=== PATIENT | female | born 1995 | race Hispanic/Latino ===

== ENCOUNTER 2017-11-22 12:22 | Emergency (ER) | payer OTHER ==
--- NOTE | 2017-11-22 12:52 | ER ---
Nurse's Notes [facility] Name: Noa Yoon Age: 22 yrs Sex: Female : 1995 Arrival Date: 11/22/2017 Time: 12:26 Bed 12 Private MD: Diagnosis: Bronchitis, not specified as acute or chronic;Conjunctivitis;Acute serous otitis media, unspecified ear Presentation: 11/22 12:34 Presenting complaint: Patient states: I am 38 weeks and have had a headache la1 and nausea since yesterday'. Transition of care: patient was not received from another setting of care. Onset of symptoms was November 22, 2017. Initial Sepsis Screen: Does the patient meet any 2 criteria? No. Patient's initial sepsis screen is negative. Does the patient have a suspected source of infection? No. Patient's initial sepsis screen is negative. Care prior to arrival: None. 12:34 Method Of Arrival: Ambulatory la1 12:34 Acuity: JULIETTE 4 la1 Historical: - Allergies: 12:35 No Known Allergies; la1 - PMHx: 12:35 None; la1 - Immunization history:: Adult Immunizations up to date. - Social history:: Smoking status: Patient/guardian denies using tobacco. Screenin:10 Abuse screen: Denies threats or abuse. Denies injuries from another. Nutritional ss screening: No deficits noted. Tuberculosis screening: Never had TB. Fall Risk None identified. Assessment: 13:00 General: Appears in no apparent distress. comfortable, Behavior is calm, cooperative, ss Reports feeling ill for 1-2 days, Denies fever. Pain: Complains of pain in left ear Pain currently is 3 out of 10 on a pain scale. Neuro: Level of Consciousness is awake, alert, obeys commands, Oriented to person, place, time, situation. Cardiovascular: Capillary refill < 3 seconds is brisk in bilateral fingers. Respiratory: Airway is patent Respiratory effort is even, unlabored, Respiratory pattern is regular, symmetrical, Breath sounds are clear bilaterally. GI: Abdomen is round patient is 38 weeks , reportedly Reports nausea. : No signs and/or symptoms were reported regarding the genitourinary system. Denies burning with urination, urinary frequency, vaginal bleeding. EENT: eyes are reddened bilaterally. Pt c/o itching to bilateral eyes. . Derm: Skin is intact, is healthy with good turgor, Skin is pink, warm \T\ dry. normal. Musculoskeletal: Circulation, motion, and sensation intact. Range of motion: intact in all extremities, Swelling absent. Vital Signs: 12:35 BP 119 / 79; Pulse 116; Resp 19; Temp 97.5; Pulse Ox 100% on R/A; Weight 61.23 kg; la1 ED Course: 12:26 Patient arrived in ED. as 12:31 [facility] Gutierrez [facility]-C [facility]. snw 12:31 Andrey Munson MD is Attending Physician. snw 12:35 Triage completed. la1 12:35 Arm band placed on left wrist. la1 13:05 Jennifer Logan, STEVE is Primary Nurse. ss 13:10 Patient has correct armband on for positive identification. Bed in low position. Call ss light in reach. 13:10 No provider procedures requiring assistance completed. Patient did not have IV access ss during this emergency room visit. Administered Medications: 13:10 Drug: Augmentin 875 mg Route: PO; ss 13:20 Follow up: Response: No adverse reaction; Medication administered at discharge. ss 13:14 Drug: Gentamicin Drops 0.3 % 2 drops Route: Ophthalmic; Site: both eyes; ss 13:19 Not Given (other intervention used): Gentamicin Ointment 0.3 % 0.5 inches Ophthalmic ss once; Both Eyes Outcome: 12:51 Discharge ordered by MD. snw 13:20 Discharged to home ambulatory. ss 13:20 Condition: good 13:20 Discharge instructions given to patient, Instructed on discharge instructions, follow up and referral plans. medication usage, Demonstrated understanding of instructions, follow-up care, medications, Prescriptions given X 2. 13:23 Patient left the ED. ss Signatures: Mary Gutierrez FNP-C [employer]-Csnw Yancy Jensen as Jennifer Logan, RN STEVE Jorge Middleton RN RN la
--- NOTE | 2017-11-22 12:52 | EDPHYS ---
Physician Documentation [facility] Name: Noa Yoon Age: 22 yrs Sex: Female : 1995 Arrival Date: 11/22/2017 Time: 12:26 Bed 12 Private MD: ED Physician Andrey Munson HPI: 11/22 14:31 This 22 yrs old Female presents to ER via Ambulatory with complaints of Cough, snw Congestion, Headache. 14:31 The patient or guardian reports cough, described as moderate. Onset: The snw symptoms/episode began/occurred suddenly, 2 day(s) ago, and became persistent. Severity of symptoms: At their worst the symptoms were moderate. Associated signs and symptoms: The patient has no apparent associated signs or symptoms. It is unknown whether or not the patient has had similar symptoms in the past. per patient assistant. Son with similar s/s. Historical: - Allergies: 12:35 No Known Allergies; la1 - PMHx: 12:35 None; la1 - Immunization history:: Adult Immunizations up to date. - Social history:: Smoking status: Patient/guardian denies using tobacco. ROS: 14:28 Eyes: Negative for injury, pain, redness, and discharge. snw 14:28 Neck: Negative for injury, pain, and swelling, Cardiovascular: Negative for chest pain, palpitations, and edema. 14:28 Abdomen/GI: Negative for abdominal pain, nausea, vomiting, diarrhea, and constipation, Back: Negative for injury and pain, : Negative for injury, bleeding, discharge, and swelling, MS/Extremity: Negative for injury and deformity, Skin: Negative for injury, rash, and discoloration, Neuro: Negative for headache, weakness, numbness, tingling, and seizure. 14:28 Constitutional: Positive for body aches, malaise. 14:28 ENT: Positive for ear pain. 14:28 Respiratory: Positive for cough. Exam: 14:27 Constitutional: This is a well developed, well nourished patient who is awake, alert, snw and in no acute distress. Head/Face: Normocephalic, atraumatic. Eyes: Pupils equal round and reactive to light, extra-ocular motions intact. Lids and lashes normal. Conjunctiva and sclera are non-icteric but injected. Cornea within normal limits. Periorbital areas with no swelling, redness, or edema. Mild tenderness/pressure sensation around right eye Neck: Trachea midline, no thyromegaly or masses palpated, and no cervical lymphadenopathy. Supple, full range of motion without nuchal rigidity, or vertebral point tenderness. No Meningismus. Chest/axilla: Normal chest wall appearance and motion. Nontender with no deformity. No lesions are appreciated. Cardiovascular: Regular rate and rhythm with a normal S1 and S2. No gallops, murmurs, or rubs. Normal PMI, no JVD. No pulse deficits. Abdomen/GI: Soft, non-tender, with normal bowel sounds. No distension or tympany. No guarding or rebound. No evidence of tenderness throughout. + Gravid appearance, denies abd pain, denies discharge, + 38 wk IUP Back: No spinal tenderness. No costovertebral tenderness. Full range of motion. Skin: Warm, dry with normal turgor. Normal color with no rashes, no lesions, and no evidence of cellulitis. MS/ Extremity: Pulses equal, no cyanosis. Neurovascular intact. Full, normal range of motion. Neuro: Awake and alert, GCS 15, oriented to person, place, time, and situation. Cranial nerves II-XII grossly intact. Motor strength 5/5 in all extremities. Sensory grossly intact. Cerebellar exam normal. Normal gait. 14:27 ENT: TM's: fluid levels, bilaterally, Nose: nasal drainage, and is seen coming from both nares, that is clear, Mouth: is normal, Voice: is normal. 14:27 Respiratory: the patient does not display signs of respiratory distress, Respirations: normal, Breath sounds: + upper airway congestion. bronchitic cough. Vital Signs: 12:35 BP 119 / 79; Pulse 116; Resp 19; Temp 97.5; Pulse Ox 100% on R/A; Weight 61.23 kg; la1 MDM: 12:38 Patient medically screened. snw 14:28 Data reviewed: vital signs, nurses notes. Data interpreted: Pulse oximetry: on room air snw is 100 %. Counseling: I had a detailed discussion with the patient and/or guardian regarding: the historical points, exam findings, and any diagnostic results supporting the discharge/admit diagnosis, the need for outpatient follow up, to return to the emergency department if symptoms worsen or persist or if there are any questions or concerns that arise at home. Special discussion: Based on the history and exam findings, there is no indication for further emergent testing or inpatient evaluation. I discussed with the patient/guardian the need to see the OB Gyne specialist for further evaluation of the symptoms. I discussed with the patient/guardian the need to see the primary care provider for further evaluation of the symptoms. Administered Medications: 13:10 Drug: Augmentin 875 mg Route: PO; ss 13:20 Follow up: Response: No adverse reaction; Medication administered at discharge. ss 13:14 Drug: Gentamicin Drops 0.3 % 2 drops Route: Ophthalmic; Site: both eyes; ss 13:19 Not Given (other intervention used): Gentamicin Ointment 0.3 % 0.5 inches Ophthalmic ss once; Both Eyes Disposition: 11/22/17 12:51 Discharged to Home. Impression: Bronchitis, not specified as acute or chronic, Conjunctivitis, Acute serous otitis media, unspecified ear. - Condition is Stable. - Discharge Instructions: Acute Bronchitis, Conjunctivitis (Viral and Bacterial), Medicines During , Cool Mist Vaporizers, Third Trimester of , [id number]. - Prescriptions for Augmentin 875- 125 mg Oral Tablet - take 1 tablet by ORAL route every 12 hours for 10 days; 20 tablet. Vigamox 0.5 % Ophthalmic Drops - instill 1 drop by OPHTHALMIC route every 8 hours for 7 days; 5 milliliter. - Medication Reconciliation Form, Thank You Letter, Antibiotic Education, Prescription Opioid Use form. - Follow up: Private Physician; When: 1 - 2 days; Reason: Recheck today's complaints, Continuance of care, Re-evaluation by your physician. Follow up: Emergency Department; When: As needed; Reason: Worsening of condition. Addendum: 12/16/2017 12:28 Co-signature as Attending Physician, Andrey Munson MD available for consultation at p s1 all times. . Signatures: Mary Gutierrez, ADWOA NG-Jennifer Oswald RN RN ss Jorge Middleton RN RN la1 Andrey Munson MD MD ps1 Corrections: (The following items were deleted from the chart) 11/22 13:23 12:51 11/22/2017 12:51 Discharged to Home. Impression: Bronchitis, not specified as ss acute or chronic; Conjunctivitis; Acute serous otitis media, unspecified ear. Condition is Stable. Forms are Medication Reconciliation Form, Thank You Letter, Antibiotic Education, Prescription Opioid Use. Follow up: Private Physician; When: 1 - 2 days; Reason: Recheck today's complaints, Continuance of care, Re-evaluation by your physician. Follow up: Emergency Department; When: As needed; Reason: Worsening of condition. snw 14:31 14:27 Constitutional: This is a well developed, well nourished patient who is awake, snw alert, and in no acute distress. Head/Face: Normocephalic, atraumatic. Eyes: Pupils equal round and reactive to light, extra-ocular motions intact. Lids and lashes normal. Conjunctiva and sclera are non-icteric and not injected. Cornea within normal limits. Periorbital areas with no swelling, redness, or edema. Neck: Trachea midline, no thyromegaly or masses palpated, and no cervical lymphadenopathy. Supple, full range of motion without nuchal rigidity, or vertebral point tenderness. No Meningismus. Chest/axilla: Normal chest wall appearance and motion. Nontender with no deformity. No lesions are appreciated. Cardiovascular: Regular rate and rhythm with a normal S1 and S2. No gallops, murmurs, or rubs. Normal PMI, no JVD. No pulse deficits. Abdomen/GI: Soft, non-tender, with normal bowel sounds. No distension or tympany. No guarding or rebound. No evidence of tenderness throughout. Back: No spinal tenderness. No costovertebral tenderness. Full range of motion. Skin: Warm, dry with normal turgor. Normal color with no rashes, no lesions, and no evidence of cellulitis. MS/ Extremity: Pulses equal, no cyanosis. Neurovascular intact. Full, normal range of motion. Neuro: Awake and alert, GCS 15, oriented to person, place, time, and situation. Cranial nerves II-XII grossly intact. Motor strength 5/5 in all extremities. Sensory grossly intact. Cerebellar exam normal. Normal gait. snw
[2017-11-22] MEDS ORDERED: GENTAMICIN 0.3% OPTH DROP 5ML ONE (13:10)
[2017-11-22] MEDS ORDERED: AMOX/K CLAV 875 MG TAB ONE (13:10)
[2017-11-22 13:27] VITALS: BP 119/79; TEMP 97.5; O2SAT 100
== END 2017-11-22 13:23 | disposition home or self-care (01) ==
LOC: ER 12:22
DX: J40 Bronchitis, not specified as acute or chronic (principal); H10.9 Unspecified conjunctivitis; H65.06 Acute serous otitis media, recurrent, bilateral
CPT/HCPCS: 99283

== ENCOUNTER 2017-12-01 05:23 | Inpatient (IN) | payer OTHER ==
[2017-11-30 20:11] LABS: RPR Titer ND
[2017-11-30 20:12] LABS: Absolute Lymphocytes (CBC) 1.3 K/uL (0.7-4.9); Absolute Monocytes 0.5 K/uL (0.1-1.3); Absolute Neutrophil 8.5 K/uL (1.8-8.0); Basophils % 0.2 % (0-1.3); Eosinophils % 0.5 % (0-4.4); Hematocrit 28.4 % (36.0-45.0); MCH 24.7 pg (27.0-35.0); MCV 74.3 fL (80-100); MPV 7.9 fL (7.6-11.3); Monocytes % 4.6 % (3.3-12.3); RBC Red Blood Cell Count 3.82 M/uL (3.86-4.86)
[2017-11-30 20:22] LABS: Urine Appearance CLEAR; Urine Bilirubin NEGATIVE (NEG); Urine Blood NEGATIVE (NEG); Urine Color YELLOW; Urine Glucose NEGATIVE (NEG); Urine Microscopic Reflex NO UMIC; Urine Protein NEGATIVE (NEG); Urine Specific Gravity 1.015 (1.005-1.030)
[2017-11-30 23:42] LABS: RPR (Rapid Plasma Reagin) NON-REACT (NON-REACT)
[~2017-12-01 05:23] MED LIST: CEFAZOLIN/NS 1gm 1 GM/50 ML BAG IVPB SCH; FAMOTIDINE 20 MG/2 ML VIAL IV ONE; METHYLERGONOVINE 0.2MG/ML AMP IM ONE; METOCLOPRAMIDE 10 MG/2mL INJ IV SCH; NA CIT/CITRIC AC 30 ML ORAL UDC PO ONE; Ringers Lactate 1,000 ML IV PRN; Ringers Lactate 1,000 ML IV SCH
[2017-12-01] MEDS ORDERED: FAMOTIDINE 20 MG/2 ML VIAL IV ONE (06:28)
[2017-12-01] MEDS ORDERED: CEFAZOLIN/SWI 2gm 2 GM/20 ML SYR ONE (06:45)
[2017-12-01] MEDS ORDERED: EPHEDRINE SULF 50 MG/ML SYR ONE (07:06)
[2017-12-01] MEDS ORDERED: MORPHINE SULFATE/PF 1 MG/ML (10 ML AMP) ONE (07:06)
[2017-12-01] MEDS ORDERED: NS 0.9% VIAL 10 ML ONE (07:07)
[2017-12-01] MEDS ORDERED: OXYTOCIN 10 UNIT/ML ML IV ONE ×2 (07:09)
[2017-12-01 07:17] VITALS: BMI 23.8
[2017-12-01] MEDS ORDERED: OXYTOCIN/LR 20 UNIT/1,000 ML BAG IV ONE (08:25)
--- NOTE | 2017-12-01 10:52 | PREOPHP ---
Date of Admission: 12/01/2017 History Of Present Illness: A 22-year-old female, 2, para 1, for repeat . On , she will be 39 weeks and 1-2 days. Full discussion previously about infection, blood loss, anesth etic complications, injury to bladder, bowel, ureter, postoperative complications, clots in legs, and pneumonia. The patient knows fully well this does not constitute all the possible problems that cou ld occur during or following surgery. Family History: Father with prostate cancer. Allergies: SHE HAS NO ALLERGIES. SHE HAS HAD A PREVIOUS C SECTION. SHE HAS BEEN ON VITAMINS AND IRON. WAS SEEN IN THE EMERG ENCY ROOM. PLACED ON ANTIBIOTICS AND EYEDROPS. SHE KNOWS TO CONTINUE THOSE. SHE HAS HAD NO FEVER O R ANY OTHER PROBLEMS SINCE SHE WAS SEEN. Physical Examination: Lungs: Clear. Heart: Clear without murmurs, thrills, heaves, or rubs. Breasts: Not examined. Abdomen: Term size. The baby is vertex, is still fairly high. Extremities: Clear without edema, cyanosis, or clubbing. Plan: We will proceed with repeat section on Friday. Full discussion with the ann ent. NAYELY/AMANDA Voice ID: [id number]
[2017-12-01] MEDS ORDERED: KETOROLAC 30 MG/ML INJ IV PRN (11:06)
[2017-12-01] MEDS ORDERED: Oxycodone HCl/Acetaminophen 1 TAB TAB PO PRN ×2 (11:06)
[2017-12-01] MEDS ORDERED: ACETAMINOPHEN 500 MG TAB PO PRN (11:06)
[2017-12-01] MEDS ORDERED: DIPHENHYDRAMINE 25 MG TAB/CAP PO PRN (11:06)
[2017-12-01] MEDS ORDERED: KETOROLAC 30 MG/ML INJ IM PRN (11:06)
[2017-12-01] MEDS ORDERED: BISACODYL 10 MG RECTAL SUPP RECT PRN (11:06)
[2017-12-01] MEDS ORDERED: ONDANSETRON 4 MG/2 ML VIAL IV PRN (11:06)
[2017-12-01] MEDS ORDERED: OXYTOCIN/LR 20 UNIT/1,000 ML BAG IV SCH (12:00)
[2017-12-01] MEDS ORDERED: CEFAZOLIN/SWI 2gm 2 GM/20 ML SYR IV SCH (15:30)
[2017-12-01] MEDS: D5LR 1,000 ML with OXYTOCIN 20 UNIT IV SCH ×2 (17:00)
[2017-12-02] MEDS: D5LR 1,000 ML with OXYTOCIN 20 UNIT IV SCH ×2 (06:30)
[2017-12-02] MEDS ORDERED: MAGNESIUM HYDROXIDE 8% 30 ML PO PRN (11:06)
[2017-12-03 02:53] LABS: HBsAG Nonreactive (Nonreactive)
[2017-12-03] MEDS ORDERED: MEASLES,MUMPS,RUBELLA VAC 0.5ML SQVAC ONE (08:27)
--- NOTE | 2017-12-03 08:45 | OP ---
Surgeon: Jared Beltran MD 2, para 1, at 39 weeks 2 days, for a repeat section. Full preoperative counseling c oncerning procedure and possible complications, including infection, blood loss, anesthetic complicat ions, injury to bladder, bowel, ureter, postoperative complications, clots in legs, and pneumonia. T he patient knows fully well this does not constitute all the possible problems that could occur durin g or following surgery. Spinal block, Dr. Ochoa group. Dog Licenser surgeon, Dr. Man. After p repping and draping, timeout was performed. Then a Pfannenstiel incision was created over the previo us incision site. The incision was carried to the fascia. The fascia was incised and incision latoya d transversely bilaterally. Anterior fascial plane was developed with both blunt and sharp dissectio n. The underlying rectus muscle was . Perineum was elevated and entered. Low transverse ut erine incision was created. At this time, a term male , Apgars 9 and 9 was delivered with nuch al cord x1 loosely. Vacuum suction was used to help deliver the head. Uterus cleared of clot and bl ood, and exteriorized. The placenta was removed manually. Cervical os was dilated with ring clamp. The uterus was closed with a running-locked stitch of 1 chromic. There was bleeding from the left an gle at approximately 4. Czcilj-so-xdzum stitch was placed at this point for complete hemostasis. On the right, approximately 2 mpacpm-dz-wexno stitches in the extreme portion of the incision. Estimate d blood loss was 1000 to 1100 cc. Uterus was replaced into the peritoneal cavity. Gutters were clear ed of clot and blood. Reinspection of the suture line showed no further bleeding. The fascia was cl osed with 1 Vicryl, after muscles were closed with 0 Vicryl. The subcutaneous tissue was closed with 2-0 plain running stitch with absorbable michelle placed and then metal michelle. The patient tolerat ed all procedures well and transferred back to her room in good condition. Final Diagnoses: Term intrauterine , repeat section, spinal block anesthesia. NAYELY/AMANDA Voice ID: [id number] Report ID: [id number]
--- NOTE | 2017-12-03 08:48 | PN ---
Postoperatively, the patient is doing quite well. H and H with minimal change. Lochia is normal. V ital signs are all stable. We will discontinue her Ratliff and IV, begin ambulation. If she continues to do well, she will go home tomorrow. No problems reported by the patient. NAYELY/AMANDA Voice ID: [id number] Report ID: [id number]
[2017-12-03 09:18] VITALS: BP 118/76; TEMP 97.5
--- NOTE | 2017-12-04 06:16 | DS ---
Date of Discharge: 12/03/2017 A 22-year-old female, repeat section at 39 weeks, delivery of a 7 pounds 9 ounces male infan t, Apgars 9 and 9. Spinal block anesthesia. Estimated blood loss less than 1000 cc . Pos toperatively afebrile, ambulating, voiding. Lochia is normal. No post spinal block problems. Dismi ssed with tramadol for analgesia. We will return to my office next week for staple removal. Knows t o report any temperature elevation of 100 degrees or more. She is Rh positive, equivocal. Immunity to rubella. Rubella immunization has been offered. She has had her Tdap immunization during the pre gnancy. Final Diagnoses: 1.Term intrauterine . 2.Repeat section. 3.Spinal block anesthesia. Rubella immunization offered. NAYELY/AMANDA Voice ID: [id number] Report ID: [id number]
== END 2017-12-03 10:30 | disposition home or self-care (01) | DRG 766 ==
LOC: 2ND-WC 05:23
PROVIDERS: ADMIT Specialist; ATTEND Specialist
PROC: 10D00Z1 Extraction of Products of Conception, Low, Open Approach (ICD-10-PCS; principal; 2017-12-01)
DX: O34.211 Maternal care for low transverse scar from previous cesarean delivery (principal); O69.81X0 Labor and delivery complicated by cord around neck, without compression, not applicable or unspecified; Z3A.39 39 weeks gestation of pregnancy; Z37.0 Single live birth; Z23 Encounter for immunization
CPT/HCPCS: 36415; 81003; 85014; 85025; 86592; 86850; 86900; 86901; 87340; 88307; 90707; J0690; J2210; J2590; J2765

== ENCOUNTER 2018-03-02 20:30 | Emergency (ER) | payer OTHER, SELFPAY ==
--- NOTE | 2018-03-02 21:15 | ER ---
Nurse's Notes [facility] Name: Noa Yoon Age: 22 yrs Sex: Female : 1995 Arrival Date: 03/02/2018 Time: 20:57 Bed 11 Private MD: Diagnosis: Muscle spasm Presentation: 03/02 21:01 Presenting complaint: Patient states: pain to the L side of her neck x 2 days. States aa1 she thinks she slept wrong. Transition of care: patient was not received from another setting of care. Onset of symptoms was March 01, 2018. Risk Assessment: Do you want to hurt yourself or someone else? Patient reports no desire to harm self or others. Initial Sepsis Screen: Does the patient meet any 2 criteria? No. Patient's initial sepsis screen is negative. Does the patient have a suspected source of infection? No. Patient's initial sepsis screen is negative. Care prior to arrival: None. 21:01 Method Of Arrival: Ambulatory aa1 21:01 Acuity: JULIETTE 4 aa1 Triage Assessment: 21:49 General: Behavior is calm. lc1 RESIDENTIAL SPECIALIST: 21:49 LMP N/A - control method 1 Historical: - Allergies: 21:03 No Known Allergies; aa1 - Home Meds: 21:03 None [Active]; aa1 - PMHx: 21:03 None; aa1 - PSHx: 21:03 None; aa1 - Immunization history:: Adult Immunizations up to date. - Social history:: Smoking status: Patient/guardian denies using tobacco. - Ebola Screening: : No symptoms or risks identified at this time. Screenin:26 Abuse screen: Denies threats or abuse. Nutritional screening: No deficits noted. lc1 Tuberculosis screening: No symptoms or risk factors identified. Fall Risk None identified. Assessment: 21:08 General: Appears uncomfortable, well groomed, well developed. Pain: Complains of pain lc1 in left trapezius Pain does not radiate. Pain currently is 8 out of 10 on a pain scale. Quality of pain is described as tender, Pain began 2-3 days ago. Is continuous, Aggravated by increased activity. Neuro: No deficits noted. Cardiovascular: Reports. Respiratory: No deficits noted. GI: No signs and/or symptoms were reported involving the gastrointestinal system. : No signs and/or symptoms were reported regarding the genitourinary system. EENT: No signs and/or symptoms were reported regarding the EENT system. Derm: No signs and/or symptoms reported regarding the dermatologic system. Musculoskeletal: No signs and/or symptoms reported regarding the musculoskeletal system. Injury Description: patient denies any injuries to neck, states she thinks she slept wrong, has tried icy hot but that has not helped. Vital Signs: 21:03 BP 120 / 88; Pulse 92; Resp 18; Temp 98.2; Pulse Ox 100% on R/A; Weight 49.9 kg; Height aa1 5 ft. 3 in. (160.02 cm); Pain 8/10; 21:26 BP 120 / 89; Pulse 79; Resp 18; Temp 96.7(TE); Pain 8/10; lc1 21:03 Body Mass Index 19.49 (49.90 kg, 160.02 cm) aa1 ED Course: 20:57 Patient arrived in ED. ds1 21:01 Jose A Judge PA is PHCP. 8 21:01 Andrey Munson MD is Attending Physician. 8 21:02 Triage completed. aa1 21:03 Shayla Omer is Primary Nurse. lc1 21:03 Arm band placed on right wrist. Patient placed in an exam room, on a stretcher. aa1 21:26 Patient has correct armband on for positive identification. Call light in reach. lc1 21:26 No provider procedures requiring assistance completed. Patient did not have IV access lc1 during this emergency room visit. Administered Medications: 21:35 Drug: TORadol 60 mg Route: IM; Site: left deltoid; 1 21:50 Follow up: Response: No adverse reaction lc1 21:38 Drug: Valium 5 mg Route: PO; lc1 21:50 Follow up: Response: No adverse reaction 1 Outcome: 21:15 Discharge ordered by . 8 21:26 Discharged to home ambulatory. 1 21:26 Condition: good 21:26 Discharge instructions given to patient, Instructed on discharge instructions, follow up and referral plans. medication usage, Demonstrated understanding of instructions, follow-up care, medications, Prescriptions given X 2. 21:51 Patient left the ED. 1 Signatures: Raysa Castellanos RN RN aa1 Alvina Myers ds1 Shayla Omer lc1 Jose A Judge, HARRY MCDONALD [id number]
--- NOTE | 2018-03-02 21:15 | EDPHYS ---
Physician Documentation [facility] Name: Noa Yoon Age: 22 yrs Sex: Female : 1995 Arrival Date: 03/02/2018 Time: 20:57 Bed 11 Private MD: ED Physician Andrey Munson HPI: 03/02 21:13 This 22 yrs old Female presents to ER via Ambulatory with complaints of Neck jr8 Spasms. 21:13 Patient stated that she woke up this morning with pain to left lateral trapezius jr8 region. Denies trauma to region . Onset: The symptoms/episode began/occurred acutely, today. Severity of symptoms: At their worst the symptoms were moderate in the emergency department the symptoms are unchanged. The patient has not experienced similar symptoms in the past. The patient has not recently seen a physician. SPECIALIST PHYSICIANS: 21:49 LMP N/A - control method lc1 Historical: - Allergies: 21:03 No Known Allergies; aa1 - Home Meds: 21:03 None [Active]; aa1 - PMHx: 21:03 None; aa1 - PSHx: 21:03 None; aa1 - Immunization history:: Adult Immunizations up to date. - Social history:: Smoking status: Patient/guardian denies using tobacco. - Ebola Screening: : No symptoms or risks identified at this time. ROS: 21:13 Eyes: Negative for injury, pain, redness, and discharge, ENT: Negative for injury, jr8 pain, and discharge, Neck: Negative for injury, pain, and swelling, Cardiovascular: Negative for chest pain, palpitations, and edema, Respiratory: Negative for shortness of breath, cough, wheezing, and pleuritic chest pain, Abdomen/GI: Negative for abdominal pain, nausea, vomiting, diarrhea, and constipation, MS/Extremity: Negative for injury and deformity, Skin: Negative for injury, rash, and discoloration, Neuro: Negative for headache, weakness, numbness, tingling, and seizure. 21:13 Back: Positive for pain at rest, pain with movement, of the left trapezius. Exam: 21:13 Eyes: Pupils equal round and reactive to light, extra-ocular motions intact. Lids and jr8 lashes normal. Conjunctiva and sclera are non-icteric and not injected. Cornea within normal limits. Periorbital areas with no swelling, redness, or edema. ENT: Nares patent. No nasal discharge, no septal abnormalities noted. Tympanic membranes are normal and external auditory canals are clear. Oropharynx with no redness, swelling, or masses, exudates, or evidence of obstruction, uvula midline. Mucous membranes moist. Neck: Trachea midline, no thyromegaly or masses palpated, and no cervical lymphadenopathy. Supple, full range of motion without nuchal rigidity, or vertebral point tenderness. No Meningismus. Cardiovascular: Regular rate and rhythm with a normal S1 and S2. No gallops, murmurs, or rubs. Normal PMI, no JVD. No pulse deficits. Respiratory: Lungs have equal breath sounds bilaterally, clear to auscultation and percussion. No rales, rhonchi or wheezes noted. No increased work of breathing, no retractions or nasal flaring. Abdomen/GI: Soft, non-tender, with normal bowel sounds. No distension or tympany. No guarding or rebound. No evidence of tenderness throughout. Skin: Warm, dry with normal turgor. Normal color with no rashes, no lesions, and no evidence of cellulitis. MS/ Extremity: Pulses equal, no cyanosis. Neurovascular intact. Full, normal range of motion. Neuro: Awake and alert, GCS 15, oriented to person, place, time, and situation. Cranial nerves II-XII grossly intact. Motor strength 5/5 in all extremities. Sensory grossly intact. Cerebellar exam normal. Normal gait. 21:13 Back: pain, that is moderate, of the left trapezius, ROM is painful, with rotation to the left, normal spinal alignment noted, CVA tenderness, is absent. Vital Signs: 21:03 BP 120 / 88; Pulse 92; Resp 18; Temp 98.2; Pulse Ox 100% on R/A; Weight 49.9 kg; Height aa1 5 ft. 3 in. (160.02 cm); Pain 8/10; 21:26 BP 120 / 89; Pulse 79; Resp 18; Temp 96.7(TE); Pain 8/10; lc1 21:03 Body Mass Index 19.49 (49.90 kg, 160.02 cm) aa1 MDM: 21:01 Patient medically screened. jr8 21:13 Data reviewed: vital signs, nurses notes, and as a result, I will discharge patient. jr8 Data interpreted: Pulse oximetry: on room air is 100 %. Interpretation: normal. Counseling: I had a detailed discussion with the patient and/or guardian regarding: the historical points, exam findings, and any diagnostic results supporting the discharge/admit diagnosis, the need for outpatient follow up, a family practitioner, to return to the emergency department if symptoms worsen or persist or if there are any questions or concerns that arise at home. Administered Medications: 21:35 Drug: TORadol 60 mg Route: IM; Site: left deltoid; lc1 21:50 Follow up: Response: No adverse reaction lc1 21:38 Drug: Valium 5 mg Route: PO; lc1 21:50 Follow up: Response: No adverse reaction lc1 Disposition: 23:15 Co-signature as Attending Physician, Andrey Munson MD I agree with the assessment and ps1 plan of care. Disposition: 03/02/18 21:15 Discharged to Home. Impression: Muscle spasm. - Condition is Stable. - Discharge Instructions: Muscle Cramps and Spasms. - Prescriptions for Ibuprofen 800 mg Oral Tablet - take 1 tablet by ORAL route every 12 hours As needed take with food; 20 tablet. Robaxin 500 mg Oral Tablet - take 2 tablet by ORAL route every 6 hours As needed; 40 tablet. - Medication Reconciliation Form, Thank You Letter, Antibiotic Education, Prescription Opioid Use form. - Follow up: Private Physician; When: 2 - 3 days; Reason: Recheck today's complaints, Continuance of care, Re-evaluation by your physician. - Problem is new. - Symptoms have improved. Signatures: Raysa Castellanos RN RN aa1 Shayla Omer lc1 Jose A Judge PA PA jr8 Andrey Munson MD MD ps1 Corrections: (The following items were deleted from the chart) 21:51 21:15 03/02/2018 21:15 Discharged to Home. Impression: Muscle spasm. Condition is lc1 Stable. Forms are Medication Reconciliation Form, Thank You Letter, Antibiotic Education, Prescription Opioid Use. Follow up: Private Physician; When: 2 - 3 days; Reason: Recheck today's complaints, Continuance of care, Re-evaluation by your physician. Problem is new. Symptoms have improved. jr8
[2018-03-02] MEDS ORDERED: KETOROLAC 30 MG/ML INJ ONE (21:35)
[2018-03-02] MEDS ORDERED: DIAZEPAM 5 MG TABLET ONE (21:35)
[2018-03-02 22:09] VITALS: O2SAT 100
[2018-03-02 22:20] VITALS: BP 120/89; TEMP 96.7
== END 2018-03-02 21:51 | disposition home or self-care (01) ==
LOC: ER 20:30
DX: M62.838 Other muscle spasm (principal)
CPT/HCPCS: 96372; 99283

== ENCOUNTER 2018-12-07 14:02 | Emergency (ER) | payer SELFPAY ==
--- NOTE | 2018-12-07 16:16 | ER ---
Nurse's Notes [facility] Name: Noa Yoon Age: 23 yrs Sex: Female : 1995 Arrival Date: 12/07/2018 Time: 14:07 Bed Treatment Private MD: Diagnosis: Acute upper respiratory infection, unspecified Presentation: 12/07 14:31 Presenting complaint: Patient states: cough and nasal congestion that began yesterday. ss Transition of care: patient was not received from another setting of care. Resp Distress? No respiratory distress is noted at this time. Onset of symptoms was December 06, 2018. Risk Assessment: Do you want to hurt yourself or someone else? Patient reports no desire to harm self or others. Initial Sepsis Screen: Does the patient meet any 2 criteria? No. Patient's initial sepsis screen is negative. Does the patient have a suspected source of infection? No. Patient's initial sepsis screen is negative. Care prior to arrival: None. 14:31 Method Of Arrival: Ambulatory ss 14:31 Acuity: JULIETTE 4 ss SPOTTER: 17:31 LMP N/A - iw Historical: - Allergies: 14:32 No Known Allergies; ss - Home Meds: 14:32 None [Active]; ss - PMHx: 14:32 None; ss - PSHx: 14:32 ; ss - Immunization history:: Adult Immunizations up to date. - Social history:: Smoking status: Patient/guardian denies using tobacco. - Ebola Screening: : Patient denies exposure to infectious person Patient denies travel to an Ebola-affected area in the 21 days before illness onset. Screenin:26 Abuse screen: Denies threats or abuse. Denies injuries from another. Nutritional iw screening: No deficits noted. Tuberculosis screening: No symptoms or risk factors identified. Fall Risk None identified. Assessment: 15:27 General: Appears in no apparent distress. Behavior is calm, cooperative. Pain: Denies iw pain. Neuro: Level of Consciousness is awake, alert, obeys commands. Cardiovascular: Capillary refill < 3 seconds Patient's skin is warm and dry. Respiratory: Airway is patent Respiratory effort is even, unlabored, Breath sounds are clear bilaterally. Derm: Skin is intact, is healthy with good turgor. Vital Signs: 14:36 BP 101 / 65 RA; Pulse 96; Resp 20; Temp 97.9(O); Pulse Ox 97% ; ss ED Course: 14:07 Patient arrived in ED. mr 14:32 Triage completed. ss 14:32 Arm band placed on right wrist. ss 15:25 Yumi Álvarez, RN is Primary Nurse. iw 15:28 Anna Sharma FNP-C is [facility]. kb 15:28 Eulogio Velazquez MD is Attending Physician. kb 16:05 Patient has correct armband on for positive identification. iw 16:26 No provider procedures requiring assistance completed. Patient did not have IV access iw during this emergency room visit. Administered Medications: No medications were administered Outcome: 16:16 Discharge ordered by MD. kb 16:26 Discharged to home ambulatory, with family. iw 16:26 Condition: good 16:26 Discharge instructions given to family, Instructed on discharge instructions, follow up and referral plans. Demonstrated understanding of instructions, follow-up care. 16:27 Patient left the ED. iw Signatures: Anna Sharma FNP-C FNP-Ckb Rivera, Mary Yumi Álvarez, RN RN iw Jennifer Logan RN RN ss
--- NOTE | 2018-12-07 16:16 | EDPHYS ---
Physician Documentation [facility] Name: Noa Yoon Age: 23 yrs Sex: Female : 1995 Arrival Date: 12/07/2018 Time: 14:07 Bed Treatment Private MD: ED Physician Eulogio Velazquez HPI: 12/07 16:53 This 23 yrs old Female presents to ER via Ambulatory with complaints of Cough, kb Congestion. 16:53 The patient or guardian reports cough, that is intermittent, described as moderate, kb with no sputum. Onset: The symptoms/episode began/occurred yesterday. Severity of symptoms: At their worst the symptoms were moderate, in the emergency department the symptoms are unchanged. Modifying factors: The symptoms are alleviated by nothing, the symptoms are aggravated by nothing. Associated signs and symptoms: Pertinent positives: sore throat, Pertinent negatives: chest pain, diarrhea, ear ache, fever, nausea, rhinorrhea, vomiting. The patient has not experienced similar symptoms in the past. The patient has not recently seen a physician. CHANNEL TURNER: 17:31 LMP N/A - iw Historical: - Allergies: 14:32 No Known Allergies; ss - Home Meds: 14:32 None [Active]; ss - PMHx: 14:32 None; ss - PSHx: 14:32 ; ss - Immunization history:: Adult Immunizations up to date. - Social history:: Smoking status: Patient/guardian denies using tobacco. - Ebola Screening: : Patient denies exposure to infectious person Patient denies travel to an Ebola-affected area in the 21 days before illness onset. ROS: 16:51 Constitutional: Negative for fever, chills, and weight loss, Cardiovascular: Negative kb for chest pain, palpitations, and edema, Abdomen/GI: Negative for abdominal pain, nausea, vomiting, diarrhea, and constipation, Back: Negative for injury and pain, MS/Extremity: Negative for injury and deformity, Skin: Negative for injury, rash, and discoloration, Neuro: Negative for headache, weakness, numbness, tingling, and seizure. 16:51 ENT: Positive for sore throat. 16:51 Respiratory: Positive for cough. Exam: 16:51 Constitutional: This is a well developed, well nourished patient who is awake, alert, kb and in no acute distress. Head/Face: Normocephalic, atraumatic. ENT: Nares patent. No nasal discharge, no septal abnormalities noted. Tympanic membranes are normal and external auditory canals are clear. Oropharynx with no redness, swelling, or masses, exudates, or evidence of obstruction, uvula midline. Mucous membranes moist. Neck: Trachea midline, no thyromegaly or masses palpated, and no cervical lymphadenopathy. Supple, full range of motion without nuchal rigidity, or vertebral point tenderness. No Meningismus. Chest/axilla: Normal chest wall appearance and motion. Nontender with no deformity. No lesions are appreciated. Cardiovascular: Regular rate and rhythm with a normal S1 and S2. No gallops, murmurs, or rubs. Normal PMI, no JVD. No pulse deficits. Respiratory: Lungs have equal breath sounds bilaterally, clear to auscultation and percussion. No rales, rhonchi or wheezes noted. No increased work of breathing, no retractions or nasal flaring. Abdomen/GI: Soft, non-tender, with normal bowel sounds. No distension or tympany. No guarding or rebound. No evidence of tenderness throughout. Skin: Warm, dry with normal turgor. Normal color with no rashes, no lesions, and no evidence of cellulitis. MS/ Extremity: Pulses equal, no cyanosis. Neurovascular intact. Full, normal range of motion. Neuro: Awake and alert, GCS 15, oriented to person, place, time, and situation. Cranial nerves II-XII grossly intact. Motor strength 5/5 in all extremities. Sensory grossly intact. Cerebellar exam normal. Normal gait. Vital Signs: 14:36 BP 101 / 65 RA; Pulse 96; Resp 20; Temp 97.9(O); Pulse Ox 97% ; ss MDM: 15:29 Patient medically screened. kb 16:15 Data reviewed: vital signs, nurses notes. Data interpreted: Pulse oximetry: on room air kb is 97 %. Interpretation: normal. Counseling: I had a detailed discussion with the patient and/or guardian regarding: the historical points, exam findings, and any diagnostic results supporting the discharge/admit diagnosis, lab results, the need for outpatient follow up, a family practitioner, to return to the emergency department if symptoms worsen or persist or if there are any questions or concerns that arise at home. 12/07 15:36 Order name: Flu; Complete Time: 16:10 kb 12/07 15:36 Order name: Strep; Complete Time: 16:10 kb 12/07 16:11 Order name: Throat Culture EDMS Administered Medications: No medications were administered Disposition: 12/08 07:01 Co-signature as Attending Physician, Eulogio Velazquez MD I agree with the assessment and christiano plan of care. Disposition: 12/07/18 16:16 Discharged to Home. Impression: Acute upper respiratory infection, unspecified. - Condition is Stable. - Discharge Instructions: Upper Respiratory Infection, Adult, [id number], Viral Respiratory Infection, [id number]. - Medication Reconciliation Form, Thank You Letter, Antibiotic Education, Prescription Opioid Use form. - Follow up: Emergency Department; When: As needed; Reason: Worsening of condition. Follow up: Private Physician; When: 2 - 3 days; Reason: Recheck today's complaints, Continuance of care, Re-evaluation by your physician. Signatures: Dispatcher [employer] EDOK Anna Sharma, BUFFING MACHINE OPERATOR SEMIAUTOMATIC-C BUFFING MACHINE OPERATOR SEMIAUTOMATIC-Eulogio Guerra MD MD cha Williams, Irene, STEVE RN Jennifer Garrison RN RN ss Corrections: (The following items were deleted from the chart) 12/07 16:27 16:16 12/07/2018 16:16 Discharged to Home. Impression: Acute upper respiratory iw infection, unspecified. Condition is Stable. Forms are Medication Reconciliation Form, Thank You Letter, Antibiotic Education, Prescription Opioid Use. Follow up: Emergency Department; When: As needed; Reason: Worsening of condition. Follow up: Private Physician; When: 2 - 3 days; Reason: Recheck today's complaints, Continuance of care, Re-evaluation by your physician. kb
[2018-12-07 17:34] VITALS: BP 101/65; TEMP 97.9; O2SAT 97
== END 2018-12-07 16:27 | disposition home or self-care (01) ==
LOC: ER 14:02
DX: J06.9 Acute upper respiratory infection, unspecified (principal)
CPT/HCPCS: 87070; 87081; 87804; 99281

== ENCOUNTER 2020-01-26 11:57 | Emergency (ER) | payer OTHER, SELFPAY ==
[2020-01-26] MEDS ORDERED: KETOROLAC 30 MG/ML INJ ONE (12:43)
[2020-01-26 13:01] LABS: Absolute Lymphocytes (CBC) 1.2 K/uL (0.7-4.9); Basophils % 0.6 % (0-1.3); Hematocrit 34.6 % (36.0-45.0); MPV 10.5 fL (7.6-11.3)
[2020-01-26 13:02] LABS: ALT/SGPT 15 U/L (12-78); AST/SGOT 13 U/L (15-37); Albumin 3.6 g/dL (3.4-5.0); Alkaline Phosphatase 76 U/L (45-117); BUN Blood Urea Nitrogen 9 mg/dL (7-18); Bicarbonate 26 mmol/L (21-32); Bilirubin Direct < 0.1 mg/dL (0-0.2); Bilirubin Total 0.3 mg/dL (0.2-1.0); Glucose Level 91 mg/dL (74-106); Lipase 103 U/L (73-393); Potassium 3.8 mmol/L (3.5-5.1); Protein, Total 7.2 g/dL (6.4-8.2); Sodium Level 142 mmol/L (136-145)
--- NOTE | 2020-01-26 14:10 | ER ---
Nurse's Notes [facility] Name: Noa Yoon Age: 24 yrs Sex: Female : 1995 Arrival Date: 01/26/2020 Time: 12:00 Bed 14 Private MD: Diagnosis: Dysmenorrhea, unspecified Presentation: 01/25 12:04 Chief complaint: Patient states: abd cramping that began this morning. Pt reports she ss started her menstrual cycle yesterday, but does not usually have cramping. Coronavirus screen: Proceed with normal triage. Patient denies a cough. Patient denies shortness of breath or difficulty breathing. Patient denies measured and/or subjective temperature greater than 100.4F prior to today's visit. Patient denies travel on a cruise ship or to a country the [facility] currently lists as an affected area. Patient denies contact with known and/or suspected case of COVID-19. Ebola Screen: Patient denies exposure to infectious person. Patient denies travel to an Ebola-affected area in the 21 days before illness onset. Initial Sepsis Screen: Does the patient meet any 2 criteria? No. Patient's initial sepsis screen is negative. Does the patient have a suspected source of infection? No. Patient's initial sepsis screen is negative. Risk Assessment: Do you want to hurt yourself or someone else? Patient reports no desire to harm self or others. Onset of symptoms was January 26, 2020. 12:04 Method Of Arrival: Ambulatory ss 12:04 Acuity: JULIETTE 3 ss DOCUMENT DESIGN SPECIALIST: 13:05 LMP 01/25/2020 ll1 Historical: - Allergies: 12:09 No Known Allergies; ss - Home Meds: 12:09 None [Active]; ss - PMHx: 12:09 None; ss - PSHx: 12:09 ; ss - Immunization history:: Adult Immunizations up to date. - Social history:: Smoking status: Patient denies any tobacco usage or history of. Screenin:11 Abuse screen: Denies threats or abuse. Nutritional screening: No deficits noted. ll1 Tuberculosis screening: No symptoms or risk factors identified. Fall Risk None identified. Total Bunch Fall Scale indicates No Risk (0-24 pts). Assessment: 12:10 General: Appears in no apparent distress. Behavior is calm, cooperative. Neuro: No ll1 deficits noted. Cardiovascular: No deficits noted. Respiratory: No deficits noted. GI: Abdomen is flat, Bowel sounds present X 4 quads. Abd is soft and non tender X 4 quads. Reports cramping. : Reports started mensus yesterday. 12:30 Pain: Complains of pain in right mid abdomen Pain currently is 6 out of 10 on a pain ll1 scale. Quality of pain is described as aching, Is intermittent. Vital Signs: 12:04 BP 125 / 88; Pulse 77; Resp 15; Temp 98.3(TE); Pulse Ox 100% on R/A; Weight 54.43 kg; ss Height 5 ft. 1 in. (154.94 cm); Pain 8/10; 12:04 Body Mass Index 22.67 (54.43 kg, 154.94 cm) ED Course: 12:00 Patient arrived in ED. mr 12:09 Triage completed. 12:09 Arm band placed on right wrist. 12:10 Stephanie Mazariegos RN is Primary Nurse. ll1 12:10 Jose A Judge PA is PHCP. jr8 12:10 Farhad Mosquera MD is Attending Physician. jr8 12:10 Inserted saline lock: 20 gauge in right antecubital area, using aseptic technique. ll1 Blood collected. 12:11 Patient has correct armband on for positive identification. Bed in low position. Call ll1 light in reach. Side rails up X 1. 13:06 Warm blanket given. ll1 14:01 US Transvaginal Study (Probe) In Process Unspecified. EDMS Administered Medications: 12:39 Drug: TORadol - Ketorolac 15 mg Route: IVP; Site: right antecubital; ll1 Outcome: 14:09 Discharge ordered by . jesus 14:20 Discharged to home ambulatory. 14:20 Condition: good 14:20 Discharge instructions given to patient, Instructed on discharge instructions, Demonstrated understanding of instructions, follow-up care. 14:34 Patient left the ED. Signatures: Dispatcher [employer] EDTN Apolonia Cross Shelby, STEVE WILSON Jose A Judge PA PA jr8 Josefina Evans RN STEVE Stephanie Mazariegos RN RN ll1
--- NOTE | 2020-01-26 14:10 | EDPHYS ---
Physician Documentation [facility] Name: Noa Yoon Age: 24 yrs Sex: Female : 1995 Arrival Date: 01/26/2020 Time: 12:00 Bed 14 Private MD: ED Physician Farhad Mosquera HPI: 01/25 13:20 This 24 yrs old Female presents to ER via Ambulatory with complaints of jr8 Abdominal Pain. 13:20 The patient presents with abdominal pain in the lower abdomen. Onset: The jr8 symptoms/episode began/occurred acutely, today. The symptoms do not radiate. Associated signs and symptoms: none. The symptoms are described as crampy. Modifying factors: The symptoms are alleviated by nothing, the symptoms are aggravated by nothing. Severity of pain: At its worst the pain was moderate in the emergency department the pain is unchanged. The patient has not experienced similar symptoms in the past. The patient has not recently seen a physician. Patient stated that she just started her menstrual cycle. Now having lower abdominal cramping that she normally does not have . 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 - Social history:: Smoking status: Patient denies any tobacco usage or history of. ROS: 13:20 Eyes: Negative for injury, pain, redness, and discharge, ENT: Negative for injury, jr8 pain, and discharge, Neck: Negative for injury, pain, and swelling, Cardiovascular: Negative for chest pain, palpitations, and edema, Respiratory: Negative for shortness of breath, cough, wheezing, and pleuritic chest pain, Back: Negative for injury and pain, MS/Extremity: Negative for injury and deformity, Skin: Negative for injury, rash, and discoloration, Neuro: Negative for headache, weakness, numbness, tingling, and seizure. 13:20 Abdomen/GI: Positive for abdominal cramps, Negative for nausea, vomiting, and diarrhea. 13:20 : Positive for vaginal bleeding. Exam: 13:20 Eyes: Pupils equal round and reactive to light, extra-ocular motions intact. Lids and jr8 lashes normal. Conjunctiva and sclera are non-icteric and not injected. Cornea within normal limits. Periorbital areas with no swelling, redness, or edema. ENT: Nares patent. No nasal discharge, no septal abnormalities noted. Tympanic membranes are normal and external auditory canals are clear. Oropharynx with no redness, swelling, or masses, exudates, or evidence of obstruction, uvula midline. Mucous membranes moist. Neck: Trachea midline, no thyromegaly or masses palpated, and no cervical lymphadenopathy. Supple, full range of motion without nuchal rigidity, or vertebral point tenderness. No Meningismus. Cardiovascular: Regular rate and rhythm with a normal S1 and S2. No gallops, murmurs, or rubs. Normal PMI, no JVD. No pulse deficits. Respiratory: Lungs have equal breath sounds bilaterally, clear to auscultation and percussion. No rales, rhonchi or wheezes noted. No increased work of breathing, no retractions or nasal flaring. Back: No spinal tenderness. No costovertebral tenderness. Full range of motion. Skin: Warm, dry with normal turgor. Normal color with no rashes, no lesions, and no evidence of cellulitis. MS/ Extremity: Pulses equal, no cyanosis. Neurovascular intact. Full, normal range of motion. Neuro: Awake and alert, GCS 15, oriented to person, place, time, and situation. Cranial nerves II-XII grossly intact. Motor strength 5/5 in all extremities. Sensory grossly intact. Cerebellar exam normal. Normal gait. 13:20 Abdomen/GI: Inspection: abdomen appears normal, Bowel sounds: active, all quadrants, Palpation: soft, in all quadrants, mild abdominal tenderness, in the suprapubic area and right lower quadrant, mass, is not appreciated, rebound tenderness, is not appreciated, voluntary guarding, is not appreciated, involuntary guarding, is not appreciated, no appreciated organomegaly, Indicators: McBurney's point is not tender, Scott's sign is negative, Rovsing's sign is negative, Liver: tenderness, is not appreciated. Vital Signs: 12:04 BP 125 / 88; Pulse 77; Resp 15; Temp 98.3(TE); Pulse Ox 100% on R/A; Weight 54.43 kg; ss Height 5 ft. 1 in. (154.94 cm); Pain 8/10; 12:04 Body Mass Index 22.67 (54.43 kg, 154.94 cm) ss MDM: 12:11 Patient medically screened. 14:07 Data reviewed: vital signs, nurses notes, lab test result(s), radiologic studies, jr8 ultrasound, and as a result, I will discharge patient. Data interpreted: Pulse oximetry: on room air is 100 %. Interpretation: normal. Counseling: I had a detailed discussion with the patient and/or guardian regarding: the historical points, exam findings, and any diagnostic results supporting the discharge/admit diagnosis, lab results, radiology results, the need for outpatient follow up, a family practitioner, an OB/Gyne specialist, to return to the emergency department if symptoms worsen or persist or if there are any questions or concerns that arise at home. Special discussion: Based on the patient's Hx, exam, and Dx evaluation, there is no indication for emergent surgery or inpatient Tx. It is understood by the patient/guardian that if the Sx's persist or worsen they need to return immediately for re-evaluation. ED course: No significant findings on labs or imaging. VS stable. Pain cramping in nature and coinciding with menstrual cycle. Most likely menstrual cramps. No other signs for colon or appendiceal infection based on labs and exam. Return precautions and s/s given to watch for that would warrant her needing to come back. Patient good with this . 01/25 12:11 Order name: Basic Metabolic Panel; Complete Time: 13: 01/25 12:11 Order name: CBC with Diff; Complete Time: 13: 01/25 12:11 Order name: Hepatic Function; Complete Time: 13: 01/25 12:11 Order name: Lipase; Complete Time: 13:21 01/25 13:22 Order name: US Transvaginal Study (Probe) 01/25 12:11 Order name: IV Saline Lock; Complete Time: 12:01/25 12:11 Order name: Labs collected and sent; Complete Time: 12: [facility] 01/25 12:11 Order name: Urine Test (obtain specimen); Complete Time: 12: [facility] 01/25 12:11 Order name: Urine Dipstick-Ancillary (obtain specimen) jr8 Administered Medications: 12:39 Drug: TORadol - Ketorolac 15 mg Route: IVP; Site: right antecubital; ll1 Disposition: 16:02 Co-signature as Attending Physician, Farhad Mosquera MD. rn Disposition: 01/26/20 14:09 Discharged to Home. Impression: Dysmenorrhea, unspecified. - Condition is Stable. - Discharge Instructions: Dysmenorrhea. - Medication Reconciliation Form, Thank You Letter, Antibiotic Education, Prescription Opioid Use form. - Follow up: Private Physician; When: 5 - 6 days; Reason: If symptoms return, Recheck today's complaints, Continuance of care, Re-evaluation by your physician. - Problem is new. - Symptoms have improved. Signatures: Dispatcher [employer] EDMS Farhad Mosquera MD MD rn Smirch, Shelby, RN RN ss Roszak, Josh, PA PA jr8 Josefina Evans RN RN ah Lewis, Lynsay, RN RN ll1 Corrections: (The following items were deleted from the chart) 14:34 14:09 01/26/2020 14:09 Discharged to Home. Impression: Dysmenorrhea, unspecified. ah Condition is Stable. Forms are Medication Reconciliation Form, Thank You Letter, Antibiotic Education, Prescription Opioid Use. Follow up: Private Physician; When: 5 - 6 days; Reason: If symptoms return, Recheck today's complaints, Continuance of care, Re-evaluation by your physician. Problem is new. Symptoms have improved. jr8
--- OUTSIDE RECORDS SUMMARY | 2020-01-26 14:28 | XMS REPORT | Continuity of Care Document ---
:1995 Author Organization [facility] t Address [address] [place] [address] Care Team Providers Name Role Phone Kamini Small Attending Clinician Eyal Fernando MD Attending Clinician Doctor Unassigned, Name Attending Clinician Unavailable Edwardo VANCE, L Attending Clinician Eyal Fernando MD Admitting Clinician Problems This patient has no known problems. Allergies, Adverse Reactions, Alerts This patient has no known allergies or adverse reactions. Medications This patient has no known medications. Procedures This patient has no known procedures. 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 [id number] Visit [facility] [id number] MATERNAL [id number] & CHILD [address] [place] [address] 2019-04-01 2019-04-01 [facility] Olivia Fernando [facility] [id number] 16:38:02 19:54:00 Encounter Eyal [place] [id number] [place] [id number] [place] [id number] 2019-04-01 2019-04-01 Orders Doctor DANIELS [id number] 00:00:00 00:00:00 Only Unassigned, AMBAR [id number] [place] [id number] [id number] 2019-03-26 2019-03-26 Routine Henri [facility] [id number] 13:10:26 13:34:57 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 [id number] 00:00:00 00:00:00 Management [facility] [id number] [place] [id number] 2019-03-12 2019-03-12 Orders Doctor FRANCES [id number] 00:00:00 00:00:00 Only Unassigned, AMBAR [id number] [place] [id number] Results This patient has no known results.
--- NOTE | 2020-01-26 14:50 | RAD REPORT ---
EXAM DESCRIPTION: US - Transvaginal Study Probe - 01/26/2020 2:00 pm CLINICAL HISTORY: ABD PAIN COMPARISON: No comparisons TECHNIQUE: Endovaginal sonography was performed. FINDINGS: Endometrial stripe is 6 mm. No endometrial mass, polyp or endometrial canal abnormality. T he endometrium - myometrium interface is normal. No myometrial mass is seen. Uterine size is normal. Both ovaries are identifiable. Normal blood flow seen within the stroma on Doppler assessment. No donavon picious solid or cystic ovarian or adnexal finding. No blood or fluid in the cul de sac. IMPRESSION: Unremarkable endovaginal pelvic ultrasound.
[2020-01-26 18:23] VITALS: BP 125/88; TEMP 98.3; O2SAT 100
== END 2020-01-26 14:34 | disposition home or self-care (01) ==
LOC: ER 11:57
DX: N94.6 Dysmenorrhea, unspecified (principal)
CPT/HCPCS: 36415; 76830; 80048; 80076; 83690; 85025; 96374; 99284

== ENCOUNTER 2021-03-30 22:12 | Emergency (ER) | payer OTHER ==
--- OUTSIDE RECORDS SUMMARY | 2021-03-30 22:15 | XMS REPORT | Continuity of Care Document ---
:1995 Author Organization [facility] t Address [address] [place] [address] Care Team Providers Name Role Phone Kamini Small Attending Clinician Eyal Fernando MD Attending Clinician Doctor Unassigned, Name Attending Clinician Unavailable Edwardo VANCE, L Attending Clinician Abdullahi VANCE, Eyal Admitting Clinician Problems This patient has no known problems. Allergies, Adverse Reactions, Alerts This patient has no known allergies or adverse reactions. Medications This patient has no known medications. Procedures This patient has no known procedures. 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 [id number] Visit [facility] [id number] MATERNAL [id number] & CHILD [address] [place] [address] 2019-04-01 2019-04-01 [facility] Olivia Fernando NJRAFAEL[place] [id number] 16:38:02 19:54:00 Encounter Eyal [place] [id number] [place] 4.2.7.2.686 [place] [id number] 2019-04-01 2019-04-01 Orders Doctor DANIELS [id number] 00:00:00 00:00:00 Only Unassigned, AMBAR [id number] [place] [address].686 [id number] 2019-03-26 2019-03-26 Routine Henri [facility] [id number] 13:10:26 13:34:57 Kamini Kee FORESTRY PILOT [id number] Visit [facility] [id number] MATER[place] [id number] & CHILD [address] [place] [address] 2019-03-17 2019-03-17 Case Edwardo [facility] [id number] 00:00:00 00:00:00 Management [facility] [id number] [place] [id number] 2019-03-12 2019-03-12 Orders Doctor FRANCES [id number] 00:00:00 00:00:00 Only UnassignedAMBAR [id number] [place] [id number] [id number] Results This patient has no known results.
--- NOTE | 2021-03-31 01:02 | EDPHYS ---
Physician Documentation [facility] Name: Noa Yoon Age: 25 yrs Sex: Female : 1995 Arrival Date: 03/30/2021 Time: 22:39 Bed Waiting Private MD: ED Physician Farhad Mosquera HPI: 03/31 01:00 This 25 yrs old Female presents to ER via Ambulatory with complaints of jmm COVID-19 exposure. 01:00 Onset: The symptoms/episode began/occurred at an unknown time. It is unknown whether or jmm not the patient has had similar symptoms in the past. Patient states she was exposed to COVID-19. Denies any cough, congestion, vomiting. Historical: - Allergies: 03/30 23:08 No Known Allergies; em - PMHx: 23:08 None; em - PSHx: 23:08 section; em - Immunization history:: Client reports receiving the 2nd dose of the Covid vaccine. - Social history:: Smoking status: Patient denies any tobacco usage or history of. ROS: 03/31 01:00 Constitutional: Negative for fever, chills, and weight loss, Cardiovascular: Negative jmm for chest pain, palpitations, and edema, Respiratory: Negative for shortness of breath, cough, wheezing, and pleuritic chest pain, Abdomen/GI: Negative for abdominal pain, nausea, vomiting, diarrhea, and constipation. All other systems are negative. Exam: 01:00 Constitutional: This is a well developed, well nourished patient who is awake, alert, jmm and in no acute distress. Head/Face: atraumatic. Eyes: EOMI, no conjunctival erythema appreciated ENT: Moist Mucus Membranes Neck: Trachea midline, Supple Chest/axilla: Normal chest wall appearance and motion. Cardiovascular: Regular rate and rhythm. No edema appreciated Respiratory: Normal respirations, no respiratory distress appreciated Abdomen/GI: Non distended, soft Back: Normal ROM Skin: General appearance color normal MS/ Extremity: Moves all extremities, no obvious deformities appreciated, no edema noted to the lower extremities Neuro: Awake and alert, normal gait Psych: Behavior is normal, Mood is normal, Patient is cooperative and pleasant Vital Signs: 03/30 23:07 BP 115 / 89; Pulse 92; Resp 16; Temp 98.5; Pulse Ox 98% on R/A; Weight 49.9 kg; em MDM: 03/31 01:00 Patient medically screened. [facility] 01:01 Data reviewed: vital signs, nurses notes. Counseling: I had a detailed discussion with jhony the patient and/or guardian regarding: the historical points, exam findings, and any diagnostic results supporting the discharge/admit diagnosis, lab results, the need for outpatient follow up, to return to the emergency department if symptoms worsen or persist or if there are any questions or concerns that arise at home. 03/31 00:10 Order name: SARS-COV-2 RT PCR; Complete Time: 00:31 EDMS Administered Medications: No medications were administered Disposition: 02:09 Co-signature as Attending Physician, Farhad Mosquera MD I agree with the assessment and rn plan of care. Attestation: The patient's history, exam findings, diagnostics, and a summary of any interventions or procedures was reviewed in detail with Rodrigo MCDONALD. Disposition Summary: 03/31/21 01:02 Discharge Ordered Location: Home [facility] Condition: Stable [facility] Diagnosis - Person with feared health complaint in whom no diagnosis is made [facility] Followup: [facility] - With: Private Physician - When: 2 - 3 days - Reason: Recheck today's complaints, Continuance of care, Re-evaluation by your physician Discharge Instructions: - Discharge Summary Sheet [facility] - COVID-19 [facility] Forms: - Medication Reconciliation Form [facility] - Thank You Letter [facility] - Antibiotic Education jm - Prescription Opioid Use [facility] Signatures: Dispatcher [employer] EDRodrigo Ceballos PA PA [facility] Deejay Rosa, RN RN em Farhad Mosquera MD MD policy intern: (The following items were deleted from the chart) 03/30 23:13 23:00 CORONAVIRUS+LAB.BRZ ordered. EDOR EDMS
--- NOTE | 2021-03-31 01:02 | ER ---
Nurse's Notes [facility] Name: Noa Yoon Age: 25 yrs Sex: Female : 1995 Arrival Date: 03/30/2021 Time: 22:39 Bed Waiting Private MD: Diagnosis: Person with feared health complaint in whom no diagnosis is made Presentation: 03/30 23:07 Chief complaint: Patient states: son was exposed to covid yesterday at school, mother em had sore throat and cough yesterday. Coronavirus screen: Vaccine status: Patient reports receiving the 2nd dose of the covid vaccine. Ebola Screen: Patient negative for fever greater than or equal to 101.5 degrees Fahrenheit, and additional compatible Ebola Virus Disease symptoms Patient denies exposure to infectious person. Patient denies travel to an Ebola-affected area in the 21 days before illness onset. No symptoms or risks identified at this time. Initial Sepsis Screen: Does the patient meet any 2 criteria? No. Patient's initial sepsis screen is negative. Does the patient have a suspected source of infection? No. Patient's initial sepsis screen is negative. Risk Assessment: Do you want to hurt yourself or someone else? Patient reports no desire to harm self or others. Onset of symptoms was March 30, 2021. 23:07 Method Of Arrival: Ambulatory em 23:07 Acuity: JULIETTE 4 em Triage Assessment: 23:08 General: Appears in no apparent distress. comfortable, Behavior is calm, appropriate em for age. Pain: Denies pain. Neuro: Level of Consciousness is awake, alert, obeys commands, Oriented to person, place, time, situation. Cardiovascular: Capillary refill < 3 seconds Patient's skin is warm and dry. Respiratory: Airway is patent Respiratory effort is even, unlabored, Respiratory pattern is regular, symmetrical. Derm: Skin is intact, is healthy with good turgor, Skin is pink, warm \T\ dry. Musculoskeletal: Capillary refill < 3 seconds, Range of motion: intact in all extremities. Historical: - Allergies: 23:08 No Known Allergies; em - PMHx: 23:08 None; em - PSHx: 23:08 section; em - Immunization history:: Client reports receiving the 2nd dose of the Covid vaccine. - Social history:: Smoking status: Patient denies any tobacco usage or history of. Screenin:09 Abuse screen: Denies threats or abuse. Nutritional screening: No deficits noted. em Tuberculosis screening: No symptoms or risk factors identified. Fall Risk None identified. Vital Signs: 23:07 BP 115 / 89; Pulse 92; Resp 16; Temp 98.5; Pulse Ox 98% on R/A; Weight 49.9 kg; em ED Course: 22:39 Patient arrived in ED. em 22:51 Rodrigo Guan PA is PHCP. [facility] 22:51 Farhad Mosquera MD is Attending Physician. m 23:08 Triage completed. em 23:08 Arm band placed on. em 23:09 Patient has correct armband on for positive identification. em 23:09 No provider procedures requiring assistance completed. Patient did not have IV access em during this emergency room visit. 03/31 00:59 Deejay Rosa, RN is Primary Nurse. em Administered Medications: No medications were administered Outcome: 01:02 Discharge ordered by . [facility] 01:12 Discharged to home ambulatory. em 01:12 Condition: stable 01:12 Instructed on left before instructions were given 01:13 Patient left the ED. em Signatures: Rodrigo Guan PA PA jmm Munoz, Edgar, RN RN em
[2021-03-31 01:23] VITALS: BP 115/89; TEMP 98.5; O2SAT 98
== END 2021-03-31 01:13 | disposition home or self-care (01) ==
LOC: ER 22:12
DX: Z20.822 Contact with and (suspected) exposure to COVID-19 (principal)
CPT/HCPCS: 99281; U0003

== ENCOUNTER 2021-07-05 13:55 | Emergency (ER) | payer OTHER ==
--- OUTSIDE RECORDS SUMMARY | 2021-07-05 13:59 | XMS REPORT | Continuity of Care Document ---
:1995 Author Organization [facility] t Address [address] [place] [address] Care Team Providers Name Role Phone Henri Kamini NG Attending Clinician Eyal Fernando MD Attending Clinician Doctor Unassigned, Name Attending Clinician Unavailable Edwardo VANCE, L Attending Clinician Lab Attending Clinician Unavailable Eyal Fernando MD Admitting Clinician Payers Payer Name Policy Type Policy Number Effective Date Expiration Date S ource Problems Condition Condition Condition Status Onset Resolution Last Treating Co mments Source Name Details Category Date Date Treatment Clinician Date Anemia of Anemia of Disease Active Uni vers mother in mother in 8-12 [place]y [place] ante[place] antepartum 00 Me dical Branch Tubal Tubal Disease Active Univers ligation ligation 8-09 ity of status status 00:00: [place] [address] Medical Branch Abnormal Abnormal Disease Active Overview: Un [place] quad quad 7-15 OSB 1:15, ity of screen screen 00:00: may need [place] [address] recalcula Medical tion Branch Susceptibl Susceptibl Disease Active Overview : Univers e to e to 6-17 Address ity of varicella [place] (non-immun (non-immun 00 Me dical e), e), Branch currently currently High-risk High-risk Disease Active 2016-08 Overview: Univers , , 2-05 See it y of third third 00:00: scanned [place] trimester trimester 00 records Med ical for prior Branch visit Previous Previous Disease Active 2016-08 Overview: Un [place] 2-05 X2 ity of delivery delivery 00:00: [place] affecting affecting 00 Medi beka , , Br anch antepartum antepartum Multiparit Multiparit Disease Active 2016-08 U nivers y y 2-05 ity of 00:00: [place] 00 Medical Branch Allergies, Adverse Reactions, Alerts This patient has no known allergies or adverse reactions. Social History Social Habit Start Date Stop Date Quantity Comments Source ASSERTION 2018-08-25 [facility] 00:00:00 Medical Branch Alcohol intake [facility] [place] [facility] [place] [facility] Smoking Status Start Date Stop Date Source Never smoker [facility] Medications Ordered Filled Start Stop Current Ordering Indication Dosage Frequency Signature Comments Components Source Medication Medication Date Date Medication? Clinician (SIG) Name Name metroNIDAZO 2019- No [id number] 500mg Take 2 Univers LE 250 mg 8-29 -06 tablets by ity of tablet 00:00: 04:59 mouth 2 [place] 00 :00 (two) Medical times Branch daily for 7 days. Iron, Cbn & 2019-0 Yes 1{tbl} Take 1 Univers Gluc-FA-B12 8-12 tablet by ity of -C-DSS 00:00: mouth [place] (FERRALET 00 daily. [place] [address] Branch DUAL-IRON DELIVERY) 90-1-12-50 mg-mg-mcg-m g per tablet Iron, Cbn & 2019-0 Yes [id number] 1{tbl} Take 1 Univers Gluc-FA-B12 8-12 tablet by ity of -C-DSS 00:00: mouth [place] (FERRALET 00 daily. [place] [address] Branch DUAL-IRON DELIVERY) 90-1-12-50 mg-mg-mcg-m g per tablet Iron, Cbn & 2019-0 Yes 1{tbl} Take 1 Univers Gluc-FA-B12 8-12 tablet by ity of -C-DSS 00:00: mouth [place] (FERRALET 00 daily. [facility] 90 Branch DUAL-IRON DELIVERY) 90-1-12-50 mg-mg-mcg-m g per tablet Iron, Cbn & 2019-0 Yes [id number] 1{tbl} Take 1 Univers Gluc-FA-B12 8-12 tablet by ity of -C-DSS 00:00: mouth [place] (FERRALET 00 daily. Medical Branch DUAL-IRON DELIVERY) 90-1-12-50 mg-mg-mcg-m g per tablet Iron, Cbn & 2019-0 Yes [id number] 1{tbl} Take 1 Univers Gluc-FA-B12 8-12 tablet by ity of -C-DSS 00:00: mouth [place] (FERRALET 00 daily. Medical Branch DUAL-IRON DELIVERY) 90-1-12-50 mg-mg-mcg-m g per tablet Iron, Cbn & 2019-0 Yes [id number] 1{tbl} Take 1 Univers Gluc-FA-B12 8-12 tablet by ity of -C-DSS 00:00: mouth [place] (FERRALET [address] DUAL-IRON DELIVERY) 90-1-12-50 mg-mg-mcg-m g per tablet Iron, Cbn & 2019-0 Yes [id number] 1{tbl} Take 1 Univers Gluc-FA-B12 8-12 tablet by ity of -C-DSS 00:00: mouth [place] (FERRALET 00 daily. [place] [address] Branch DUAL-IRON DELIVERY) 90-1-12-50 mg-mg-mcg-m g per tablet Iron, Cbn & 2019-0 Yes [id number] 1{tbl} Take 1 Univers Gluc-FA-B12 8-12 tablet by ity of -C-DSS 00:00: mouth [place] (FERRALET 00 daily. [place] [address] Branch DUAL-IRON DELIVERY) 90-1-12-50 mg-mg-mcg-m g per tablet Iron, Cbn & 2019-0 Yes [id number] 1{tbl} Take 1 Univers Gluc-FA-B12 8-12 tablet by ity of -C-DSS 00:00: mouth [place] (FERRALET 00 daily. [place] [address] Branch DUAL-IRON DELIVERY) 90-1-12-50 mg-mg-mcg-m g per tablet 2019-0 Yes [id number] 1{packe Take 1 Univers vit 8-09 t} Packet by ity of 33-iron-fol 00:00: mouth [place] ic-dha 00 daily. Medical (SELECT-OB Branch + DHA) 29 mg iron-1 mg -250 mg combo pack Yes [id number] 1{packe Take 1 Univers vit 8-09 t} Packet by ity of 33-iron-fol 00:00: mouth [place] ic-dha daily. Medical (SELECT-OB Branch + DHA) 29 mg iron-1 mg -250 mg combo pack Yes [id number] 1{packe Take 1 Univers vit 8-09 t} Packet by ity of 33-iron-fol 00:00: mouth [place] ic-dha daily. Medical (SELECT-OB Branch + DHA) 29 mg iron-1 mg -250 mg combo pack Yes [id number] 1{packe Take 1 Univers vit 8-09 t} Packet by ity of 33-iron-fol 00:00: mouth [place] ic-dha daily. Medical (SELECT-OB Branch + DHA) 29 mg iron-1 mg -250 mg combo pack Yes [id number] 1{packe Take 1 Univers vit 8-09 t} Packet by ity of 33-iron-fol 00:00: mouth [place] ic-dha daily. Medical (SELECT-OB Branch + DHA) 29 mg iron-1 mg -250 mg combo pack Yes [id number] 1{packe Take 1 Univers vit 8-09 t} Packet by ity of 33-iron-fol 00:00: mouth [place] ic-dha daily. Medical (SELECT-OB Branch + DHA) 29 mg iron-1 mg -250 mg combo pack Yes [id number] 1{packe Take 1 Univers vit 8-09 t} Packet by ity of 33-iron-fol 00:00: mouth [place] ic-dha daily. Medical (SELECT-OB Branch + DHA) 29 mg iron-1 mg -250 mg combo pack Yes [id number] 1{packe Take 1 Univers vit 8-09 t} Packet by ity of 33-iron-fol 00:00: mouth [place] ic-dha 00 daily. Medical (SELECT-OB Branch + DHA) 29 mg iron-1 mg -250 mg combo pack Yes [id number] 1{packe Take 1 Univers vit 8-09 t} Packet by ity of 33-iron-fol 00:00: mouth [place] ic-dha 00 daily. Medical (SELECT-OB Branch + DHA) 29 mg iron-1 mg -250 mg combo pack 2018- Yes [id number] 1{packe Take 1 Univers vit 8-09 t} Packet by ity of 33-iron-fol 00:00: mouth [place] ic-dha 00 daily. Medical (SELECT-OB Branch + DHA) 29 mg iron-1 mg -250 mg combo pack Yes [id number] 1{packe Take 1 Univers vit 8-09 t} Packet by ity of 33-iron-fol 00:00: mouth [place] ic-dha 00 daily. Medical (SELECT-OB Branch + DHA) 29 mg iron-1 mg -250 mg combo pack Yes [id number] 1{packe Take 1 Univers vit 8-09 t} Packet by ity of 33-iron-fol 00:00: mouth [place] ic-dha 00 daily. Medical (SELECT-OB Branch + DHA) 29 mg iron-1 mg -250 mg combo pack Nitrofurant Yes [id number] 100mg Take 1 Univers oin&Nit. 7-22 capsule by ity o f Macrocryst 00:00: mouth [place] 100 mg 00 (two) Medical capsule times Branch daily. Nitrofurant 2018- Yes [id number] 100mg Take 1 Univers oin&Nit. 7-22 capsule by ity o f Macrocryst 00:00: mouth [place] 100 mg 00 (two) Medical capsule times Branch daily. Nitrofurant 2018- Yes [id number] 100mg Take 1 Univers oin&Nit. 7-22 capsule by ity o f Macrocryst 00:[place]: mouth [place] 100 mg 00 (two) Medical capsule times Branch daily. Nitrofurant 2019- No [id number] 100mg Take 1 Univers oin&Nit. 7-22 08-09 capsule by ity of Macrocryst 00:00: 00:00 mouth 2 [place] 100 mg 00 :00 (two) Medical capsule times Branch daily. PNV 67-iron 2018- Yes [id number] 1{each} Take 1 Univers ps-folate 6-14 Each by ity of no.1-dha 00:00: mouth [place] (VITAFOL 00 daily. Medical ULTRA) 29 Branch mg iron- 1 mg-200 mg Cap PNV 67-iron 2018-0 Yes [id number] 1{each} Take 1 Univers ps-folate 6-14 Each by ity of no.1-dha 00:00: mouth [place] (VITAFOL 00 daily. Medical ULTRA) 29 Branch mg iron- 1 mg-200 mg Cap PNV 67-iron 2019- Yes [id number] 1{each} Take 1 Univers ps-folate 6-14 Each by ity of no.1-dha 00:00: mouth [place] (VITAFOL 00 daily. Medical ULTRA) 29 Branch mg iron- 1 mg-200 mg Cap PNV 67-iron 2019- No [id number] 1{each} Take 1 Univers ps-folate 6-14 08- Each by ity of no.1-dha 00:00: 00:00 mouth [place] (VITAFOL 00 :00 daily. Medical ULTRA) 29 Branch mg iron- 1 mg-200 mg Cap Immunizations Ordered Filled Immunization Date Status Comments Sour e Immunization Name Name TDAP (ADACEL) 2019-03-12 Completed University of VACCINE 00:00:00 [facility] TDAP (ADACEL) 2019-03-12 Completed University of VACCINE 00:00:00 [facility] TDAP (ADACEL) 2019-03-12 Completed University of VACCINE 00:00:00 [facility] TDAP (ADACEL) 2019-03-12 Completed University of VACCINE 00:00:00 [facility] TDAP (ADACEL) 2019-03-12 Completed University of VACCINE 00:00:00 [facility] TDAP (ADACEL) 2019-03-12 Completed University of VACCINE 00:00:00 [facility] TDAP (ADACEL) 2019-03-12 Completed University of VACCINE 00:00:00 [facility] Branch TDAP (ADACEL) 2019-03-12 Completed University of VACCINE 00:00:00 [facility] TDAP (ADACEL) 2019-03-12 Completed University of VACCINE 00:00:00 [facility] Branch TDAP (ADACEL) 2019-03-12 Completed University of VACCINE 00:00:00 [facility] Branch TDAP (ADACEL) 2019-03-12 Completed University of VACCINE 00:00:00 [facility] TDAP (ADACEL) 2019-03-12 Completed University of VACCINE 00:00:00 [facility] PPD (TB) 2019-01-19 Completed University of 00:00:00 [facility] PPD (TB) 2019-01-19 Completed University of 00:00:00 [facility] Branch PPD (TB) 2019-01-19 Completed University of 00:00:00 [facility] Branch PPD (TB) 2019-01-19 Completed University of 00:00:00 [facility] Branch PPD (TB) 2019-01-19 Completed University of 00:00:00 [facility] Branch PPD (TB) 2019-01-19 Completed University of 00:00:00 [facility] Branch PPD (TB) 2019-01-19 Completed University of 00:00:00 [facility] Branch PPD (TB) 2019-01-19 Completed University of 00:00:00 [facility] Branch PPD (TB) 2019-01-19 Completed University of 00:00:00 [facility] Branch PPD (TB) 2019-01-19 Completed University of 00:00:00 [facility] Branch PPD (TB) 2019-01-19 Completed University of 00:00:00 [facility] Branch PPD (TB) 2019-01-19 Completed University of 00:00:00 [facility] PPD (TB) 2019-01-19 Completed University of 00:00:00 [facility] PPD (TB) 2019-01-19 Completed University of 00:00:00 [facility] PPD (TB) 2019-01-19 Completed University of 00:00:00 [facility] PPD (TB) 2017-07-15 Completed University of 00:00:00 [facility] PPD (TB) 2017-07-15 Completed University of 00:00:00 [facility] PPD (TB) 2017-07-15 Completed University of 00:00:00 [facility] PPD (TB) 2017-07-15 Completed University of 00:00:00 [facility] Branch PPD (TB) 2017-07-15 Completed University of 00:00:00 [facility] Branch PPD (TB) 2017-07-15 Completed University of 00:00:00 [facility] Branch PPD (TB) 2017-07-15 Completed University of 00:00:00 [facility] Branch PPD (TB) 2017-07-15 Completed University of 00:00:00 [facility] Branch PPD (TB) 2017-07-15 Completed University of 00:00:00 [facility] Branch PPD (TB) 2017-07-15 Completed University of 00:00:00 [facility] Branch PPD (TB) 2017-07-15 Completed University of 00:00:00 [facility] Branch PPD (TB) 2017-07-15 Completed University of 00:00:00 [facility] PPD (TB) 2017-07-15 Completed University of 00:00:00 [facility] PPD (TB) 2017-07-15 Completed University of 00:00:00 [facility] PPD (TB) 2017-07-15 Completed University of 00:00:00 [facility] Influenza Virus 2017-07-08 Completed Universit y of Vaccine Quad IM 3+ 00:00:00 [facility] PPD (TB) 2017-07-08 Completed University of 00:00:00 [facility] Influenza Virus 2017-07-08 Completed Universit y of Vaccine Quad IM 3+ 00:00:00 [facility] PPD (TB) 2017-07-08 Completed University of 00:00:00 [facility] Influenza Virus 2017-07-08 Completed Universit y of Vaccine Quad IM 3+ 00:00:00 [facility] Influenza Virus 2017-07-08 Completed Universit y of Vaccine Quad IM 3+ 00:00:00 [facility] PPD (TB) 2017-07-08 Completed University of 00:00:00 [facility] PPD (TB) 2017-07-08 Completed University of 00:00:00 [facility] Influenza Virus 2017-07-08 Completed Universit y of Vaccine Quad IM 3+ 00:00:00 [facility] PPD (TB) 2017-07-08 Completed University of 00:00:00 [facility] Influenza Virus 2017-07-08 Completed Universit y of Vaccine Quad IM 3+ 00:00:00 [facility] PPD (TB) 2017-07-08 Completed University of 00:00:00 [facility] Influenza Virus 2017-07-08 Completed Universit y of Vaccine Quad IM 3+ 00:00:00 [facility] PPD (TB) 2017-07-08 Completed University of 00:00:00 [facility] Influenza Virus 2017-07-08 Completed Universit y of Vaccine Quad IM 3+ 00:00:00 [facility] PPD (TB) 2017-07-08 Completed University of 00:00:00 [facility] Influenza Virus 2017-07-08 Completed Universit y of Vaccine Quad IM 3+ 00:00:00 [facility] PPD (TB) 2017-07-08 Completed University of 00:00:00 [facility] Influenza Virus 2017-07-08 Completed Universit y of Vaccine Quad IM 3+ 00:00:00 [facility] PPD (TB) 2017-07-08 Completed University of 00:00:00 [facility] Influenza Virus 2017-07-08 Completed Universit y of Vaccine Quad IM 3+ 00:00:00 [facility] PPD (TB) 2017-07-08 Completed University of 00:00:00 [facility] Influenza Virus 2017-07-08 Completed Universit y of Vaccine Quad IM 3+ 00:00:00 [facility] PPD (TB) 2017-07-08 Completed University of 00:00:00 [facility] Influenza Virus 2017-07-08 Completed Universit y of Vaccine Quad IM 3+ 00:00:00 [facility] PPD (TB) 2017-07-08 Completed University of 00:00:00 [facility] Influenza Virus 2017-07-08 Completed Universit y of Vaccine Quad IM 3+ 00:00:00 [facility] PPD (TB) 2017-07-08 Completed University of 00:00:00 [facility] Influenza Virus 2017-07-08 Completed Universit y of Vaccine Quad IM 3+ 00:00:00 [facility] PPD (TB) 2017-07-08 Completed University of 00:00:00 [facility] Vital Signs Vital Name Observation Time Observation Value Comments Source Systolic blood 2019-04-09 18:45:00 111 mm[Hg] Univer sity [facility] Diastolic blood 2019-04-09 18:45:00 63 [facility]Hg[facility] 2019-04-09 18:45:00 81 /min [facility] Body temperature 2019-04-09 18:45:00 36.89 Alana [facility] Respiratory rate 2019-04-09 18:45:00 16 /min [facility] Body height 2019-04-09 18:45:00 157.5 cm [facility] Body weight 2019-04-09 18:45:00 59.648 kg [facility] BMI 2019-04-09 18:45:00 24.05 kg/m2 [facility] Systolic blood 2019-04-09 18:45:00 111 mm[Hg] Univer sity of pressure [facility] Diastolic blood 2019-04-09 18:45:00 63 mm[Hg] Unive rsity of pressure [place] [facility] Heart rate 2019-04-09 18:45:00 81 /min Universi ty [facility] [place] [facility] Body temperature 2019-04-09 18:45:00 36.89 Alana Univ ersity [facility] [place] [facility] Respiratory rate 2019-04-09 18:45:00 16 /min Univ ersity [facility] [place] [facility] Body height 2019-04-09 18:45:00 157.5 cm Universi ty [facility] [place] [facility] Body weight 2019-04-09 18:45:00 59.648 kg Universi ty of [place] [facility] BMI 2019-04-09 18:45:00 24.05 kg/m2 Universi ty [facility] [place] [facility] Heart rate 2019-04-02 00:45:00 91 /min Universi ty [facility] [place] [facility] Oxygen saturation in 2019-04-02 00:30:00 100 /min University of Arterial blood by [place] [facility] Pulse oximetry Branch Systolic blood 2019-04-01 23:46:00 108 mm[Hg] Univer sity of pressure [place] [facility] Diastolic blood 2019-04-01 23:46:00 68 mm[Hg] Unive rsity of pressure [place] [facility] Body temperature 2019-04-01 21:57:00 36.67 Alana Univ ersity of [place] [facility] Respiratory rate 2019-04-01 21:57:00 16 /min Univ ersity of [place] [facility] Heart rate 2019-04-02 00:45:00 91 /min Universi ty [facility] [place] [facility] Oxygen saturation in 2019-04-02 00:30:00 100 /min University of Arterial blood by [place] [facility]ka Pulse oximetry Branch Systolic blood 2019-04-01 23:46:00 108 mm[Hg] Univer sity of pressure [place] [facility] Diastolic blood 2019-04-01 23:46:00 68 mm[Hg] Unive rsity of pressure [place] [facility] Body temperature 2019-04-01 21:57:00 36.67 Alana Univ ersity [facility] [place] [facility] Respiratory rate 2019-04-01 21:57:00 16 /min Univ ersity of [place] [facility] Systolic blood 2019-03-26 18:20:00 118 mm[Hg] Univer sity of pressure [place] [facility] Diastolic blood 2019-03-26 18:20:00 68 mm[Hg] Unive rsity of pressure [place] [facility] Heart rate 2019-03-26 18:20:00 62 /min Universi ty [facility] [place] [facility] Body temperature 2019-03-26 18:20:00 36.72 Alana Univ ersity [facility] [place] [facility] Respiratory rate 2019-03-26 18:20:00 16 /min Univ ersity [facility] [place] [facility] Body height 2019-03-26 18:20:00 157.5 cm Universi ty [facility] [place] [facility] Body weight 2019-03-26 18:20:00 58.514 kg Universi ty [facility] [place] [facility] BMI 2019-03-26 18:20:00 23.59 kg/m2 Universi ty [facility] [place] [facility] Systolic blood 2019-03-26 18:20:00 118 mm[Hg] Univer sity of pressure [place] [facility] Diastolic blood 2019-03-26 18:20:00 68 mm[Hg] Unive rsity of pressure [place] [facility] Heart rate 2019-03-26 18:20:00 62 /min Universi ty [facility] [place] [facility] Body temperature 2019-03-26 18:20:00 36.72 Alana Univ ersity [facility] [place] [facility] Respiratory rate 2019-03-26 18:20:00 16 /min Univ ersity of [place] [facility] Body height 2019-03-26 18:20:00 157.5 cm Universi ty [facility] [place] [facility] Body weight 2019-03-26 18:20:00 58.514 kg Universi ty [facility] [place] [facility] BMI 2019-03-26 18:20:00 23.59 kg/m2 [facility]i [facility] [place] [facility] Systolic blood 2019-03-12 18:28:00 109 mm[Hg] Univer sity of pressure [place] [facility] Diastolic blood 2019-03-12 18:28:00 68 mm[Hg] Unive rsity of pressure [place] [facility] Heart rate 2019-03-12 18:28:00 98 /min Universi ty [facility] [place] [facility] Body temperature 2019-03-12 18:28:00 36.72 Alana Univ ers[facility] [place] [facility] Respiratory rate 2019-03-12 18:28:00 20 /min Univ ersity [facility] [place] [facility] Body height 2019-03-12 18:28:00 157.5 cm [facility]i ty [facility] [place] [facility] Body weight 2019-03-12 18:28:00 57.323 kg [facility]i [facility] [place] [facility] BMI 2019-03-12 18:28:00 23.11 kg/m2 [facility] Procedures Procedure Date / Time Performing Clinician Source Performed POCT URINALYSIS 2019-04-09 18:46:00 Lucy Razo [facility] NON-STRESS TEST 2019-04-02 00:38:50 Olivia Fernando [facility] ADC CLC OR [facility] ONLY - 2019-04-01 22:38:00 Olivia Fernando [facility] NOTICE OF PRIVACY 2019-04-01 21:37:21 Doctor Unassigned, No [facility] ASSIGNMENT OF BENEFITS 2019-04-01 21:36:29 Doctor Unassigned, No [facility] POCT URINALYSIS 2019-03-26 18:22:00 Lucy Razo [facility] SCANNED LAB RESULTS 2019-03-21 05:01:00 [facility] 2019-03-12 18:36:28 Kamini Álvarez [facility] POCT URINALYSIS 2019-03-12 18:31:00 Lucy Razo [facility] STERILIZATION CONSENT 2019-03-12 05:01:00 Doctor Unassigned, No [facility] GENETICS COUNSELING NOTE 2019-02-24 05:01:00 Doctor Unassigned, No [facility] Encounters Start End Encounter Admission Attending Care Care Encounter Source Date/Time Date/Time Type Type Clinicians Facility Department ID 2019-04-09 2019-04-09 Routine Henri DERAFAELA [id number] [facility] 13:26:49 13:53:34 Kamini Kee BALL TRUING MACHINE OPERATOR 350.1.13.10 i ty of Visit REGIONAL 4.2.7.2.686 [place] MATERNAL [id number] Med ical & CHILD [address] [place] [address] 2019-04-09 2019-04-09 Routine Henri DERAFAELA [id number] 13:26:49 13:53:34 Kamini Kee BALL TRUING MACHINE OPERATOR 350.1.13.10 Visit REGIONAL 4.2.7.2.686 MATERNAL [id number] & CHILD 107 [facility] 2019-04-01 2019-04-01 [facility] Olivia Fernando [facility] [id number] [facility] 16:38:02 19:54:00 Encounter Eyal Nelson 350.1.13.10 ity [place] 4[place]2.7.2.686 [place] [id number] [address] 2019-04-01 2019-04-01 [facility] Olivia Fernando [facility] [id number] 16:38:02 19:54:00 Encounter Eyal Nelson 350.1.13.10 [place] 4.2.7.2.686 [place] [id number] [facility] 2019-04-01 2019-04-01 Orders Doctor FRANCES [id number] Univers 00:00:00 00:00:00 Only Unassigned, AMBAR 350.1.13.10 ity of [place] [facility] 4.2.7.2.686 [place] [id number] [facility] [address] [place] 2019-04-01 2019-04-01 Orders Doctor FRANCES [id number] 00:00:00 00:00:00 Only Unassigned, AMBAR 350.1.13.10 [place] [facility] 4.2.7.2.686 [id number] [facility] 2019-03-26 2019-03-26 [facility] [id number] [facility] 13:10:26 13:34:57 Kamini Kee BALL TRUING MACHINE OPERATOR 350.1.13.10 i ty of Visit [facility] 4.2.7.2.686 [place] MATERNAL [id number] Med ical & CHILD 107 [facility] 2019-03-26 2019-03-26 [facility] [id number] 13:10:26 13:34:57 Kamini Kee BALL TRUING MACHINE OPERATOR 350.1.13.10 Visit [facility] 4.2.7.2.686 MATERNAL [id number] & CHILD 107 [facility] 2019-03-22 2019-03-22 Telephone JE Brooke [id number] Univers 00:00:00 00:00:00 [place] HEALTH 350.1.13.10 ity of [place] 4[place].2.[place] [id number] [facility] [address] [place] 2019-03-21 2019-03-21 Orders Doctor FRANCES [id number] Univers 00:00:00 00:00:00 Only Unassigned, AMBAR 350.1.13.10 ity of [place] [facility] 4.2.7.2.686 [place] [id number] [facility] 009 Branch 2019-03-17 2019-03-17 Case Edwardo, [facility] [id number] Univers 00:00:00 00:00:00 Management Galina [place] HEALTH 350.1.13.10 ity of CL[place] 4[place].2.[place] [id number] [facility] [address] [place] 2019-03-17 2019-03-17 Case Brooke, [facility] [id number] 00:00:00 00:00:00 Management [place] HEALTH 350.1.13.10 CLINICS 4.2.7.2.686 [id number] [facility] 2019-03-15 2019-03-15 Telephone Henri DERAFAELA [id number] Univers 00:00:00 00:00:00 Kamini Kee BALL TRUING MACHINE OPERATOR 350.1.13.10 it y of [facility] 4.2.7.2.686 [place] MATERNAL [id number] Med ical & CHILD [address] [place] [address] 2019-03-12 2019-03-12 Receiving Manager Lab, [facility] 1.2.840. [id number] Univers 14:05:53 14:06:34 Visit Kamini Álvarez BALL TRUING MACHINE OPERATOR 350.1.13.10 ity of REGIONAL 4.2.7.2.686 [place] MATERNAL [id number] Med ical & CHILD [address] [place] [address] 2019-03-12 2019-03-12 Routine Henri [facility] [id number] Univers 13:22:41 14:03:26 Kamini N BALL TRUING MACHINE OPERATOR [id number] i ty of Visit [facility] [id number] [place] as MATERNAL [phone] Med ical & CHILD 107 [facility] 2019-03-12 2019-03-12 Orders Doctor FRANCES [id number] Univers 00:00:00 00:00:00 Only Unassigned, AMBAR [id number] ity of [place] [facility] 4.2.7.2.686 [place] as [phone] [address] 2019-03-12 2019-03-12 Orders Doctor FRANCES [id number] 00:00:00 00:00:00 Only Unassigned, AMBAR [id number] [place] [facility] 4.2.7.2.686 [id number] [id number] 2019-03-09 2019-03-09 Case Edwardo, [facility] [id number] [id number] Univers 00:00:00 00:00:00 Management [place] [employer] [id number] ity of [place] [phone] [address] 2019-02-24 2019-02-24 Office [facility] [id number] [facility] 10:25:40 12:32:56 Visit [place] [employer] [facility] [id number] ity [place] [phone] [address] 2019-02-24 2019-02-24 Orders Doctor FRANCES 1.2.840.114 [id number] Univers 00:00:00 00:00:00 Only Unassigned, AMBAR 350.1.13.10 ity of [place] [facility] 4.2.7.2.686 [place] as [phone] [address] Results Test Description Test Time Test Comments Results Result Comments Source POCT URINALYSIS W SPECIFIC GRAVITY 2019-04-09 18:46:00 Test Item Value Reference Range Interpretation Comme nts POCT U SP GRAV (test code = 3255) . 1.005-1.025 POCT PH U (test code = 3254) . 5-8 POCT U LEUK EST (test code = 3263) . Negative - Negative POCT U NIT (test code = 3262) . Negative - Negative POCT U PROT (test code = 3259) Trace Negative - Negative POCT U GLU (test code = 3256) Neg Negative - Negative POCT U KETONE (test code = 3258) . Negative - Negative POCT U UROBILI (test code = 3260) . 0.2-1 POCT U BILI (test code = 3261) . Negative - Negative POCT U BLD (test code = 3257) . Negative - Negative POCT U COLOR (test code = 3266) POCT U APPEAR (test code = 3267) [facility] [id number] 00:39:56 Reactive and reassuringOne contraction with mild irritability on [place] Oliviachandrika Fernando MD?04/01/2019?7:39 [facility] - WET [id number] 23:17:00 Test Item Value Reference Range Interpretation Comments Wet Prep (test code No Trichomonas vaginalis = [id number]) present [facility] URINALYSIS W SPECIFIC [id number] 18:23:00 Test Item Value Reference Range Interpretation Comments POCT U SP GRAV (test code = 3255) . 1.005-1.025 POCT PH U (test code = 3254) . 5-8 POCT U LEUK EST (test code = 3263) . Negative - Negative POCT U NIT (test code = 3262) . Negative - Negative POCT U PROT (test code = 3259) neg Negative - Negative POCT U GLU (test code = 3256) neg Negative - Negative POCT U KETONE (test code = 3258) . Negative - Negative POCT U UROBILI (test code = 3260) . 0.2-1 POCT U BILI (test code = 3261) . Negative - Negative POCT U BLD (test code = 3257) . Negative - Negative POCT U COLOR (test code = 3266) POCT U APPEAR (test code = 3267) [facility] URINALYSIS W SPECIFIC [id number] 18:23:00 Test Item Value Reference Range Interpretation Comments POCT U SP GRAV (test code = 3255) . 1.005-1.025 POCT PH U (test code = 3254) . 5-8 POCT U LEUK EST (test code = 3263) . Negative - Negative POCT U NIT (test code = 3262) . Negative - Negative POCT U PROT (test code = 3259) neg Negative - Negative POCT U GLU (test code = 3256) neg Negative - Negative POCT U KETONE (test code = 3258) . Negative - Negative POCT U UROBILI (test code = 3260) . 0.2-1 POCT U BILI (test code = 3261) . Negative - Negative POCT U BLD (test code = 3257) . Negative - Negative POCT U COLOR (test code = 3266) POCT U APPEAR (test code = 3267) [facility] [id number] 18:31:00 Test Item Value Reference Range Interpretation Comments POCT U SP GRAV (test code = 3255) . 1.005-1.025 POCT PH U (test code = 3254) . 5-8 POCT U LEUK EST (test code = 3263) . Negative - Negative POCT U NIT (test code = 3262) . Negative - Negative POCT U PROT (test code = 3259) neg Negative - Negative POCT U GLU (test code = 3256) neg Negative - Negative POCT U KETONE (test code = 3258) . Negative - Negative POCT U UROBILI (test code = 3260) . 0.2-1 POCT U BILI (test code = 3261) . Negative - Negative POCT U BLD (test code = 3257) . Negative - Negative POCT U COLOR (test code = 3266) POCT U APPEAR (test code = 3267) [facility]
[2021-07-05] MEDS ORDERED: METOCLOPRAMIDE 10 MG/2mL INJ ONE (15:35)
[2021-07-05] MEDS ORDERED: NA CHLORIDE 0.9% 1,000 ML ONE (15:36)
[2021-07-05] MEDS ORDERED: ACETAMINOPHEN 325 MG TABLET ONE (15:36)
[2021-07-05 15:46] LABS: Absolute Lymphocytes (CBC) 0.9 K/uL (0.7-4.9); Basophils % 0.5 % (0-1.3); Hematocrit 38.2 % (36.0-45.0); Lymphocytes % 12.1 % (15.3-44.8); RBC Red Blood Cell Count 4.66 M/uL (3.86-4.86)
[2021-07-05 16:05] LABS: Potassium 3.5 mmol/L (3.5-5.1)
[2021-07-05 16:27] LABS: Urine Blood Negative (Negative); Urine Glucose Negative (Negative); Urine Protein Trace (Negative); Urine Specific Gravity 1.025 (1.005-1.030); Urine pH 6.5 (5.0-7.0)
[2021-07-05 16:29] LABS: SARS-COV-2 RT PCR NEGATIVE (NEGATIVE)
[2021-07-05 16:37] LABS: Urine Specific Gravity/Preg 1.025 (1.005-1.030)
--- NOTE | 2021-07-05 17:03 | ER ---
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 Coronavirus screen: Vaccine status: Patient reports receiving the 2nd dose of the covid vaccine. Pfizer fever, headache, muscle pain, runny nose, Client presents with at least one sign or symptom that may indicate coronavirus-19. Standard/surgical mask placed on the client. Ebola Screen: No symptoms or risks identified at this time. Initial Sepsis Screen: Does the patient meet any 2 criteria? No. Patient's initial sepsis screen is negative. Does the patient have a suspected source of infection? No. Patient's initial sepsis screen is negative. Risk Assessment: Do you want to hurt yourself or someone else? Patient reports no desire to harm self or others. Onset of symptoms was July 04, 2021. Care prior to arrival: None. 14:43 Method Of Arrival: Ambulatory [facility] 14:43 Acuity: JULIETTE 3 jl7 Triage Assessment: 14:52 Headache History: The patient has had previous headaches and this one is similar to 7 previous episodes. General: Appears in no apparent distress. uncomfortable, Behavior is calm, cooperative, appropriate for age. Pain: Complains of pain in REAL Pain currently is 5 out of 10 on a pain scale. Pain began 1 day ago. Is continuous, Also complains of no other associated symptoms. Neuro: Level of Consciousness is awake, alert, obeys commands, Oriented to person, place, time, situation. Cardiovascular: Patient's skin is warm and dry. Respiratory: Airway is patent Respiratory effort is even, unlabored, Respiratory pattern is regular, symmetrical. Derm: Skin is pink, warm \T\ dry. 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 - Social history:: Smoking status: Patient denies any tobacco usage or history of. Screenin:43 Abuse screen: Denies threats or abuse. Denies injuries from another. Nutritional iw screening: No deficits noted. Tuberculosis screening: No symptoms or risk factors identified. Fall Risk None identified. Assessment: 15:43 Reassessment: Patient appears in no apparent distress at this time. Patient and/or iw family updated on plan of care and expected duration. Pain level reassessed. Patient is alert, oriented x 3, equal unlabored respirations, skin warm/dry/pink. General: Appears in no apparent distress. Pain: Complains of pain in head. Neuro: Level of Consciousness is awake, alert, obeys commands, Oriented to person, place, time, situation, Moves all extremities. Full function. Respiratory: Respiratory effort is even, unlabored, Respiratory pattern is regular, symmetrical. Derm: Skin is intact, is healthy with good turgor. Musculoskeletal: Range of motion: intact in all extremities. 16:47 Reassessment: Patient appears in no apparent distress at this time. Patient and/or iw family updated on plan of care and expected duration. Pain level reassessed. Patient is alert, oriented x 3, equal unlabored respirations, skin warm/dry/pink. 16:53 Reassessment: Patient appears in no apparent distress at this time. Patient and/or iw family updated on plan of care and expected duration. Pain level reassessed. Patient denies pain at this time. Patient states feeling better. Vital Signs: 14:43 BP 109 / 81; Pulse 119; Resp 17; Temp 98.9; Pulse Ox 100% ; Weight 47.63 kg; Height 5 jl7 ft. 3 in. (160.02 cm); Pain 5/10; 16:53 BP 118 / 84; Pulse 89; Resp 16; Pulse Ox 99% on R/A; iw 14:43 Body Mass Index 18.60 (47.63 kg, 160.02 cm) 7 ED Course: 13:57 Patient arrived in ED. am2 14:52 Triage completed. 7 14:52 Arm band placed on right wrist. Patient placed in waiting room, Patient notified of 7 wait time. 14:56 Mickail, Rodrigo, PA is PHCP. [facility] 14:56 Venkat Brice MD is Attending Physician. [facility] 15:12 Yumi Álvarez, RN is Primary Nurse. iw 15:35 Initial lab(s) drawn, by me, sent to lab. Inserted saline lock: 22 gauge in right kj1 antecubital area, using aseptic technique. Blood collected. 15:43 Patient has correct armband on for positive identification. iw 17:21 No provider procedures requiring assistance completed. IV discontinued, intact, iw bleeding controlled, No redness/swelling at site. Pressure dressing applied. Administered Medications: 15:42 Drug: Reglan (metoCLOPramide) 20 mg Route: IVP; Site: left antecubital; iw 16:00 Follow up: Response: No adverse reaction iw 15:42 Drug: Acetaminophen 650 mg Route: PO; iw 16:00 Follow up: Response: No adverse reaction iw 15:43 Drug: NS 0.9% 1000 ml Route: IV; Rate: 1000 ml; Site: right antecubital; iw 16:00 Follow up: IV Status: Completed infusion iw Outcome: 17:02 Discharge ordered by . [facility] 17:21 Discharged to home ambulatory. iw 17:21 Condition: good 17:21 Discharge instructions given to patient, Instructed on discharge instructions, follow up and referral plans. Demonstrated understanding of instructions, follow-up care. 17:22 Patient left the ED. iw Signatures: Rodrigo Guan PA PA Yumi Arteaga, RN STEVE iw Will Spann RN RN jl7 Arleth Pires am2 Ladan Sharma kj1
--- NOTE | 2021-07-05 17:03 | EDPHYS ---
Physician Documentation [facility] Name: Noa Yoon Age: 26 yrs Sex: Female : 1995 Arrival Date: 07/05/2021 Time: 13:57 Bed 9 Private MD: ED Physician Venkat Brice HPI: 07/05 15:08 This 26 yrs old Female presents to ER via Ambulatory with complaints of jmm Headache, bodyaches, Runny Nose. 15:08 The patient complains of pain to the top of head. Onset: The symptoms/episode jmm began/occurred gradually, today. Associated signs and symptoms: Pertinent positives: Back pain, Pertinent negatives: neck stiffness. This is a 26-year-old female with no known chronic medical conditions presents emerged department with complaints of lower back pain, chills, headache. Patient denies vomiting. Patient states having some congestion. Denies shortness of breath or cough. Denies sore throat. 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 - Social history:: Smoking status: Patient denies any tobacco usage or history of. ROS: 15:08 Cardiovascular: Negative for chest pain, palpitations, and edema, Respiratory: Negative jmm for shortness of breath, cough, wheezing, and pleuritic chest pain. 15:08 Constitutional: Positive for chills. 15:08 Back: Positive for pain at rest, pain with movement. 15:08 Neuro: Positive for headache. 15:08 All other systems are negative. Exam: 15:08 Head/Face: atraumatic. Eyes: EOMI, no conjunctival erythema appreciated jmm 15:08 Chest/axilla: Normal chest wall appearance and motion. Cardiovascular: Regular rate and rhythm. No edema appreciated Respiratory: Normal respirations, no respiratory distress appreciated Abdomen/GI: Non distended, soft Back: Normal ROM Skin: General appearance color normal MS/ Extremity: Moves all extremities, no obvious deformities appreciated, no edema noted to the lower extremities Neuro: Awake and alert, normal gait Psych: Behavior is normal, Mood is normal, Patient is cooperative and pleasant 15:08 Constitutional: The patient appears alert, awake, uncomfortable. 15:08 ENT: Posterior pharynx: erythema, that is mild. Vital Signs: 14:43 BP 109 / 81; Pulse 119; Resp 17; Temp 98.9; Pulse Ox 100% ; Weight 47.63 kg; Height 5 jl7 ft. 3 in. (160.02 cm); Pain 5/10; 16:53 BP 118 / 84; Pulse 89; Resp 16; Pulse Ox 99% on R/A; iw 14:43 Body Mass Index 18.60 (47.63 kg, 160.02 cm) jl7 MDM: 15:08 Patient medically screened. [facility] 17:01 Data reviewed: vital signs, nurses notes. Counseling: I had a detailed discussion with jhony the patient and/or guardian regarding: the historical points, exam findings, and any diagnostic results supporting the discharge/admit diagnosis, lab results, the need for outpatient follow up, to return to the emergency department if symptoms worsen or persist or if there are any questions or concerns that arise at home. ED course: Patient states that she feels much better after IV fluids and IV Reglan. UA and labs were unremarkable. Patient's neck is supple, patient is nontoxic in appearance I do not currently suspect meningitis. Patient advised to follow with her PCP and otherwise given strict return precautions. Patient understood agrees plan of care.. 07/05 15:11 Order name: Strep; Complete Time: 15:59 [facility] 07/05 15:13 Order name: [place] Screen Profile; Complete Time: 16:16 [facility] 07/05 15:13 Order name: CBC with Diff; Complete Time: 15:53 [facility] 07/05 15:13 Order name: BMP; Complete Time: 16:07 [facility] 07/05 15:11 Order name: Urine Dipstick-Ancillary (obtain specimen); Complete Time: 16:38 [facility] 07/05 15:30 Order name: COVID-19/FLU A+B; Complete Time: 16:34 [facility] 07/05 15:56 Order name: Throat Culture [facility] 07/05 16:27 Order name: Urine Dipstick-Ancillary; Complete Time: 16:34 [facility] 07/05 16:28 Order name: Urine --Ancillary (enter results); Complete Time: 16:47 em1 07/05 15:11 Order name: Urine Test (obtain specimen); Complete Time: 16:38 jmm 07/05 15:11 Order name: Saline Lock; Complete Time: 15:41 jm Administered Medications: 15:42 Drug: Reglan (metoCLOPramide) 20 mg Route: IVP; Site: left antecubital; iw 16:00 Follow up: Response: No adverse reaction iw 15:42 Drug: Acetaminophen 650 mg Route: PO; iw 16:00 Follow up: Response: No adverse reaction iw 15:43 Drug: NS 0.9% 1000 ml Route: IV; Rate: 1000 ml; Site: right antecubital; iw 16:00 Follow up: IV Status: Completed infusion iw Disposition: 17:34 Co-signature as Attending Physician, Venkat Brice MD I agree with the assessment and kdr plan of care. Disposition Summary: 07/05/21 17:02 Discharge Ordered Location: Home jm Condition: Stable jm Diagnosis - Low back pain jmm - Headache jm Followup: jmm - With: Private Physician - When: 2 - 3 days - Reason: Recheck today's complaints, Continuance of care, Re-evaluation by your physician Discharge Instructions: - Discharge Summary Sheet jmm - Acute Back Pain, Adult jmm - General Headache Without Cause jm Forms: - Medication Reconciliation Form jmm - Thank You Letter jmm - Antibiotic Education jmm - Prescription Opioid Use [facility] Signatures: Dispatcher [employer] EDMS Venkat Brice MD MD [facility] Rodrigo Guan PA PA [facility] Yumi Álvarez, RN RN iw Will Spann RN RN jl7 Corrections: (The following items were deleted from the chart) 15:29 15:11 Influenza Screen (A \T\ B)+BA.LAB.BRZ ordered. EDMS EDMS 15:30 15:11 SARS-COV-2 RT PCR+MOL.LAB.BRZ ordered. EDMS EDMS
[2021-07-05 17:54] VITALS: TEMP 98.9
[2021-07-05 17:56] VITALS: BP 118/84; O2SAT 99
== END 2021-07-05 17:22 | disposition home or self-care (01) ==
LOC: ER 13:55
DX: R51.9 Headache, unspecified (principal); M54.50 Low back pain, unspecified; Z20.822 Contact with and (suspected) exposure to COVID-19
CPT/HCPCS: 87070; 85025; 80048; 36415; 86308; 81025; 87081; 81003; 0240U; 96374; 99283; J2765; J7030

== ENCOUNTER 2021-08-31 16:40 | Emergency (ER) | payer OTHER ==
--- OUTSIDE RECORDS SUMMARY | 2021-08-31 16:43 | XMS REPORT | Continuity of Care Document ---
:1995 Author Organization [facility] t Address [address] [place] [address] Care Team Providers Name Role Phone Henri [...] ligation 8-09 ity of status status 00:00: [place] [address] Medical Branch Abnormal Abnormal Disease Active Overview: Un t[place] quad quad 7-15 OSB 1:15, ity of screen screen 00:00: may need [place] [address] recalcula Medical tion Branch Susceptibl Susceptibl Disease [...] Stop Date Quantity Comments Source ASSERTION 2018-08-25 [facility] 00:00:00 Medical Branch Alcohol intake [facility] [place] [facility] Smoking Status Start Date Stop Date Source Never smoker [facility] Medications Ordered Filled Start Stop Current Ordering Indication Dosage Frequency Signature Comments Components Source Medication Medication Date Date Medication? Clinician (SIG) Name Name metroNIDAZO 2019- No [id number] 500mg Take 2 Univers LE 250 mg 8-29 -06 tablets by ity of tablet 00:00: 04:59 mouth 2 [place] 00 :00 (two) Medical times Branch daily for 7 days. Iron, Cbn & 2019-0 Yes 1{tbl} Take 1 Univers Gluc-FA-B12 8-12 tablet by ity of -C-DSS 00:00: mouth [place] (FERRALET 00 daily. [place] [address] Branch DUAL-IRON DELIVERY) 90-1-12-50 mg-mg-mcg-m g per tablet Iron, Cbn & 2019-0 Yes [id number] 1{tbl} Take 1 Univers Gluc-FA-B12 8-12 tablet by ity of -C-DSS 00:00: mouth [place] (FERRALET 00 daily. [place] [address] Branch DUAL-IRON DELIVERY) 90-1-12-50 mg-mg-mcg-m g per tablet Iron, Cbn & 2019-0 Yes 1{tbl} Take 1 Univers Gluc-FA-B12 8-12 tablet by ity of -C-DSS 00:00: mouth [place] (FERRALET 00 daily. [facility] 90 Branch DUAL-IRON DELIVERY) 90-1-12-50 mg-mg-mcg-m g per tablet Iron, Cbn & 2019-0 Yes [id number] 1{tbl} Take 1 Univers Gluc-FA-B12 8-12 tablet by ity of -C-DSS 00:00: mouth [place] (FERRALET 00 daily. Medical Branch DUAL-IRON DELIVERY) 90-1-12-50 mg-mg-mcg-m g per tablet Iron, Cbn & 2019-0 Yes [id number] 1{tbl} Take 1 Univers Gluc-FA-B12 8-12 tablet by ity of -C-DSS 00:00: mouth [place] (FERRALET 00 daily. Medical Branch DUAL-IRON DELIVERY) 90-1-12-50 mg-mg-mcg-m g per tablet Iron, Cbn & 2019-0 Yes [id number] 1{tbl} Take 1 Univers Gluc-FA-B12 8-12 tablet by ity of -C-DSS 00:00: mouth [place] (FERRALET [address] DUAL-IRON DELIVERY) 90-1-12-50 mg-mg-mcg-m g per tablet Iron, Cbn & 2019-0 Yes [id number] 1{tbl} Take 1 Univers Gluc-FA-B12 8-12 tablet by ity of -C-DSS 00:00: mouth [place] (FERRALET 00 daily. [place] [address] Branch DUAL-IRON DELIVERY) 90-1-12-50 mg-mg-mcg-m g per tablet Iron, Cbn & 2019-0 Yes [id number] 1{tbl} Take 1 Univers Gluc-FA-B12 8-12 tablet by ity of -C-DSS 00:00: mouth [place] (FERRALET 00 daily. [place] [address] Branch DUAL-IRON DELIVERY) 90-1-12-50 mg-mg-mcg-m g per tablet Iron, Cbn & 2019-0 Yes [id number] 1{tbl} Take 1 Univers Gluc-FA-B12 8-12 tablet by ity of -C-DSS 00:00: mouth [place] (FERRALET 00 daily. [place] [address] Branch DUAL-IRON DELIVERY) 90-1-12-50 mg-mg-mcg-m g per tablet 2019-0 Yes [id number] 1{packe Take 1 Univers vit 8-09 t} Packet by ity of 33-iron-fol 00:00: mouth [place] ic-dha 00 daily. Medical (SELECT-OB Branch + DHA) 29 mg iron-1 mg -250 mg combo pack Yes [id number] 1{packe Take 1 Univers vit 8-09 t} Packet by ity of 33-iron-fol 00:00: mouth [place] ic-dha daily. Medical (SELECT-OB Branch + DHA) 29 mg iron-1 mg -250 mg combo pack Yes [id number] 1{packe Take 1 Univers vit 8-09 t} Packet by ity of 33-iron-fol 00:00: mouth [place] ic-dha daily. Medical (SELECT-OB Branch + DHA) 29 mg iron-1 mg -250 mg combo pack Yes [id number] 1{packe Take 1 Univers vit 8-09 t} Packet by ity of 33-iron-fol 00:00: mouth [place] ic-dha daily. Medical (SELECT-OB Branch + DHA) 29 mg iron-1 mg -250 mg combo pack Yes [id number] 1{packe Take 1 Univers vit 8-09 t} Packet by ity of 33-iron-fol 00:00: mouth [place] ic-dha daily. Medical (SELECT-OB Branch + DHA) 29 mg iron-1 mg -250 mg combo pack Yes [id number] 1{packe Take 1 Univers vit 8-09 t} Packet by ity of 33-iron-fol 00:00: mouth [place] ic-dha daily. Medical (SELECT-OB Branch + DHA) 29 mg iron-1 mg -250 mg combo pack Yes [id number] 1{packe Take 1 Univers vit 8-09 t} Packet by ity of 33-iron-fol 00:00: mouth [place] ic-dha daily. Medical (SELECT-OB Branch + DHA) 29 mg iron-1 mg -250 mg combo pack Yes [id number] 1{packe Take 1 Univers vit 8-09 t} Packet by ity of 33-iron-fol 00:00: mouth [place] ic-dha 00 daily. Medical (SELECT-OB Branch + DHA) 29 mg iron-1 mg -250 mg combo pack Yes [id number] 1{packe Take 1 Univers vit 8-09 t} Packet by ity of 33-iron-fol 00:00: mouth [place] ic-dha 00 daily. Medical (SELECT-OB Branch + DHA) 29 mg iron-1 mg -250 mg combo pack 2018- Yes [id number] 1{packe Take 1 Univers vit 8-09 t} Packet by ity of 33-iron-fol 00:00: mouth [place] ic-dha 00 daily. Medical (SELECT-OB Branch + DHA) 29 mg iron-1 mg -250 mg combo pack Yes [id number] 1{packe Take 1 Univers vit 8-09 t} Packet by ity of 33-iron-fol 00:00: mouth [place] ic-dha 00 daily. Medical (SELECT-OB Branch + DHA) 29 mg iron-1 mg -250 mg combo pack Yes [id number] 1{packe Take 1 Univers vit 8-09 t} Packet by ity of 33-iron-fol 00:00: mouth [place] ic-dha 00 daily. Medical (SELECT-OB Branch + DHA) 29 mg iron-1 mg -250 mg combo pack Nitrofurant Yes [id number] 100mg Take 1 Univers oin&Nit. 7-22 capsule by ity o f [place]: mouth 2 [place] 100 mg 00 (two) Medical capsule times Branch daily. Nitrofurant 2018- Yes [id number] 100mg Take 1 Univers oin&Nit. 7-22 capsule by ity o f [place] 00:00: mouth [place] 100 mg 00 (two) Medical capsule times Branch daily. Nitrofurant 2018- Yes [id number] 100mg Take 1 Univers oin&Nit. 7-22 capsule by ity o f [place] 00:00: mouth [place] 100 mg 00 (two) Medical capsule times Branch daily. Nitrofurant 2019- No [id number] 100mg Take 1 Univers oin&Nit. 7-22 08-09 capsule by ity of Macrocryst 00:00: 00:00 mouth 2 [place] 100 mg 00 :00 (two) Medical capsule times Branch daily. PNV 67-iron 2018- Yes [id number] 1{each} Take 1 Univers ps-folate 6-14 Each by ity of no.1-dha 00:00: mouth [place] (VITAFOL 00 daily. Medical ULTRA) 29 Branch mg iron- 1 mg-200 mg Cap PNV 67-iron 2018-0 Yes [id number] 1{each} Take 1 Univers ps-folate 6-14 Each by ity of no.1-dha 00:00: mouth [place] (VITAFOL 00 daily. Medical ULTRA) 29 Branch mg iron- 1 mg-200 mg Cap PNV 67-iron 2019- Yes [id number] 1{each} Take 1 Univers ps-folate 6-14 Each by ity of no.1-dha 00:00: mouth [place] (VITAFOL 00 daily. Medical ULTRA) 29 Branch mg iron- 1 mg-200 mg Cap PNV 67-iron 2019- No [id number] 1{each} Take 1 Univers ps-folate 6-14 08- Each by ity of no.1-dha 00:00: 00:00 mouth [place] (VITAFOL 00 :00 daily. Medical ULTRA) 29 Branch mg iron- 1 mg-200 mg Cap Immunizations Ordered Filled Immunization Date Status Comments Sour e Immunization Name Name TDAP (ADACEL) 2019-03-12 Completed University of VACCINE 00:00:00 [facility] TDAP (ADACEL) 2019-03-12 Completed University of VACCINE 00:00:00 [facility] TDAP (ADACEL) 2019-03-12 Completed University of VACCINE 00:00:00 [facility] TDAP (ADACEL) 2019-03-12 Completed University of VACCINE 00:00:00 [facility] TDAP (ADACEL) 2019-03-12 Completed University of VACCINE 00:00:00 [facility] TDAP (ADACEL) 2019-03-12 Completed University of VACCINE 00:00:00 [facility] TDAP (ADACEL) 2019-03-12 Completed University of VACCINE 00:00:00 [facility] TDAP (ADACEL) 2019-03-12 Completed University of VACCINE 00:00:00 [facility] TDAP (ADACEL) 2019-03-12 Completed University of VACCINE 00:00:00 [facility] TDAP (ADACEL) 2019-03-12 Completed University of VACCINE 00:00:00 [facility] TDAP (ADACEL) 2019-03-12 Completed University of VACCINE 00:00:00 [facility] TDAP (ADACEL) 2019-03-12 Completed University of VACCINE 00:00:00 [facility] PPD (TB) 2019-01-19 Completed University of 00:00:00 [facility] PPD (TB) 2019-01-19 Completed University of 00:00:00 [facility] PPD (TB) 2019-01-19 Completed University of 00:00:00 [facility] PPD (TB) 2019-01-19 Completed University of 00:00:00 [facility] PPD (TB) 2019-01-19 Completed University of 00:00:00 [facility] PPD (TB) 2019-01-19 Completed University of 00:00:00 [facility] PPD (TB) 2019-01-19 Completed University of 00:00:00 [facility] PPD (TB) 2019-01-19 Completed University of 00:00:00 [facility] PPD (TB) 2019-01-19 Completed University of 00:00:00 [facility] PPD (TB) 2019-01-19 Completed University of 00:00:00 [facility] PPD (TB) 2019-01-19 Completed University of 00:00:00 [facility] PPD (TB) 2019-01-19 Completed University of 00:00:00 [facility] PPD (TB) 2019-01-19 Completed University of 00:00:00 [facility] PPD (TB) 2019-01-19 Completed University of 00:00:00 [facility] PPD (TB) 2019-01-19 Completed University of 00:00:00 [facility] PPD (TB) 2017-07-15 Completed University of 00:00:00 [facility] PPD (TB) 2017-07-15 Completed University of 00:00:00 [facility] PPD (TB) 2017-07-15 Completed University of 00:00:00 [facility] PPD (TB) 2017-07-15 Completed University of 00:00:00 [facility] PPD (TB) 2017-07-15 Completed University of 00:00:00 [facility] PPD (TB) 2017-07-15 Completed University of 00:00:00 [facility] PPD (TB) 2017-07-15 Completed University of 00:00:00 [facility] PPD (TB) 2017-07-15 Completed University of 00:00:00 [facility] PPD (TB) 2017-07-15 Completed University of 00:00:00 [facility] PPD (TB) 2017-07-15 Completed University of 00:00:00 [facility] PPD (TB) 2017-07-15 Completed University of 00:00:00 [facility] PPD (TB) 2017-07-15 Completed University of 00:00:00 [facility] PPD (TB) 2017-07-15 Completed University of 00:00:00 [facility] PPD (TB) 2017-07-15 Completed University of 00:00:00 [facility] PPD (TB) 2017-07-15 Completed University of 00:00:00 [facility] Influenza Virus 2017-07-08 Completed Universit y of Vaccine Quad IM 3+ 00:00:00 [facility] PPD (TB) 2017-07-08 Completed University of 00:00:00 [facility] Influenza Virus 2017-07-08 Completed Universit y of Vaccine Quad IM 3+ 00:00:00 [facility] PPD (TB) 2017-07-08 Completed University of 00:00:00 [facility] Influenza Virus 2017-07-08 Completed Universit y of Vaccine Quad IM 3+ 00:00:00 [facility] Influenza Virus 2017-07-08 Completed Universit y of Vaccine Quad IM 3+ 00:00:00 [facility] PPD (TB) 2017-07-08 Completed University of 00:00:00 [facility] PPD (TB) 2017-07-08 Completed University of 00:00:00 [facility] Influenza Virus 2017-07-08 Completed Universit y of Vaccine Quad IM 3+ 00:00:00 [facility] PPD (TB) 2017-07-08 Completed University of 00:00:00 [facility] Influenza Virus 2017-07-08 Completed Universit y of Vaccine Quad IM 3+ 00:00:00 [facility] PPD (TB) 2017-07-08 Completed University of 00:00:00 [facility] Influenza Virus 2017-07-08 Completed Universit y of Vaccine Quad IM 3+ 00:00:00 [facility] PPD (TB) 2017-07-08 Completed University of 00:00:00 [facility] Influenza Virus 2017-07-08 Completed Universit y of Vaccine Quad IM 3+ 00:00:00 [facility] PPD (TB) 2017-07-08 Completed University of 00:00:00 [facility] Influenza Virus 2017-07-08 Completed Universit y of Vaccine Quad IM 3+ 00:00:00 [facility] PPD (TB) 2017-07-08 Completed University of 00:00:00 [facility] Influenza Virus 2017-07-08 Completed Universit y of Vaccine Quad IM 3+ 00:00:00 [facility] PPD (TB) 2017-07-08 Completed University of 00:00:00 [facility] Influenza Virus 2017-07-08 Completed Universit y of Vaccine Quad IM 3+ 00:00:00 [facility] PPD (TB) 2017-07-08 Completed University of 00:00:00 [facility] Influenza Virus 2017-07-08 Completed Universit y of Vaccine Quad IM 3+ 00:00:00 [facility] PPD (TB) 2017-07-08 Completed University of 00:00:00 [facility] Influenza Virus 2017-07-08 Completed Universit y of Vaccine Quad IM 3+ 00:00:00 [facility] PPD (TB) 2017-07-08 Completed University of 00:00:00 [facility] Influenza Virus 2017-07-08 Completed Universit y of Vaccine Quad IM 3+ 00:00:00 [facility] PPD (TB) 2017-07-08 Completed University of 00:00:00 [facility] Influenza Virus 2017-07-08 Completed Universit y of Vaccine Quad IM 3+ 00:00:00 [facility] PPD (TB) 2017-07-08 Completed University of 00:00:00 [facility] Vital Signs Vital Name Observation Time Observation Value Comments Source Systolic blood 2019-04-09 18:45:00 111 mm[Hg] Univer sity [facility] Diastolic blood 2019-04-09 18:45:00 63 mm[facility]Hg[facility] Heart rate 2019-04-09 18:45:00 81 /min General acute hospital Body temperature 2019-04-09 18:45:00 36.89 Alana [facility] Respiratory rate 2019-04-09 18:45:00 16 /min [facility] Body height 2019-04-09 18:45:00 157.5 cm General acute hospital Body weight 2019-04-09 18:45:00 59.648 kg General acute hospital BMI 2019-04-09 18:45:00 24.05 kg/m2 General acute hospital Systolic blood 2019-04-09 18:45:00 111 mm[Hg] Univer sity of pressure [facility] Diastolic blood 2019-04-09 18:45:00 63 mm[Hg] Unive rsity of pressure [place] [facility] Heart rate 2019-04-09 18:45:00 81 /min Universi ty of [place] [facility] Body temperature 2019-04-09 18:45:00 36.89 Alana Univ ersity of [place] [facility] Respiratory rate 2019-04-09 18:45:00 16 /min Univ ersity of [place] [facility] Body height 2019-04-09 18:45:00 157.5 cm Universi ty of [place] [facility] Body weight 2019-04-09 18:45:00 59.648 kg Universi ty of [place] [facility] BMI 2019-04-09 18:45:00 24.05 kg/m2 Universi ty of [place] [facility] Heart rate 2019-04-02 00:45:00 91 /min Universi ty of [place] [facility] Oxygen saturation in 2019-04-02 00:30:00 100 /min University of Arterial blood by [place] [facility] beka Pulse oximetry Branch Systolic blood 2019-04-01 23:46:00 108 mm[Hg] Univer sity of pressure [place] [facility] Diastolic blood 2019-04-01 23:46:00 68 mm[Hg] Unive rsity of pressure [place] [facility] Body temperature 2019-04-01 21:57:00 36.67 Alana Univ ersity of [place] [facility] Respiratory rate 2019-04-01 21:57:00 16 /min Univ ersity of [place] [facility] Heart rate 2019-04-02 00:45:00 91 /min Universi ty of [place] [facility] Oxygen saturation in 2019-04-02 00:30:00 100 /min University of Arterial blood by [place] Son[place] beka Pulse oximetry Branch Systolic blood 2019-04-01 [...] 18:20:00 118 mm[Hg] Univer sity of pressure [place] [facility] Diastolic blood 2019-03-26 18:20:00 68 mm[Hg] Unive rsity of pressure [place] [facility] Heart rate 2019-03-26 18:20:00 62 /min Universi ty of [place] [facility] Body temperature 2019-03-26 18:20:00 36.72 Alana Univ ersity of [place] [facility] Respiratory rate 2019-03-26 18:20:00 16 /min Univ ersity of [place] [facility] Body height 2019-03-26 18:20:00 157.5 cm Universi ty [facility] [place] [facility] Body weight 2019-03-26 18:20:00 58.514 kg Universi ty of [place] [facility] BMI 2019-03-26 18:20:00 23.59 kg/m2 Universi ty of [place] [facility] Systolic blood 2019-03-26 18:20:00 118 mm[Hg] Univer sity of pressure [place] [facility] Diastolic blood 2019-03-26 18:20:00 68 mm[Hg] Unive rsity of pressure [place] [facility] Heart rate 2019-03-26 18:20:00 62 /min Universi ty of [place] [facility] Body temperature 2019-03-26 18:20:00 36.72 Alana Univ ersity of [place] [facility] Respiratory rate 2019-03-26 18:20:00 16 /min Univ ersity of [place] [facility] Body height 2019-03-26 18:20:00 157.5 cm Universi ty [facility] [place] [facility] Body weight 2019-03-26 18:20:00 58.514 kg Universi ty [facility] [place] [facility] BMI 2019-03-26 18:20:00 23.59 kg/m2 Universi ty [facility] [place] [facility] Systolic blood 2019-03-12 18:28:00 109 mm[Hg] Univer sity of pressure [place] [facility] Diastolic blood 2019-03-12 18:28:00 68 mm[Hg] Unive rsity of pressure [place] [facility] Heart rate 2019-03-12 18:28:00 98 /min Universi ty of [place] [facility] Body temperature 2019-03-12 18:28:00 36.72 Alana Univ ersity of [place] [facility] Respiratory rate 2019-03-12 18:28:00 20 /min Univ ersity of [place] [facility] Body height 2019-03-12 18:28:00 157.5 cm Universi ty [facility] [place] [facility] Body weight 2019-03-12 18:28:00 57.323 kg Universi ty of [place] [facility] BMI 2019-03-12 18:28:00 23.11 kg/m2 General acute hospital Procedures Procedure Date / Time Performing Clinician Source Performed POCT URINALYSIS 2019-04-09 18:46:00 Lucy Razo [facility] NON-STRESS TEST 2019-04-02 00:38:50 Olivia Fernando [facility] ADC CLC OR L[facility] ONLY - 2019-04-01 22:38:00 Olivia Fernando [facility] NOTICE OF PRIVACY 2019-04-01 21:37:21 Doctor Unassigned, No [facility] ASSIGNMENT OF BENEFITS 2019-04-01 21:36:29 Doctor Unassigned, No [facility] POCT URINALYSIS 2019-03-26 18:22:00 Lucy Razo [facility] SCANNED LAB RESULTS 2019-03-21 05:01:00 [facility] 2019-03-12 18:36:28 Kamini Álvarez [facility] POCT URINALYSIS 2019-03-12 18:31:00 Lucy Razo [facility] STERILIZATION CONSENT 2019-03-12 05:01:00 Doctor Unassigned, No [facility] GENETICS COUNSELING NOTE 2019-02-24 05:01:00 Doctor Unassigned, No [facility] Encounters Start End Encounter Admission Attending Care Care Encounter Source Date/Time Date/Time Type Type Clinicians Facility Department ID 2019-04-09 2019-04-09 Routine Henri NERAFAELA [id number] [facility] 13:26:49 13:53:34 Kamini Kee MULE SPINNER 350.1.13.10 i ty of Visit REGIONAL 4.2.7.2.686 [place] MATERNAL [id number] Med ical & CHILD [address] [place] [address] 2019-04-09 2019-04-09 Routine Henri NERAFAELA [id number] 13:26:49 13:53:34 Kamini Kee MULE SPINNER 350.1.13.10 Visit REGIONAL 4.2.7.2.686 MATERNAL [id number] & CHILD 107 [facility] 2019-04-01 2019-04-01 [facility] Olivia Fernando [facility] [id number] [facility] 16:38:02 19:54:00 Encounter Eyal Nelson 350.1.13.10 [place] [id number] [address] 2019-04-01 2019-04-01 [facility] Olivia Fernando [facility] [id number] 16:38:02 19:54:00 Encounter Eyal Nelson 350.1.13.10 [place] 4.2.7.2.686 [place] [id number] [facility] 2019-04-01 2019-04-01 Orders Doctor FRANCES 1.2.840.114 [id number] Univers 00:00:00 00:00:00 Only Unassigned, AMBAR 350.1.13.10 ity of [place] [facility] 4.2.7.2.686 [place] [id number] [facility] [address] [place] 2019-04-01 2019-04-01 Orders Doctor FRANCES 1.2.840.114 [id number] 00:00:00 00:00:00 Only Unassigned, AMBAR 350.1.13.10 [place] [facility] 4.2.7.2.686 [id number] Formerly named [facility] 2019-03-26 2019-03-26 [facility] [id number] [facility] 13:10:26 13:34:57 Kamini Kee MULE SPINNER 350.1.13.10 i ty of Visit [facility] 4.2.7.2.686 [place] MATERNAL [phone] Med ical & CHILD 107 [facility] 2019-03-26 2019-03-26 [facility] [id number] 13:10:26 13:34:57 Kamini Kee MULE SPINNER 350.1.13.10 Visit [facility] 4.2.7.2.686 MATERNAL [id number] & CHILD 107 [facility] 2019-03-22 2019-03-22 Telephone JE Brooke [id number] Univers 00:00:00 00:00:00 [place] [facility] 350.1.13.10 ity of [place] 4[place]2.[place] [id number] [facility] [address] [place] 2019-03-21 2019-03-21 Orders Doctor FRANCES 1.2.840.114 [id number] Univers 00:00:00 00:00:00 Only Unassigned, AMBAR 350.1.13.10 ity of [place] [facility] 4.2.7.2.686 [place] [id number] [facility] 009 Branch 2019-03-17 2019-03-17 Case Edwardo, [facility] 1.2.840.114 [id number] Univers 00:00:00 00:00:00 Management Galina [place] [facility] 350.1.13.10 ity of CL[place] 4.2.7.2.[place] [id number] [facility] [address] [place] 2019-03-17 2019-03-17 Case Brooke, [facility] 1.2.840.114 [id number] 00:00:00 00:00:00 Management [place] [facility] 350.1.13.10 CLINICS 4.2.7.2.686 [id number] [facility] 2019-03-15 2019-03-15 Telephone Henri NERAFAELA 1.2.840.114 [id number] Univers 00:00:00 00:00:00 Kamini Kee MULE SPINNER 350.1.13.10 it y of [facility] 4.2.7.2.686 [place] MATERNAL [id number] Med ical & CHILD [address] [place] [address] 2019-03-12 2019-03-12 [employer] [employer] [facility], [facility] 1.2.840. [id number] Univers 14:05:53 14:06:34 Visit Kamini Álvarez MULE SPINNER 350.1.13.10 ity of REGIONAL 4.2.7.2.686 [place] MATERNAL [id number] Med ical & CHILD [address] [place] [address] 2019-03-12 2019-03-12 Routine Henri [facility] [id number] Univers 13:22:41 14:03:26 Kamini N MULE SPINNER 350.1.13.10 i ty of Visit [facility] 4.2.7.2.686 [place] MATERNAL [phone] Med ical & CHILD 107 [facility] 2019-03-12 2019-03-12 Orders Doctor FRANCES 1.2.840.114 [id number] Univers 00:00:00 00:00:00 Only Unassigned, AMBAR 350.1.13.10 ity of [place] [facility] 4.2.7.2.686 [place] [id number] [address] 2019-03-12 2019-03-12 Orders Doctor FRANCES 1.2.840.114 [id number] 00:00:00 00:00:00 Only Unassigned, AMBAR 350.1.13.10 [place] [facility] 4.2.7.2.686 [id number] 009 2019-03-09 2019-03-09 Case Edwardo, [facility] 1.2.840.114 [id number] Univers 00:00:00 00:00:00 Management [place] [facility] 350.1.13.10 ity of CL[place] 4[place] [id number] [address] 2019-02-24 2019-02-24 [facility] 1.2.840.114 [id number] [facility] 10:25:40 12:32:56 Visit Galina [employer] [facility] 350.1.13.10 ity of CL[place] 4.2.[place].2.[place] [id number] [address] 2019-02-24 2019-02-24 Orders Doctor FRANCES 1.2.840.114 [id number] Univers 00:00:00 00:00:00 Only Unassigned, AMBAR 350.1.13.10 ity of [place] [facility] 4.2.7.2.686 [place] [id number] [address] Results Test Description Test Time Test [...] POCT U APPEAR (test code = 3267) [facility] [id number] 00:39:56 Reactive and reassuringOne contraction with mild irritability on [place] Oliviachandrika Fernando MD?04/01/2019?7:39 PMUnSt[facility] ONLY - WET [id number] 23:17:00 Test Item Value Reference Range Interpretation Comments Wet Prep (test code No Trichomonas vaginalis = [id number]) present [facility] URINALYSIS W SPECIFIC [id number] 18:23:00 Test Item Value Reference Range Interpretation [...] POCT U APPEAR (test code = 3267) [facility] URINALYSIS W SPECIFIC [id number] 18:23:00 Test Item Value Reference Range Interpretation [...] [facility] (test code = 3267) [facility] [id number] 18:31:00 Test Item Value Reference Range Interpretation [...] POCT U APPEAR (test code = 3267) [facility]
--- NOTE | 2021-08-31 17:31 | EDPHYS ---
Physician Documentation [facility] Name: Noa Yoon Age: 26 yrs Sex: Female : 1995 Arrival Date: 08/31/2021 Time: 16:54 Bed Waiting Private MD: ED Physician Venkat Brice HPI: 08/31 17:30 This 26 yrs old Female presents to ER via Ambulatory with complaints of Covid kb Test. 17:30 The patient complains of pain to the forehead. The patient describes the headache as kb constant. Onset: The symptoms/episode began/occurred 2 day(s) ago. Associated signs and symptoms: The patient has no apparent associated signs or symptoms. Severity of symptoms: At its worst the pain was moderate, in the emergency department the pain is unchanged. Headache History: Denies prior headaches. The symptoms are alleviated by nothing. the symptoms are aggravated by nothing. The patient has not experienced similar symptoms in the past. The patient has not recently seen a physician. Pt states she has had a headache for 2 days. States her is positive for covid and she needs to be tested. . 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 - Social history:: Smoking status: Patient denies any tobacco usage or history of. ROS: 17:29 Constitutional: Negative for fever, chills, and weight loss. kb 17:29 Neuro: Positive for headache. 17:29 All other systems are negative. Exam: 17:29 Constitutional: This is a well developed, well nourished patient who is awake, alert, kb and in no acute distress. Head/Face: Normocephalic, atraumatic. ENT: Moist Mucous membranes Cardiovascular: Regular rate and rhythm with a normal S1 and S2. No gallops, murmurs, or rubs. No pulse deficits. Respiratory: Respirations even and unlabored. No increased work of breathing. Talking in full sentences Skin: Warm, dry with normal turgor. Normal color. MS/ Extremity: Pulses equal, no cyanosis. Neurovascular intact. Full, normal range of motion. Neuro: Awake and alert, GCS 15, oriented to person, place, time, and situation. Moves all extremities. Normal gait. Psych: Awake, alert, with orientation to person, place and time. Behavior, mood, and affect are within normal limits. Vital Signs: 17:15 Temp 97.8; Weight 49.9 kg; Height 5 ft. 7 in. (170.18 cm); ap3 17:27 BP 123 / 76; Pulse 76; Temp 97.8; Pulse Ox 100% ; ap3 17:15 Body Mass Index 17.23 (49.90 kg, 170.18 cm) ap3 MDM: 17:24 Patient medically screened. kb 17:29 Data reviewed: vital signs, nurses notes. Data interpreted: Pulse oximetry: on room air kb is 100 %. Interpretation: normal. Counseling: I had a detailed discussion with the patient and/or guardian regarding: the historical points, exam findings, and any diagnostic results supporting the discharge/admit diagnosis, the need for outpatient follow up, a family practitioner, to return to the emergency department if symptoms worsen or persist or if there are any questions or concerns that arise at home. 08/31 17:25 Order name: COVID-19 (Coronavirus) Document "Date of Onset" if Symptomatic kb 08/31 17:26 Order name: COVID 19 [facility] EDMS Administered Medications: No medications were administered Disposition: 19:11 Co-signature as Attending Physician, Venkat Brice MD I agree with the assessment and kdr plan of care. Disposition Summary: 08/31/21 17:31 Discharge Ordered Location: Home kb Condition: Stable kb Diagnosis - Headache kb Followup: kb - With: Emergency Department - When: As needed - Reason: Worsening of condition Followup: kb - With: Private Physician - When: 2 - 3 days - Reason: Recheck today's complaints, Continuance of care, Re-evaluation by your physician Discharge Instructions: - Discharge Summary Sheet kb - General Headache Without Cause, [id number] kb Forms: - Medication Reconciliation Form kb - Thank You Letter kb - Antibiotic Education kb - Prescription Opioid Use kb Signatures: Dispatcher [employer] EDMS Anna Sharma FNP-C FNP-Ckb Rittger, Kevin, MD MD kdr Arleth Mcpherson, RN RN ap3
--- NOTE | 2021-08-31 17:31 | ER ---
Nurse's Notes [facility] Name: Noa Yoon Age: 26 yrs Sex: Female : 1995 Arrival Date: 08/31/2021 Time: 16:54 Bed Waiting Private MD: Diagnosis: Headache Presentation: 08/31 17:15 Chief complaint: Patient states: her tested positive and she has had a headache ap3 for 2-3 days. Coronavirus screen: Client presents with at least one sign or symptom that may indicate coronavirus-19. Standard/surgical mask placed on the client. Ebola Screen: No symptoms or risks identified at this time. Initial Sepsis Screen: Does the patient meet any 2 criteria? No. Patient's initial sepsis screen is negative. Does the patient have a suspected source of infection? No. Patient's initial sepsis screen is negative. Risk Assessment: Do you want to hurt yourself or someone else? Patient reports no desire to harm self or others. Onset of symptoms was August 29, 2021. 17:15 Method Of Arrival: Ambulatory ap3 17:27 Acuity: JULIETTE 4 ap3 Triage Assessment: 17:20 General: Appears in no apparent distress. Behavior is calm, cooperative, appropriate ap3 for age. Pain: Complains of pain in headache. Neuro: Level of Consciousness is awake, alert, obeys commands, Oriented to person, place, time, situation, Appropriate for age Speech is normal. Respiratory: Airway is patent. 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 - Social history:: Smoking status: Patient denies any tobacco usage or history of. Screenin:19 Abuse screen: Denies threats or abuse. Nutritional screening: No deficits noted. ap3 Tuberculosis screening: No symptoms or risk factors identified. 17:28 Fall Risk None identified. ap3 Vital Signs: 17:15 Temp 97.8; Weight 49.9 kg; Height 5 ft. 7 in. (170.18 cm); ap3 17:27 BP 123 / 76; Pulse 76; Temp 97.8; Pulse Ox 100% ; ap3 17:15 Body Mass Index 17.23 (49.90 kg, 170.18 cm) ap3 ED Course: 16:54 Patient arrived in ED. mr 17:20 Arm band placed on right wrist. ap3 17:24 Anna Sharma FNP-C is [facility]. kb 17:24 Venkat Brice MD is Attending Physician. kb 17:28 Triage completed. ap3 17:28 Patient has correct armband on for positive identification. ap3 17:55 No provider procedures requiring assistance completed. Patient did not have IV access jl7 during this emergency room visit. Administered Medications: No medications were administered Outcome: 17:31 Discharge ordered by . kb 17:55 Discharged to home ambulatory. jl7 17:55 Condition: stable 17:55 Discharge instructions given to patient, Instructed on discharge instructions, follow up and referral plans. Demonstrated understanding of instructions, follow-up care. 17:55 Patient left the ED. jl7 Signatures: Anna Sharma FNP-C FNP-Apolonia Sepulveda mr SpannWill RN RN jl7 Arleth Mcpherson RN RN ap3
[2021-08-31 18:00] VITALS: TEMP 97.8
[2021-08-31 18:02] VITALS: BP 123/76; O2SAT 100
== END 2021-08-31 17:55 | disposition home or self-care (01) ==
LOC: ER 16:40
DX: R51.9 Headache, unspecified (principal)
CPT/HCPCS: 99281; U0002

== ENCOUNTER 2021-11-11 12:52 | Emergency (ER) | payer OTHER ==
--- OUTSIDE RECORDS SUMMARY | 2021-11-11 12:55 | XMS REPORT | Continuity of Care Document ---
:[address] [facility] t Address [address] [place] [address] Care Team Providers Name Role Phone Henri [...] ligation 8-09 ity of status status 00:00: [place] [address] Medical Branch Abnormal Abnormal Disease Active Overview: Un tahira quad quad 7-15 OSB 1:15, ity of screen screen 00:00: may need [place] [address] recalcula Medical tion Branch Susceptibl Susceptibl Disease [...] Stop Date Quantity Comments Source ASSERTION 2018-08-25 [facility] 00:00:00 Medical Branch Alcohol intake [facility] [place] [facility] Smoking Status Start Date Stop Date Source Never smoker [facility] Medications Ordered Filled Start Stop Current Ordering Indication Dosage Frequency Signature Comments Components Source Medication Medication Date Date Medication? Clinician (SIG) Name Name metroNIDAZO 2019- No [id number] 500mg Take 2 Univers LE 250 mg 8-29 -06 tablets by ity of tablet 00:00: 04:59 mouth 2 [place] 00 :00 (two) Medical times Branch daily for 7 days. Iron, Cbn & 2019-0 Yes 1{tbl} Take 1 Univers Gluc-FA-B12 8-12 tablet by ity of -C-DSS 00:00: mouth [place] (FERRALET 00 daily. [place] [address] Branch DUAL-IRON DELIVERY) 90-1-12-50 mg-mg-mcg-m g per tablet Iron, Cbn & 2019-0 Yes [id number] 1{tbl} Take 1 Univers Gluc-FA-B12 8-12 tablet by ity of -C-DSS 00:00: mouth [place] (FERRALET 00 daily. [place] [address] Branch DUAL-IRON DELIVERY) 90-1-12-50 mg-mg-mcg-m g per tablet Iron, Cbn & 2019-0 Yes 1{tbl} Take 1 Univers Gluc-FA-B12 8-12 tablet by ity of -C-DSS 00:00: mouth [place] (FERRALET 00 daily. [facility] 90 Branch DUAL-IRON DELIVERY) 90-1-12-50 mg-mg-mcg-m g per tablet Iron, Cbn & 2019-0 Yes [id number] 1{tbl} Take 1 Univers Gluc-FA-B12 8-12 tablet by ity of -C-DSS 00:00: mouth [place] (FERRALET 00 daily. Medical Branch DUAL-IRON DELIVERY) 90-1-12-50 mg-mg-mcg-m g per tablet Iron, Cbn & 2019-0 Yes [id number] 1{tbl} Take 1 Univers Gluc-FA-B12 8-12 tablet by ity of -C-DSS 00:00: mouth [place] (FERRALET 00 daily. Medical Branch DUAL-IRON DELIVERY) 90-1-12-50 mg-mg-mcg-m g per tablet Iron, Cbn & 2019-0 Yes [id number] 1{tbl} Take 1 Univers Gluc-FA-B12 8-12 tablet by ity of -C-DSS 00:00: mouth [place] (FERRALET [address] DUAL-IRON DELIVERY) 90-1-12-50 mg-mg-mcg-m g per tablet Iron, Cbn & 2019-0 Yes [id number] 1{tbl} Take 1 Univers Gluc-FA-B12 8-12 tablet by ity of -C-DSS 00:00: mouth [place] (FERRALET 00 daily. [place] [address] Branch DUAL-IRON DELIVERY) 90-1-12-50 mg-mg-mcg-m g per tablet Iron, Cbn & 2019-0 Yes [id number] 1{tbl} Take 1 Univers Gluc-FA-B12 8-12 tablet by ity of -C-DSS 00:00: mouth [place] (FERRALET 00 daily. [place] [address] Branch DUAL-IRON DELIVERY) 90-1-12-50 mg-mg-mcg-m g per tablet Iron, Cbn & 2019-0 Yes [id number] 1{tbl} Take 1 Univers Gluc-FA-B12 8-12 tablet by ity of -C-DSS 00:00: mouth [place] (FERRALET 00 daily. [place] [address] Branch DUAL-IRON DELIVERY) 90-1-12-50 mg-mg-mcg-m g per tablet 2019-0 Yes [id number] 1{packe Take 1 Univers vit 8-09 t} Packet by ity of 33-iron-fol 00:00: mouth [place] ic-dha 00 daily. Medical (SELECT-OB Branch + DHA) 29 mg iron-1 mg -250 mg combo pack Yes [id number] 1{packe Take 1 Univers vit 8-09 t} Packet by ity of 33-iron-fol 00:00: mouth [place] ic-dha daily. Medical (SELECT-OB Branch + DHA) 29 mg iron-1 mg -250 mg combo pack Yes [id number] 1{packe Take 1 Univers vit 8-09 t} Packet by ity of 33-iron-fol 00:00: mouth [place] ic-dha daily. Medical (SELECT-OB Branch + DHA) 29 mg iron-1 mg -250 mg combo pack Yes [id number] 1{packe Take 1 Univers vit 8-09 t} Packet by ity of 33-iron-fol 00:00: mouth [place] ic-dha daily. Medical (SELECT-OB Branch + DHA) 29 mg iron-1 mg -250 mg combo pack Yes [id number] 1{packe Take 1 Univers vit 8-09 t} Packet by ity of 33-iron-fol 00:00: mouth [place] ic-dha daily. Medical (SELECT-OB Branch + DHA) 29 mg iron-1 mg -250 mg combo pack Yes [id number] 1{packe Take 1 Univers vit 8-09 t} Packet by ity of 33-iron-fol 00:00: mouth [place] ic-dha daily. Medical (SELECT-OB Branch + DHA) 29 mg iron-1 mg -250 mg combo pack Yes [id number] 1{packe Take 1 Univers vit 8-09 t} Packet by ity of 33-iron-fol 00:00: mouth [place] ic-dha daily. Medical (SELECT-OB Branch + DHA) 29 mg iron-1 mg -250 mg combo pack Yes [id number] 1{packe Take 1 Univers vit 8-09 t} Packet by ity of 33-iron-fol 00:00: mouth [place] ic-dha 00 daily. Medical (SELECT-OB Branch + DHA) 29 mg iron-1 mg -250 mg combo pack Yes [id number] 1{packe Take 1 Univers vit 8-09 t} Packet by ity of 33-iron-fol 00:00: mouth [place] ic-dha 00 daily. Medical (SELECT-OB Branch + DHA) 29 mg iron-1 mg -250 mg combo pack 2018- Yes [id number] 1{packe Take 1 Univers vit 8-09 t} Packet by ity of 33-iron-fol 00:00: mouth [place] ic-dha 00 daily. Medical (SELECT-OB Branch + DHA) 29 mg iron-1 mg -250 mg combo pack Yes [id number] 1{packe Take 1 Univers vit 8-09 t} Packet by ity of 33-iron-fol 00:00: mouth [place] ic-dha 00 daily. Medical (SELECT-OB Branch + DHA) 29 mg iron-1 mg -250 mg combo pack Yes [id number] 1{packe Take 1 Univers vit 8-09 t} Packet by ity of 33-iron-fol 00:00: mouth [place] ic-dha 00 daily. Medical (SELECT-OB Branch + DHA) 29 mg iron-1 mg -250 mg combo pack Nitrofurant Yes [id number] 100mg Take 1 Univers oin&Nit. 7-22 capsule by ity o f Mac[place] 00:00: mouth [place] 100 mg 00 (two) Medical capsule times Branch daily. Nitrofurant 2018- Yes [id number] 100mg Take 1 Univers oin&Nit. 7-22 capsule by ity o f Macrocryst 00:00: mouth [place] 100 mg 00 (two) Medical capsule times Branch daily. Nitrofurant 2018- Yes [id number] 100mg Take 1 Univers oin&Nit. 7-22 capsule by ity o f Mac[place]ryst 00:00: mouth [place] 100 mg 00 (two) Medical capsule times Branch daily. Nitrofurant 2019- No [id number] 100mg Take 1 Univers oin&Nit. 7-22 08-09 capsule by ity of Macrocryst 00:00: 00:00 mouth 2 [place] 100 mg 00 :00 (two) Medical capsule times Branch daily. PNV 67-iron 2018- Yes [id number] 1{each} Take 1 Univers ps-folate 6-14 Each by ity of no.1-dha 00:00: mouth [place] (VITAFOL 00 daily. Medical ULTRA) 29 Branch mg iron- 1 mg-200 mg Cap PNV 67-iron 2018-0 Yes [id number] 1{each} Take 1 Univers ps-folate 6-14 Each by ity of no.1-dha 00:00: mouth [place] (VITAFOL 00 daily. Medical ULTRA) 29 Branch mg iron- 1 mg-200 mg Cap PNV 67-iron 2019- Yes [id number] 1{each} Take 1 Univers ps-folate 6-14 Each by ity of no.1-dha 00:00: mouth [place] (VITAFOL 00 daily. Medical ULTRA) 29 Branch mg iron- 1 mg-200 mg Cap PNV 67-iron 2019- No [id number] 1{each} Take 1 Univers ps-folate 6-14 08- Each by ity of no.1-dha 00:00: 00:00 mouth [place] (VITAFOL 00 :00 daily. Medical ULTRA) 29 Branch mg iron- 1 mg-200 mg Cap Immunizations Ordered Filled Immunization Date Status Comments Sour e Immunization Name Name TDAP (ADACEL) 2019-03-12 Completed University of VACCINE 00:00:00 [facility] TDAP (ADACEL) 2019-03-12 Completed University of VACCINE 00:00:00 [facility] TDAP (ADACEL) 2019-03-12 Completed University of VACCINE 00:00:00 [facility] TDAP (ADACEL) 2019-03-12 Completed University of VACCINE 00:00:00 [facility] TDAP (ADACEL) 2019-03-12 Completed University of VACCINE 00:00:00 [facility] TDAP (ADACEL) 2019-03-12 Completed University of VACCINE 00:00:00 [facility] TDAP (ADACEL) 2019-03-12 Completed University of VACCINE 00:00:00 [facility] Branch TDAP (ADACEL) 2019-03-12 Completed University of VACCINE 00:00:00 [facility] TDAP (ADACEL) 2019-03-12 Completed University of VACCINE 00:00:00 [facility] Branch TDAP (ADACEL) 2019-03-12 Completed University of VACCINE 00:00:00 [facility] TDAP (ADACEL) 2019-03-12 Completed University of VACCINE 00:00:00 [facility] TDAP (ADACEL) 2019-03-12 Completed University of VACCINE 00:00:00 [facility] PPD (TB) 2019-01-19 Completed University of 00:00:00 [facility] PPD (TB) 2019-01-19 Completed University of 00:00:00 [facility] Branch PPD (TB) 2019-01-19 Completed University of 00:00:00 [facility] PPD (TB) 2019-01-19 Completed University of 00:00:00 [facility] PPD (TB) 2019-01-19 Completed University of 00:00:00 [facility] PPD (TB) 2019-01-19 Completed University of 00:00:00 [facility] PPD (TB) 2019-01-19 Completed University of 00:00:00 [facility] PPD (TB) 2019-01-19 Completed University of 00:00:00 [facility] PPD (TB) 2019-01-19 Completed University of 00:00:00 [facility] PPD (TB) 2019-01-19 Completed University of 00:00:00 [facility] PPD (TB) 2019-01-19 Completed University of 00:00:00 [facility] PPD (TB) 2019-01-19 Completed University of 00:00:00 [facility] PPD (TB) 2019-01-19 Completed University of 00:00:00 [facility] PPD (TB) 2019-01-19 Completed University of 00:00:00 [facility] PPD (TB) 2019-01-19 Completed University of 00:00:00 [facility] PPD (TB) 2017-07-15 Completed University of 00:00:00 [facility] PPD (TB) 2017-07-15 Completed University of 00:00:00 [facility] PPD (TB) 2017-07-15 Completed University of 00:00:00 [facility] PPD (TB) 2017-07-15 Completed University of 00:00:00 [facility] PPD (TB) 2017-07-15 Completed University of 00:00:00 [facility] PPD (TB) 2017-07-15 Completed University of 00:00:00 [facility] PPD (TB) 2017-07-15 Completed University of 00:00:00 [facility] PPD (TB) 2017-07-15 Completed University of 00:00:00 [facility] PPD (TB) 2017-07-15 Completed University of 00:00:00 [facility] PPD (TB) 2017-07-15 Completed University of 00:00:00 [facility] PPD (TB) 2017-07-15 Completed University of 00:00:00 [facility] PPD (TB) 2017-07-15 Completed University of 00:00:00 [facility] PPD (TB) 2017-07-15 Completed University of 00:00:00 [facility] PPD (TB) 2017-07-15 Completed University of 00:00:00 [facility] PPD (TB) 2017-07-15 Completed University of 00:00:00 [facility] Influenza Virus 2017-07-08 Completed Universit y of Vaccine Quad IM 3+ 00:00:00 [facility] PPD (TB) 2017-07-08 Completed University of 00:00:00 [facility] Influenza Virus 2017-07-08 Completed Universit y of Vaccine Quad IM 3+ 00:00:00 [facility] PPD (TB) 2017-07-08 Completed University of 00:00:00 [facility] Influenza Virus 2017-07-08 Completed Universit y of Vaccine Quad IM 3+ 00:00:00 [facility] Influenza Virus 2017-07-08 Completed Universit y of Vaccine Quad IM 3+ 00:00:00 [facility] PPD (TB) 2017-07-08 Completed University of 00:00:00 [facility] PPD (TB) 2017-07-08 Completed University of 00:00:00 [facility] Influenza Virus 2017-07-08 Completed Universit y of Vaccine Quad IM 3+ 00:00:00 [facility] PPD (TB) 2017-07-08 Completed University of 00:00:00 [facility] Influenza Virus 2017-07-08 Completed Universit y of Vaccine Quad IM 3+ 00:00:00 [facility] PPD (TB) 2017-07-08 Completed University of 00:00:00 [facility] Influenza Virus 2017-07-08 Completed Universit y of Vaccine Quad IM 3+ 00:00:00 [facility] PPD (TB) 2017-07-08 Completed University of 00:00:00 [facility] Influenza Virus 2017-07-08 Completed Universit y of Vaccine Quad IM 3+ 00:00:00 [facility] PPD (TB) 2017-07-08 Completed University of 00:00:00 [facility] Influenza Virus 2017-07-08 Completed Universit y of Vaccine Quad IM 3+ 00:00:00 [facility] PPD (TB) 2017-07-08 Completed University of 00:00:00 [facility] Influenza Virus 2017-07-08 Completed Universit y of Vaccine Quad IM 3+ 00:00:00 [facility] PPD (TB) 2017-07-08 Completed University of 00:00:00 [facility] Influenza Virus 2017-07-08 Completed Universit y of Vaccine Quad IM 3+ 00:00:00 [facility] PPD (TB) 2017-07-08 Completed University of 00:00:00 [facility] Influenza Virus 2017-07-08 Completed Universit y of Vaccine Quad IM 3+ 00:00:00 [facility] PPD (TB) 2017-07-08 Completed University of 00:00:00 [facility] Influenza Virus 2017-07-08 Completed Universit y of Vaccine Quad IM 3+ 00:00:00 [facility] PPD (TB) 2017-07-08 Completed University of 00:00:00 [facility] Influenza Virus 2017-07-08 Completed Universit y of Vaccine Quad IM 3+ 00:00:00 [facility] PPD (TB) 2017-07-08 Completed University of 00:00:00 [facility] Influenza Virus 2017-07-08 Completed Universit y of Vaccine Quad IM 3+ 00:00:00 [facility] PPD (TB) 2017-07-08 Completed University of 00:00:00 [facility] Vital Signs Vital Name Observation Time Observation Value Comments Source Systolic blood 2019-04-09 18:45:00 111 mm[Hg] Univer sity [facility] Diastolic blood 2019-04-09 18:45:00 63 mm[Hg] [facility] Heart rate 2019-04-09 18:45:00 81 /min [facility] Body temperature 2019-04-09 18:45:00 36.89 Alana [facility] Respiratory rate 2019-04-09 18:45:00 16 /min [facility] Body height 2019-04-09 18:45:00 157.5 cm [facility] Body weight 2019-04-09 18:45:00 59.648 kg [facility] BMI 2019-04-09 18:45:00 24.05 kg/m2 [facility] Systolic blood 2019-04-09 18:45:00 111 mm[Hg] Univer sity of pressure [facility] Diastolic blood 2019-04-09 18:45:00 63 mm[Hg] Unive rsity of pressure [place] [facility] Heart rate 2019-04-09 18:45:00 81 /min Universi ty of [place] [facility] Body temperature 2019-04-09 18:45:00 36.89 Alana Univ ersity of [place] [facility] Respiratory rate 2019-04-09 18:45:00 16 /min Univ ersity of [place] [facility] Body height 2019-04-09 18:45:00 157.5 cm Universi ty of [place] [facility] Body weight 2019-04-09 18:45:00 59.648 kg Universi ty of [place] [facility] BMI 2019-04-09 18:45:00 24.05 kg/m2 Universi ty of [place] [facility] Heart rate 2019-04-02 00:45:00 91 /min Universi ty of [place] [facility] Oxygen saturation in 2019-04-02 00:30:00 100 /min University of Arterial blood by [place] [email or web address] beka Pulse oximetry Branch Systolic blood 2019-04-01 23:46:00 108 mm[Hg] Univer sity of pressure [place] [facility] Diastolic blood 2019-04-01 23:46:00 68 mm[Hg] Unive rsity of pressure [place] [facility] Body temperature 2019-04-01 21:57:00 36.67 Alana Univ ersity of [place] [facility] Respiratory rate 2019-04-01 21:57:00 16 /min Univ ersity of [place] [facility] Heart rate 2019-04-02 00:45:00 91 /min Universi ty of [place] [facility] Oxygen saturation in 2019-04-02 00:30:00 100 /min University of Arterial blood by [place] [facility] beka Pulse oximetry Branch Systolic blood 2019-04-01 [...] 18:20:00 118 mm[Hg] Univer sity of pressure [place] [facility] Diastolic blood 2019-03-26 18:20:00 68 mm[Hg] Unive rsity of pressure [place] [facility] Heart rate 2019-03-26 18:20:00 62 /min Universi ty of [place] [facility] Body temperature 2019-03-26 18:20:00 36.72 Alana Univ ersity of [place] [facility] Respiratory rate 2019-03-26 18:20:00 16 /min Univ ersity of [place] [facility] Body height 2019-03-26 18:20:00 157.5 cm Universi ty [facility] [place] [facility] Body weight 2019-03-26 18:20:00 58.514 kg Universi ty of [place] [facility] BMI 2019-03-26 18:20:00 23.59 kg/m2 Universi ty [facility] [place] [facility] Systolic blood 2019-03-26 18:20:00 118 mm[Hg] Univer sity of pressure [place] [facility] Diastolic blood 2019-03-26 18:20:00 68 mm[Hg] Unive rsity of pressure [place] [facility] Heart rate 2019-03-26 18:20:00 62 /min Universi ty of [place] [facility] Body temperature 2019-03-26 18:20:00 36.72 Alana Univ ersity of [place] [facility] Respiratory rate 2019-03-26 18:20:00 16 /min Univ ersity of [place] [facility] Body height 2019-03-26 18:20:00 157.5 cm Universi ty [facility] [place] [facility] Body weight 2019-03-26 18:20:00 58.514 kg Universi ty [facility] [place] [facility] BMI 2019-03-26 18:20:00 23.59 kg/m2 Universi ty [facility] [place] [facility] Systolic blood 2019-03-12 18:28:00 109 mm[Hg] Univer sity of pressure [place] [facility] Diastolic blood 2019-03-12 18:28:00 68 mm[Hg] Unive rsity of pressure [place] [facility] Heart rate 2019-03-12 18:28:00 98 /min Universi ty [facility] [place] [facility] Body temperature 2019-03-12 18:28:00 36.72 Alana Univ ersity of [place] [facility] Respiratory rate 2019-03-12 18:28:00 20 /min Univ ersity of [place] [facility] Body height 2019-03-12 18:28:00 157.5 cm Universi ty [facility] [place] [facility] Body weight 2019-03-12 18:28:00 57.323 kg Universi ty [facility] [place] [facility] BMI 2019-03-12 18:28:00 23.11 kg/m2 [facility] Procedures Procedure Date / Time Performing Clinician Source Performed POCT URINALYSIS 2019-04-09 18:46:00 Lucy Razo [facility] NON-STRESS TEST 2019-04-02 00:38:50 Olivia Fernando [facility] ADC CLC OR LCC ONLY - 2019-04-01 22:38:00 Olivia Fernando [facility] NOTICE OF PRIVACY 2019-04-01 21:37:21 Doctor Unassigned, No [facility] ASSIGNMENT OF BENEFITS 2019-04-01 21:36:29 Doctor Unassigned, No [facility] POCT URINALYSIS 2019-03-26 18:22:00 Lucy Razo [facility] SCANNED LAB RESULTS 2019-03-21 05:01:00 [facility] 2019-03-12 18:36:28 Kamini Álvarez [facility] POCT URINALYSIS 2019-03-12 18:31:00 Lucy Razo [facility] STERILIZATION CONSENT 2019-03-12 05:01:00 Doctor Unassigned, No [facility] GENETICS COUNSELING NOTE 2019-02-24 05:01:00 Doctor Unassigned, No [facility] Encounters Start End Encounter Admission Attending Care Care Encounter Source Date/Time Date/Time Type Type Clinicians Facility Department ID 2019-04-09 2019-04-09 Routine Henri CTRAFAELA [id number] [facility] 13:26:49 13:53:34 Kamini Kee CLOTH INSPECTOR 350.1.13.10 i ty of Visit REGIONAL 4.2.7.2.686 [place] MATERNAL [id number] Med ical & CHILD [address] [place] [address] 2019-04-09 2019-04-09 Routine Henri CTRAFAELA [id number] 13:26:49 13:53:34 Kamini Kee CLOTH INSPECTOR 350.1.13.10 Visit REGIONAL 4.2.7.2.686 MATERNAL [id number] & CHILD [address] [facility] 2019-04-01 2019-04-01 [facility] Olivia Fernando [facility] [id number] [facility] 16:38:02 19:54:00 Encounter Eyal Nelson 350.1.13.10 ity of [place] 4[place].7.2.686 [place] [id number] [address] 2019-04-01 2019-04-01 [facility] Olivia Fernando [facility] [id number] 16:38:02 19:54:00 Encounter Eyla Nelson 350.1.13.10 [place] 4.2.7.2.686 [place] [id number] [facility] [place] 2019-04-01 2019-04-01 Orders Doctor FRANCES 1.2.840.114 [id number] Univers 00:00:00 00:00:00 Only Unassigned, AMBAR 350.1.13.10 ity of [place] [facility] 4.2.7.2.686 [place] [phone] [facility] [address] [place] 2019-04-01 2019-04-01 Orders Doctor FRANCES 1.2.840.114 [id number] 00:00:00 00:00:00 Only Unassigned, AMBAR 350.1.13.10 [place] [facility] 4.2.7.2.686 [id number] [facility] 2019-03-26 2019-03-26 [facility] [id number] [facility] 13:10:26 13:34:57 Kamini Kee CLOTH INSPECTOR 350.1.13.10 i ty of Visit [facility] 4.2.7.2.686 [place] MATERNAL [id number] Med ical & CHILD [address] [facility] 2019-03-26 2019-03-26 [facility] [id number] 13:10:26 13:34:57 Kamini Kee CLOTH INSPECTOR 350.1.13.10 Visit [facility] 4.2.7.2.686 MATERNAL [id number] & CHILD 107 [facility] 2019-03-22 2019-03-22 Telephone EJ Brooke 1.2.840.114 [id number] Univers 00:00:00 00:00:00 [place] [facility] 350.1.13.10 ity of CL[place] 4[place]7.2.[place] [id number] [facility] [address] [place] 2019-03-21 2019-03-21 Orders Doctor FRANCES 1.2.840.114 [id number] Univers 00:00:00 00:00:00 Only Unassigned, AMBAR 350.1.13.10 ity of [place] [facility] 4.2.7.2.686 [place] [id number] [facility] 009 Branch 2019-03-17 2019-03-17 Case Edwardo, [facility] [id number] Univers 00:00:00 00:00:00 Management Galina [place] [facility] 350.1.13.10 ity of CLINICS 4.2.7.2.[place] [id number] [facility] [address] [place] 2019-03-17 2019-03-17 Case Brooke, [facility] 1.2.840.114 [id number] 00:00:00 00:00:00 Management [place] HEALTH 350.1.13.10 CLINICS 4.2.7.2.686 [id number] [facility] 2019-03-15 2019-03-15 Telephone Henri CTRAFAELA 1.2.840.114 [id number] Univers 00:00:00 00:00:00 Kamini Kee CLOTH INSPECTOR 350.1.13.10 it y of [facility] 4.2.7.2.686 [place] MATERNAL [id number] Med ical & CHILD [address] [place] [address] 2019-03-12 2019-03-12 [facility], [facility] 1.2.840. [id number] Univers 14:05:53 14:06:34 Visit Kamini Álvarez CLOTH INSPECTOR 350.1.13.10 ity of REGIONAL 4.2.7.2.686 [place] MATERNAL [phone] Med ical & CHILD [address] [place] [address] 2019-03-12 2019-03-12 Routine Henri [facility] [id number] Univers 13:22:41 14:03:26 Kamini N CLOTH INSPECTOR 350.1.13.10 i ty of Visit [facility] 4.2.7.2.686 [place] MATERNAL [id number] Med ical & CHILD [address] [facility] 2019-03-12 2019-03-12 Orders Doctor FRANCES 1.2.840.114 [id number] Univers 00:00:00 00:00:00 Only Unassigned, AMBAR 350.1.13.10 ity of [place] [facility] 4.2.7.2.686 [place] [id number] [address] 2019-03-12 2019-03-12 Orders Doctor FRANCES 1.2.840.114 [id number] 00:00:00 00:00:00 Only Unassigned, AMBAR 350.1.13.10 [place] [facility] 4.2.7.2.686 [id number] 2019-03-09 2019-03-09 Case Edwardo, [facility] 1.2.840.114 [id number] Univers 00:00:00 00:00:00 Management [place] Amorelie [facility] 350.1.13.10 ity of CL[place] 4.2.7.2.[place] [id number] [address] 2019-02-24 2019-02-24 [facility] 1.2.840.114 [id number] [facility] 10:25:40 12:32:56 Visit Galina Amorelie [facility] 350.1.13.10 ity of CLIN[place] 4.2.7.2.[place] [id number] [address] 2019-02-24 2019-02-24 Orders Doctor FRANCES 1.2.840.114 [id number] Univers 00:00:00 00:00:00 Only Unassigned, AMBAR 350.1.13.10 ity of [place] [facility] 4.2.7.2.686 [place] [id number] [address] Results Test Description Test Time Test [...] POCT U APPEAR (test code = 3267) [facility] [id number] 00:39:56 Reactive and reassuringOne contraction with mild irritability on [place] Oliviachandrika Fernando MD?04/01/2019?7:39 [facility] - WET [id number] 23:17:00 Test Item Value Reference Range Interpretation Comments Wet Prep (test code No Trichomonas vaginalis = [id number]) present [facility] URINALYSIS W SPECIFIC [id number] 18:23:00 Test Item Value Reference Range Interpretation [...] POCT U APPEAR (test code = 3267) [facility] URINALYSIS W SPECIFIC [id number] 18:23:00 Test Item Value Reference Range Interpretation [...] PO[facility] (test code = 3267) [facility] [id number] 18:31:00 Test Item Value Reference Range Interpretation [...] POCT U APPEAR (test code = 3267) [facility]
[2021-11-11] MEDS ORDERED: FAMOTIDINE 20 MG/2 ML VIAL IV ONE (14:35)
[2021-11-11] MEDS ORDERED: ONDANSETRON 4 MG/2 ML VIAL ONE (14:35)
[2021-11-11] MEDS ORDERED: NA CHLORIDE 0.9% 1,000 ML ONE (14:35)
[2021-11-11 15:00] LABS: Absolute Lymphocytes (CBC) 0.3 K/uL (0.7-4.9); Hematocrit 39.4 % (36.0-45.0); Lymphocytes % 3.4 % (15.3-44.8); MPV 9.4 fL (7.6-11.3); RBC Red Blood Cell Count 4.82 M/uL (3.86-4.86)
[2021-11-11 15:13] LABS: Albumin 3.9 g/dL (3.4-5.0); Bilirubin Total 0.9 mg/dL (0.2-1.0); Protein, Total 7.8 g/dL (6.4-8.2)
--- NOTE | 2021-11-11 16:24 | EDPHYS ---
Physician Documentation [facility] Name: Noa Yoon Age: 26 yrs Sex: Female : 1995 Arrival Date: 11/11/2021 Time: 12:53 Bed 17 Private MD: PRAVIN Physician Eulogio Velazquez HPI: 11/11 14:17 This 26 yrs old Female presents to ER via Ambulatory with complaints of jmm Dizziness, Diarrhea, Vomiting. 14:17 The patient presents to the emergency department with nausea, vomiting, diarrhea. jmm Onset: The symptoms/episode began/occurred acutely, last night. Possible causes: unknown. The symptoms are aggravated by nothing. The symptoms are alleviated by nothing. Associated signs and symptoms: Pertinent negatives: abdominal pain. The patient has not experienced similar symptoms in the past. Historical: - Allergies: 13:01 No Known Allergies; ll1 - PMHx: 13:01 None; ll1 - PSHx: 13:01 section; ll1 - Immunization history:: Client reports receiving the 2nd dose of the Covid vaccine. - Social history:: Smoking status: Patient denies any tobacco usage or history of. ROS: 14:17 Constitutional: Negative for fever, chills, and weight loss, Eyes: Negative for injury, jmm pain, redness, and discharge, ENT: Negative for injury, pain, and discharge, Neck: Negative for injury, pain, and swelling, Cardiovascular: Negative for chest pain, palpitations, and edema, Respiratory: Negative for shortness of breath, cough, wheezing, and pleuritic chest pain. 14:17 Abdomen/GI: Positive for vomiting, diarrhea. 14:17 All other systems are negative. Exam: 14:17 Constitutional: This is a well developed, well nourished patient who is awake, alert, jmm and in no acute distress. Head/Face: atraumatic. Eyes: EOMI, no conjunctival erythema appreciated ENT: Moist Mucus Membranes Neck: Trachea midline, Supple Chest/axilla: Normal chest wall appearance and motion. Cardiovascular: Regular rate and rhythm. No edema appreciated Respiratory: Normal respirations, no respiratory distress appreciated 14:17 Back: Normal ROM Skin: General appearance color normal MS/ Extremity: Moves all extremities, no obvious deformities appreciated, no edema noted to the lower extremities Neuro: Awake and alert Psych: Behavior is normal, Mood is normal, Patient is cooperative and pleasant 14:17 Abdomen/GI: Inspection: abdomen appears normal, Bowel sounds: normal, Palpation: abdomen is soft and non-tender, in all quadrants, soft. Vital Signs: 13:00 BP 98 / 68; Pulse 103; Resp 16; Temp 97.7; Pulse Ox 100% ; Weight 45.36 kg; Height 5 ll1 ft. 3 in. (160.02 cm); Pain 0/10; 13:00 Body Mass Index 17.71 (45.36 kg, 160.02 cm) ll1 MDM: 14:17 Patient medically screened. [facility] 16:21 Data reviewed: vital signs, nurses notes. Counseling: I had a detailed discussion with [facility] the patient and/or guardian regarding: the historical points, exam findings, and any diagnostic results supporting the discharge/admit diagnosis, lab results, the need for outpatient follow up, to return to the emergency department if symptoms worsen or persist or if there are any questions or concerns that arise at home. ED course: Patient is alert nontoxic in appearance in the ED. Patient states feeling much better. Patient advised follow-up PCP and otherwise given strict return precautions. Patient otherwise in his early appendicitis return precautions. Patient understood agrees plan of care. materials engineering technician was used.. 11/11 14:18 Order name: CBC with Diff [facility] 11/11 14:18 Order name: CMP; Complete Time: 15:13 [facility] 11/11 14:18 Order name: Lipase; Complete Time: 15:13 [facility] 11/11 14:18 Order name: IV Saline Lock; Complete Time: 14:46 [facility] 11/11 14:18 Order name: Labs collected and sent; Complete Time: 14:46 [facility] Administered Medications: 14:40 Drug: NS 0.9% 1000 ml Route: IV; Rate: 1 bolus; Site: right antecubital; ww 14:40 Drug: Pepcid (famotidine) 20 mg Route: IVP; Site: right antecubital; ww 14:42 Drug: Zofran (Ondansetron) 4 mg Route: IVP; Site: right antecubital; ww Disposition Summary: 11/11/21 16:23 Discharge Ordered Location: Home [facility] Condition: Stable [facility] Diagnosis - Vomiting [facility] - Diarrhea, unspecified [facility] Followup: jmm - With: Private Physician - When: 2 - 3 days - Reason: Recheck today's complaints, Continuance of care, Re-evaluation by your physician Discharge Instructions: - Discharge Summary Sheet jm - Food Choices to Help Relieve Diarrhea, Adult jmm - Vomiting, Adult jmm Forms: - Medication Reconciliation Form [facility] - Thank You Letter traci - Antibiotic Education jm - Prescription Opioid Use [facility] Prescriptions: - ondansetron 4 mg Oral tablet,disintegrating - place 1 tablet by TRANSLINGUAL route every 4-6 hours As needed; 30 tablet; jmm Refills: 0, Product Selection Permitted - dicyclomine 20 mg Oral Tablet - take 1 tablet by ORAL route 4 times per day; 40 tablet; Refills: 0, Product [facility] Selection Permitted Addendum: 11/15/2021 18:36 Co-signature as Attending Physician, Eulogio Velazquez MD I agree with the assessment and c huerta plan of care. Signatures: Dispatcher [employer] Eulogio Stephens MD MD cha Mickail, Joel, PA PA jmm Lewis, Lynsay, RN RN ll1 Rachel Billingsley RN RN ww
--- NOTE | 2021-11-11 16:24 | ER ---
Nurse's Notes [facility] Name: Noa Yoon Age: 26 yrs Sex: Female : 1995 Arrival Date: 11/11/2021 Time: 12:53 Bed 17 Private MD: Diagnosis: Vomiting;Diarrhea, unspecified Presentation: 11/11 13:00 Chief complaint: Patient states: N/V/D, fatigue, weak, dizzy for 1 day. Coronavirus ll1 screen: Vaccine status: Patient reports receiving the 2nd dose of the covid vaccine. Client denies travel out of the [place] in the last 14 days. At this time, the client does not indicate any symptoms associated with coronavirus-19. Ebola Screen: Patient denies travel to an Ebola-affected area in the 21 days before illness onset. Initial Sepsis Screen: Does the patient meet any 2 criteria? HR > 90 bpm. No. Patient's initial sepsis screen is negative. Does the patient have a suspected source of infection? Yes: Acute abdominal pain. Risk Assessment: Do you want to hurt yourself or someone else? Patient reports no desire to harm self or others. Onset of symptoms was November 11, 2021. 13:00 Method Of Arrival: Ambulatory ll1 13:00 Acuity: JULIETTE 3 ll1 Triage Assessment: 13:01 General: Appears ill, Behavior is cooperative, appropriate for age. Pain: Denies pain. ll1 GI: Reports diarrhea, nausea, vomiting. Historical: - Allergies: 13:01 No Known Allergies; ll1 - PMHx: 13:01 None; ll1 - PSHx: 13:01 section; ll1 - Immunization history:: Client reports receiving the 2nd dose of the Covid vaccine. - Social history:: Smoking status: Patient denies any tobacco usage or history of. Screenin:05 Abuse screen: Denies threats or abuse. Denies injuries from another. Nutritional ww screening: No deficits noted. Tuberculosis screening: No symptoms or risk factors identified. Fall Risk None identified. Assessment: 14:30 General: Appears in no apparent distress. Behavior is calm, cooperative. Pain: Denies ww pain. Neuro: Level of Consciousness is awake, alert, obeys commands, Oriented to person, place, time, situation, Moves all extremities. Cardiovascular: Capillary refill < 3 seconds Patient's skin is warm and dry. Respiratory: Airway is patent Respiratory effort is even, unlabored, Respiratory pattern is regular, symmetrical. GI: Abdomen is non-distended, Abd is soft and non tender Reports nausea, vomiting. EENT: No signs and/or symptoms were reported regarding the EENT system. Derm: No signs and/or symptoms reported regarding the dermatologic system. Skin is intact, is healthy with good turgor. 16:30 Reassessment: Patient appears in no apparent distress at this time. No changes from ww previously documented assessment. Patient and/or family updated on plan of care and expected duration. Pain level reassessed. Patient is alert, oriented x 3, equal unlabored respirations, skin warm/dry/pink. 17:05 Reassessment: Patient appears in no apparent distress at this time. No changes from ww previously documented assessment. Patient and/or family updated on plan of care and expected duration. Pain level reassessed. Patient is alert, oriented x 3, equal unlabored respirations, skin warm/dry/pink. Vital Signs: 13:00 BP 98 / 68; Pulse 103; Resp 16; Temp 97.7; Pulse Ox 100% ; Weight 45.36 kg; Height 5 ll1 ft. 3 in. (160.02 cm); Pain 0/10; 13:00 Body Mass Index 17.71 (45.36 kg, 160.02 cm) ll1 ED Course: 12:53 Patient arrived in ED. ds1 13:01 Triage completed. ll1 13:01 Arm band placed on. ll1 14:09 Rodrigo Guan PA [facility] 14:09 Eulogio Velazquez MD is Attending Physician. [facility] 14:23 Rachel Billingsley, STEVE is Primary Nurse. ww 17:05 Patient has correct armband on for positive identification. Bed in low position. Call ww light in reach. Side rails up X 1. 17:05 No provider procedures requiring assistance completed. IV discontinued, bleeding ww controlled, No redness/swelling at site. Pressure dressing applied. Administered Medications: 14:40 Drug: NS 0.9% 1000 ml Route: IV; Rate: 1 bolus; Site: right antecubital; ww 14:40 Drug: Pepcid (famotidine) 20 mg Route: IVP; Site: right antecubital; ww 14:42 Drug: Zofran (Ondansetron) 4 mg Route: IVP; Site: right antecubital; ww Outcome: 16:23 Discharge ordered by . jhony 17:05 Discharged to home ambulatory. ww 17:05 Condition: stable 17:05 Discharge instructions given to patient, Instructed on discharge instructions, follow up and referral plans. Demonstrated understanding of instructions, follow-up care, medications, Prescriptions given X 1. 17:06 Patient left the ED. ww Signatures: Rodrigo Guan PA PA jmm Sanford, Demi ds1 Stephanie Mazariegos, RN RN ll1 Rachel Billingsley RN RN ww
[2021-11-11 17:28] VITALS: BP 98/68; TEMP 97.7; O2SAT 100
[2021-11-11 19:39] LABS: Platelet Estimate ADEQ; White Blood Cell Scan OK (OK)
[2021-11-11 19:40] LABS: Blood Morphology Comment NOT SEEN (NOT SEEN)
== END 2021-11-11 17:06 | disposition home or self-care (01) ==
LOC: ER 12:52
DX: R11.2 Nausea with vomiting, unspecified (principal); R19.7 Diarrhea, unspecified; R42 Dizziness and giddiness
CPT/HCPCS: 85025; 36415; 83690; 80053; 96375; 96374; 99283; J7030; J2405

== ENCOUNTER 2022-04-01 12:18 | Emergency (ER) | payer OTHER ==
--- OUTSIDE RECORDS SUMMARY | 2022-04-01 12:22 | XMS REPORT | Continuity of Care Document ---
:1995 Author Organization [facility] t Address [address] [place] [address] Care Team Providers Name Role Phone Henri Kamini NG Attending Clinician Abdullahi VANCE, Olivia Birch Attending Clinician Doctor Unassigned, [place] Attending Clinician Unavailable Galina Brooke MD Attending Clinician Lab, [facility] Attending Clinician Unavailable Abdullahi VANCE, Olivia Birch Admitting Clinician Payers Payer Name Policy Type Policy Number Effective Date Expiration Date S ource Problems Condition Condition Condition Status Onset Resolution Last Treating Co mments Source Name Details Category Date Date Treatment Clinician Date Anemia of Anemia of Disease Active Uni vers mother in mother in 8-12 [place]y [place] ante[place] antepartum 00 [place] dical Branch Tubal Tubal Disease Active Univers ligation ligation 8-09 ity of status status 00:00: [place] [facility] Abnormal Abnormal Disease Active Overview: Un [place] quad quad 7-15 OSB 1:15, ity of screen screen 00:00: may need [place] recalcula Medical tion Branch Susceptibl Susceptibl Disease [...] Stop Date Quantity Comments Source ASSERTION 2018-08-25 [facility] 00:00:00 Medical Branch Alcohol intake [facility] Sex Assigned At [facility] Medical Branch Smoking Status Start Date Stop Date Source Never smoker [facility] Medications Ordered Filled Start Stop Current Ordering Indication Dosage Frequency Signature Comments Components Source Medication Medication Date Date Medication? Clinician (SIG) Name Name metroNIDAZO 2019- No [id number] 500mg Take 2 Univers LE 250 mg 8-29 -06 tablets by ity of tablet 00:00: 04:59 mouth 2 [place] 00 :00 (two) Medical times Branch daily for 7 days. Iron, Cbn & 2019-0 Yes [id number] 1{tbl} Take 1 Univers Gluc-FA-B12 8-12 tablet by ity of -C-DSS 00:00: mouth [place] (FERRALET 00 daily. [place] [address] Branch DUAL-IRON DELIVERY) 90-1-12-50 mg-mg-mcg-m g per tablet Iron, Cbn & 2019- Yes [id number] 1{tbl} Take 1 Univers Gluc-FA-B12 8-12 tablet by ity of -C-DSS 00:00: mouth [place] (FERRALET 00 daily. [place] [address] Branch DUAL-IRON DELIVERY) 90-1-12-50 mg-mg-mcg-m g per tablet Iron, Cbn & 2019-0 Yes [id number] 1{tbl} Take 1 Univers Gluc-FA-B12 8-12 tablet by ity of -C-DSS 00:00: mouth [place] (FERRALET 00 daily. [facility] 90 Branch DUAL-IRON DELIVERY) 90-1-12-50 mg-mg-mcg-m g per tablet Iron, Cbn & 2019-0 Yes [id number] 1{tbl} Take 1 Univers Gluc-FA-B12 8-12 tablet by ity of -C-DSS 00:00: mouth [place] (FERRALET 00 daily. [place] [address] Branch DUAL-IRON DELIVERY) 90-1-12-50 mg-mg-mcg-m g per tablet Iron, Cbn & 2019-0 Yes [id number] 1{tbl} Take 1 Univers Gluc-FA-B12 8-12 tablet by ity of -C-DSS 00:00: mouth [place] (FERRALET 00 daily. [place] [address] Branch DUAL-IRON DELIVERY) 90-1-12-50 mg-mg-mcg-m g per tablet Iron, Cbn & 2019-0 Yes [id number] 1{tbl} Take 1 Univers Gluc-FA-B12 8-12 tablet by ity of -C-DSS 00:00: mouth [place] (FERRALET [address] DUAL-IRON DELIVERY) 90-1-12-50 mg-mg-mcg-m g per tablet Iron, Cbn & 2019-0 Yes [id number] 1{tbl} Take 1 Univers Gluc-FA-B12 8-12 tablet by ity of -C-DSS 00:00: mouth [place] (FERRALET [address] DUAL-IRON DELIVERY) 90-1-12-50 mg-mg-mcg-m g per tablet Iron, Cbn & 2019-0 Yes [id number] 1{tbl} Take 1 Univers Gluc-FA-B12 8-12 tablet by ity of -C-DSS 00:00: mouth [place] (FERRALET [address] DUAL-IRON DELIVERY) 90-1-12-50 mg-mg-mcg-m g per tablet Iron, Cbn & 2019-0 Yes [id number] 1{tbl} Take 1 Univers Gluc-FA-B12 8-12 tablet by ity of -C-DSS 00:00: mouth [place] (FERRALET [address] DUAL-IRON DELIVERY) 90-1-12-50 mg-mg-mcg-m g per tablet 2019-0 Yes [id number] 1{packe Take 1 Univers vit 8-09 t} Packet by ity of 33-iron-fol 00:00: mouth [place] ic-dha 00 daily. Medical (SELECT-OB Branch + DHA) 29 mg iron-1 mg -250 mg combo pack 2019- Yes [id number] 1{packe Take 1 Univers vit 8-09 t} Packet by ity of 33-iron-fol 00:00: mouth [place] ic-dha 00 daily. Medical (SELECT-OB Branch + DHA) 29 mg iron-1 mg -250 mg combo pack Yes [id number] 1{packe Take 1 Univers vit 8-09 t} Packet by ity of 33-iron-fol 00:00: mouth [place] ic-dha 00 daily. Medical (SELECT-OB Branch + DHA) 29 mg iron-1 mg -250 mg combo pack Yes [id number] 1{packe Take 1 Univers vit 8-09 t} Packet by ity of 33-iron-fol 00:00: mouth [place] ic-dha 00 daily. Medical (SELECT-OB Branch + DHA) 29 mg iron-1 mg -250 mg combo pack Yes [id number] 1{packe Take 1 Univers vit 8-09 t} Packet by ity of 33-iron-fol 00:00: mouth [place] ic-dha 00 daily. Medical (SELECT-OB Branch + DHA) 29 mg iron-1 mg -250 mg combo pack Yes [id number] 1{packe Take 1 Univers vit 8-09 t} Packet by ity of 33-iron-fol 00:00: mouth [place] ic-dha 00 daily. Medical (SELECT-OB Branch + DHA) 29 mg iron-1 mg -250 mg combo pack Yes [id number] 1{packe Take 1 Univers vit 8-09 t} Packet by ity of 33-iron-fol 00:00: mouth [place] ic-dha 00 daily. Medical (SELECT-OB Branch + DHA) 29 mg iron-1 mg -250 mg combo pack Yes [id number] 1{packe Take 1 Univers vit 8-09 t} Packet by ity of 33-iron-fol 00:00: mouth [place] ic-dha 00 daily. Medical (SELECT-OB Branch + DHA) 29 mg iron-1 mg -250 mg combo pack Yes [id number] 1{packe Take 1 Univers vit 8-09 t} Packet by ity of 33-iron-fol 00:00: mouth [place] ic-dha 00 daily. Medical (SELECT-OB Branch + DHA) 29 mg iron-1 mg -250 mg combo pack Yes [id number] 1{packe Take 1 Univers vit 8-09 t} Packet by ity of 33-iron-fol 00:00: mouth [place] ic-dha 00 daily. Medical (SELECT-OB Branch + DHA) 29 mg iron-1 mg -250 mg combo pack Yes [id number] 1{packe Take 1 Univers vit 8-09 t} Packet by ity of 33-iron-fol 00:00: mouth [place] ic-dha 00 daily. Medical (SELECT-OB Branch + DHA) 29 mg iron-1 mg -250 mg combo pack Yes [id number] 1{packe Take 1 Univers vit 8-09 t} Packet by ity of 33-iron-fol 00:00: mouth [place] ic-dha 00 daily. Medical (SELECT-OB Branch + DHA) 29 mg iron-1 mg -250 mg combo pack Nitrofurant Yes [id number] 100mg Take 1 Univers oin&Nit. 7-22 capsule by ity o f [place]: mouth [place] 100 mg 00 (two) Medical capsule times Branch daily. Nitrofurant 2018-0 Yes [id number] 100mg Take 1 Univers oin&Nit. 7-22 capsule by ity o f [place] 00:[place]: mouth [place] 100 mg 00 (two) Medical capsule times Branch daily. Nitrofurant 2018- Yes [id number] 100mg Take 1 Univers oin&Nit. 7-22 capsule by ity o f [place] 00:[place]: mouth [place] 100 mg 00 (two) Medical capsule times Branch daily. Nitrofurant 2019- No [id number] 100mg Take 1 Univers oin&Nit. 7-22 08-09 capsule by ity of Macrocryst 00:00: 00:00 mouth 2 [place] 100 mg 00 :00 (two) Medical capsule times Branch daily. PNV 67-iron 2018- Yes [id number] 1{each} Take 1 Univers ps-folate 6-14 Each by ity of no.1-dha 00:00: mouth [place] (VITAFOL 00 daily. Medical ULTRA) 29 Branch mg iron- 1 mg-200 mg Cap PNV 67-iron 2018- Yes [id number] 1{each} Take 1 Univers ps-folate 6-14 Each by ity of no.1-dha 00:00: mouth [place] (VITAFOL 00 daily. Medical ULTRA) 29 Branch mg iron- 1 mg-200 mg Cap PNV 67-iron 2018- Yes [id number] 1{each} Take 1 Univers ps-folate 6-14 Each by ity of no.1-dha 00:00: mouth [place] (VITAFOL 00 daily. Medical ULTRA) 29 Branch mg iron- 1 mg-200 mg Cap PNV 67-iron 2019- No [id number] 1{each} Take 1 Univers ps-folate 6-14 08- Each by ity of no.1-dha 00:00: 00:00 mouth [place] (VITAFOL 00 :00 daily. Medical ULTRA) 29 Branch mg iron- 1 mg-200 mg Cap Immunizations Ordered Filled Immunization Date Status Comments [facility] e Immunization Name Name TDAP (ADACEL) 2019-03-12 Completed University of VACCINE 00:00:00 [facility] TDAP (ADACEL) 2019-03-12 Completed University of VACCINE 00:00:00 [facility] TDAP (ADACEL) 2019-03-12 Completed University of VACCINE 00:00:00 [facility] TDAP (ADACEL) 2019-03-12 Completed University of VACCINE 00:00:00 [facility] TDAP (ADACEL) 2019-03-12 Completed University of VACCINE 00:00:00 [facility] TDAP (ADACEL) 2019-03-12 Completed University of VACCINE 00:00:00 [facility] TDAP (ADACEL) 2019-03-12 Completed University of VACCINE 00:00:00 [facility] TDAP (ADACEL) 2019-03-12 Completed University of VACCINE 00:00:00 [facility] TDAP (ADACEL) 2019-03-12 Completed University of VACCINE 00:00:00 [facility] TDAP (ADACEL) 2019-03-12 Completed University of VACCINE 00:00:00 [facility] TDAP (ADACEL) 2019-03-12 Completed University of VACCINE 00:00:00 [facility] TDAP (ADACEL) 2019-03-12 Completed University of VACCINE 00:00:00 [facility] PPD (TB) 2019-01-19 Completed University of 00:00:00 [facility] PPD (TB) 2019-01-19 Completed University of 00:00:00 [facility] PPD (TB) 2019-01-19 Completed University of 00:00:00 [facility] Branch PPD (TB) 2019-01-19 Completed University of 00:00:00 [facility] PPD (TB) 2019-01-19 Completed University of 00:00:00 [facility] PPD (TB) 2019-01-19 Completed University of 00:00:00 [facility] PPD (TB) 2019-01-19 Completed University of 00:00:00 [facility] PPD (TB) 2019-01-19 Completed University of 00:00:00 [facility] PPD (TB) 2019-01-19 Completed University of 00:00:00 [facility] PPD (TB) 2019-01-19 Completed University of 00:00:00 [facility] PPD (TB) 2019-01-19 Completed University of 00:00:00 [facility] PPD (TB) 2019-01-19 Completed University of 00:00:00 [facility] PPD (TB) 2019-01-19 Completed University of 00:00:00 [facility] PPD (TB) 2019-01-19 Completed University of 00:00:00 [facility] PPD (TB) 2019-01-19 Completed University of 00:00:00 [facility] PPD (TB) 2017-07-15 Completed University of 00:00:00 [facility] PPD (TB) 2017-07-15 Completed University of 00:00:00 [facility] PPD (TB) 2017-07-15 Completed University of 00:00:00 [facility] Branch PPD (TB) 2017-07-15 Completed University of 00:00:00 [facility] PPD (TB) 2017-07-15 Completed University of 00:00:00 [facility] PPD (TB) 2017-07-15 Completed University of 00:00:00 [facility] PPD (TB) 2017-07-15 Completed University of 00:00:00 [facility] PPD (TB) 2017-07-15 Completed University of 00:00:00 [facility] PPD (TB) 2017-07-15 Completed University of 00:00:00 [facility] PPD (TB) 2017-07-15 Completed University of 00:00:00 [facility] PPD (TB) 2017-07-15 Completed University of 00:00:00 [facility] PPD (TB) 2017-07-15 Completed University of 00:00:00 [facility] PPD (TB) 2017-07-15 Completed University of 00:00:00 [facility] PPD (TB) 2017-07-15 Completed University of 00:00:00 [facility] PPD (TB) 2017-07-15 Completed University of 00:00:00 [facility] Influenza Virus 2017-07-08 Completed Universit y of Vaccine Quad IM 3+ 00:00:00 [facility] PPD (TB) 2017-07-08 Completed University of 00:00:00 [facility] Influenza Virus 2017-07-08 Completed Universit y of Vaccine Quad IM 3+ 00:00:00 [facility] PPD (TB) 2017-07-08 Completed University of 00:00:00 [facility] Influenza Virus 2017-07-08 Completed Universit y of Vaccine Quad IM 3+ 00:00:00 [facility] Influenza Virus 2017-07-08 Completed Universit y of Vaccine Quad IM 3+ 00:00:00 [facility] PPD (TB) 2017-07-08 Completed University of 00:00:00 [facility] PPD (TB) 2017-07-08 Completed University of 00:00:00 [facility] Influenza Virus 2017-07-08 Completed Universit y of Vaccine Quad IM 3+ 00:00:00 [facility] PPD (TB) 2017-07-08 Completed University of 00:00:00 [facility] Influenza Virus 2017-07-08 Completed Universit y of Vaccine Quad IM 3+ 00:00:00 [facility] PPD (TB) 2017-07-08 Completed University of 00:00:00 [facility] Influenza Virus 2017-07-08 Completed Universit y of Vaccine Quad IM 3+ 00:00:00 [facility] PPD (TB) 2017-07-08 Completed University of 00:00:00 [facility] Influenza Virus 2017-07-08 Completed Universit y of Vaccine Quad IM 3+ 00:00:00 [facility] PPD (TB) 2017-07-08 Completed University of 00:00:00 [facility] Influenza Virus 2017-07-08 Completed Universit y of Vaccine Quad IM 3+ 00:00:00 [facility] PPD (TB) 2017-07-08 Completed University of 00:00:00 [facility] Influenza Virus 2017-07-08 Completed Universit y of Vaccine Quad IM 3+ 00:00:00 [facility] PPD (TB) 2017-07-08 Completed University of 00:00:00 [facility] Influenza Virus 2017-07-08 Completed Universit y of Vaccine Quad IM 3+ 00:00:00 [facility] PPD (TB) 2017-07-08 Completed University of 00:00:00 [facility] Influenza Virus 2017-07-08 Completed Universit y of Vaccine Quad IM 3+ 00:00:00 [facility] PPD (TB) 2017-07-08 Completed University of 00:00:00 [facility] Influenza Virus 2017-07-08 Completed Universit y of Vaccine Quad IM 3+ 00:00:00 [facility] PPD (TB) 2017-07-08 Completed University of 00:00:00 [facility] Influenza Virus 2017-07-08 Completed Universit y of Vaccine Quad IM 3+ 00:00:00 [facility] PPD (TB) 2017-07-08 Completed University of 00:00:00 [facility] Influenza Virus 2017-07-08 Completed Universit y of Vaccine Quad IM 3+ 00:00:00 [facility] PPD (TB) 2017-07-08 Completed University of 00:00:00 [facility] Vital Signs Vital Name Observation Time Observation Value Comments Source Systolic blood 2019-04-09 18:45:00 111 mm[Hg] Univer sity of pressure [facility] Diastolic blood 2019-04-09 18:45:00 63 mm[Hg] Unive rsity of [facility] Heart rate 2019-04-09 18:45:00 81 /min [facility] Body temperature 2019-04-09 18:45:00 36.89 Alana [facility] Respiratory rate 2019-04-09 18:45:00 16 /min [facility] Body height 2019-04-09 18:45:00 157.5 cm [facility] Body weight 2019-04-09 18:45:00 59.648 kg [facility] BMI 2019-04-09 18:45:00 24.05 kg/m2 [facility] Systolic blood 2019-04-09 18:45:00 111 mm[Hg] Univer sity of pressure [place] [facility] Diastolic blood 2019-04-09 18:45:00 63 mm[Hg] Unive rsity of pressure [place] [facility] Heart rate 2019-04-09 18:45:00 81 /min Universi ty of [place] [facility] Body temperature 2019-04-09 18:45:00 36.89 Alana Univ ersity of [place] [facility] Respiratory rate 2019-04-09 18:45:00 16 /min Univ ersity of [place] [facility] Body height 2019-04-09 18:45:00 157.5 cm Universi ty of [place] [facility] Body weight 2019-04-09 18:45:00 59.648 kg Universi ty of [place] [facility] BMI 2019-04-09 18:45:00 24.05 kg/m2 Universi ty of [place] [facility] Heart rate 2019-04-02 00:45:00 91 /min Universi ty of [place] [facility] Oxygen saturation in 2019-04-02 00:30:00 100 /min University of Arterial blood by [facility] [place] [facility] Pulse oximetry Branch Systolic blood 2019-04-01 23:46:00 108 mm[Hg] Univer sity of pressure [place] [facility] Diastolic blood 2019-04-01 23:46:00 68 mm[Hg] Unive rsity of pressure [place] [facility] Body temperature 2019-04-01 21:57:00 36.67 Alana Univ ersity of [place] [facility] Respiratory rate 2019-04-01 21:57:00 16 /min Univ ersity of [place] [facility] Heart rate 2019-04-02 00:45:00 91 /min Universi ty of [place] [facility] Oxygen saturation in 2019-04-02 00:30:00 100 /min University of Arterial blood by [facility] [place] [facility] Pulse oximetry Branch Systolic blood 2019-04-01 23:46:00 108 mm[Hg] Univer sity of pressure [place] [facility] Diastolic blood 2019-04-01 23:46:00 68 mm[Hg] Unive rsity of pressure [place] [facility] Body temperature 2019-04-01 21:57:00 36.67 Alana Univ ersity of [place] [facility] Respiratory rate 2019-04-01 21:57:00 16 /min Univ ersity of [place] [facility] Systolic blood 2019-03-26 18:20:00 118 mm[Hg] Univer sity of pressure [place] [facility] Diastolic blood 2019-03-26 18:20:00 68 mm[Hg] Unive rsity of pressure [place] [facility] Heart rate 2019-03-26 18:20:00 62 /min Universi ty of [place] [facility] Body temperature 2019-03-26 18:20:00 36.72 Alana Univ ersity of [place] [facility] Respiratory rate 2019-03-26 18:20:00 16 /min Univ ersity of [place] [facility] Body height 2019-03-26 18:20:00 157.5 cm Universi ty of [place] [facility] Body weight 2019-03-26 18:20:00 58.514 kg Universi ty of [place] [facility] BMI 2019-03-26 18:20:00 23.59 kg/m2 Universi ty of [place] [facility] Systolic blood 2019-03-26 18:20:00 118 mm[Hg] Univer sity of pressure [place] [facility] Diastolic blood 2019-03-26 18:20:00 68 mm[Hg] Unive rsity of pressure [place] [facility] Heart rate 2019-03-26 18:20:00 62 /min Universi ty of [place] [facility] Body temperature 2019-03-26 18:20:00 36.72 Alana Univ ersity of [place] [facility] Respiratory rate 2019-03-26 18:20:00 16 /min Univ ersity of [place] [facility] Body height 2019-03-26 18:20:00 157.5 cm Universi ty of [place] [facility] Body weight 2019-03-26 18:20:00 58.514 kg Universi ty of [place] [facility] BMI 2019-03-26 18:20:00 23.59 kg/m2 Universi ty of [place] [facility] Systolic blood 2019-03-12 18:28:00 109 mm[Hg] Univer sity of pressure [place] [facility] Diastolic blood 2019-03-12 18:28:00 68 mm[Hg] Unive rsity of pressure [place] [facility] Heart rate 2019-03-12 18:28:00 98 /min Universi ty of [place] [facility] Body temperature 2019-03-12 18:28:00 36.72 Alana Univ ersity of [place] [facility] Respiratory rate 2019-03-12 18:28:00 20 /min Univ ersity of [place] [facility] Body height 2019-03-12 18:28:00 157.5 cm Universi ty [facility] [place] [facility] Body weight 2019-03-12 18:28:00 57.323 kg Universi ty of [place] [facility] BMI 2019-03-12 18:28:00 23.11 kg/m2 [facility] Procedures Procedure Date / Time Performing Clinician Source Performed POCT URINALYSIS 2019-04-09 18:46:00 Lucy Razo [facility] NON-STRESS TEST 2019-04-02 00:38:50 Olivia Fernando [facility] ADC CLC OR [facility] ONLY - 2019-04-01 22:38:00 Olivia Fernando [facility] NOTICE OF PRIVACY 2019-04-01 21:37:21 Doctor Unassigned, No [facility] ASSIGNMENT OF BENEFITS 2019-04-01 21:36:29 Doctor Unassigned, No [facility] POCT URINALYSIS 2019-03-26 18:22:00 Lucy Razo [facility] SCANNED LAB RESULTS 2019-03-21 05:01:00 [facility] 2019-03-12 18:36:28 Kamini Álvarez [facility] POCT URINALYSIS 2019-03-12 18:31:00 Lucy Razo [facility] STERILIZATION CONSENT 2019-03-12 05:01:00 Doctor Unassigned, No [facility] GENETICS COUNSELING NOTE 2019-02-24 05:01:00 Doctor Unassigned, No [facility] Encounters Start End Encounter Admission Attending Care Care Encounter Source Date/Time Date/Time Type Type Clinicians Facility Department ID 2019-04-09 2019-04-09 Routine DIETER Álvarez [id number] [facility] 13:26:49 13:53:34 Kamini Kee REAL ESTATE TRANSACTION COORDINATOR 350.1.13.10 i ty of Visit REGIONAL 4.2.7.2.686 [place] MATERNAL [id number] Med ical & CHILD [address] [place] [address] 2019-04-09 2019-04-09 Routine DIETER Álvarez [id number] 13:26:49 13:53:34 Kamini Kee REAL ESTATE TRANSACTION COORDINATOR 350.1.13.10 Visit REGIONAL 4.2.7.2.686 MATERNAL [id number] & CHILD 107 [facility] 2019-04-01 2019-04-01 [facility] Olivia Fernando [facility] [id number] [facility] 16:38:02 19:54:00 Encounter Eyal [place] 350.1.13.10 ity [place] 4[place].2.686 [place] [id number] [address] 2019-04-01 2019-04-01 [facility] Olivia Fernando [facility] [id number] 16:38:02 19:54:00 Encounter Eyal Damon 350.1.13.10 [place] 4.2.7.2.686 [place] [id number] [facility] 2019-04-01 2019-04-01 Orders Doctor FRANCES [id number] Univers 00:00:00 00:00:00 Only Unassigned, AMBAR 350.1.13.10 ity of [place] [facility] 4.2.7.2.686 [place] [id number] [facility] [address] 2019-04-01 2019-04-01 Orders Doctor FRANCES [id number] 00:00:00 00:00:00 Only Unassigned, AMBAR 350.1.13.10 [place] [facility] 4.2.7.2.686 [id number] [facility] 2019-03-26 2019-03-26 [facility] [id number] [place] [address] 13:10:26 13:34:57 Kamini Kee REAL ESTATE TRANSACTION COORDINATOR 350.1.13.10 i ty of Visit [facility] 4.2.7.2.686 [place] MATERNAL [id number] Med ical & CHILD 107 [facility] [place] 2019-03-26 2019-03-26 [facility] [id number] 13:10:26 13:34:57 Kamini Kee REAL ESTATE TRANSACTION COORDINATOR 350.1.13.10 Visit REGIONAL 4.2.7.2.686 MATERNAL [id number] & CHILD 107 [facility] 2019-03-22 2019-03-22 Telephone JE Brooke [id number] Univers 00:00:00 00:00:00 Galina JIMENEZ 350.1.13.10 ity of [place] [id number] [facility] [address] 2019-03-21 2019-03-21 Orders Doctor FRANCES 1.2.840.114 [id number] Univers 00:00:00 00:00:00 Only Unassigned, AMBAR 350.1.13.10 ity of [place] [facility] 4.2.7.2.686 [place] [id number] [facility] 009 Branch 2019-03-17 2019-03-17 [facility] [id number] Univers 00:00:00 00:00:00 Management Galina JIMENEZ 350.1.13.10 ity of [place] 4[place] [id number] [facility] [address] 2019-03-17 2019-03-17 [facility] [id number] 00:00:00 00:00:00 Management Galina JIMENEZ 350.1.13.10 CLINICS 4.2.7.2.686 [id number] [facility] 2019-03-15 2019-03-15 Telephone DIETER Álvarez [id number] Univers 00:00:00 00:00:00 Kamini Kee REAL ESTATE TRANSACTION COORDINATOR 350.1.13.10 it y of [facility] 4.2.7.2.686 [place] MATERNAL [id number] Med ical & CHILD [address] [place] [address] 2019-03-12 2019-03-12 [facility], Ang-Rm[facility] 1.2.840. [id number] Univers 14:05:53 14:06:34 Visit Kamini Álvarez REAL ESTATE TRANSACTION COORDINATOR 350.1.13.10 ity of [facility] 4.2.7.2.686 [place] MATERNAL [id number] Med ical & CHILD [address] [place] [address] 2019-03-12 2019-03-12 Routine Henri WARAFAELA [id number] Univers 13:22:41 14:03:26 Kamini N REAL ESTATE TRANSACTION COORDINATOR 350.1.13.10 i ty of Visit REGIONAL 4.2.7.2.686 [place] MATERNAL [id number] [facility] ical & CHILD 107 [facility] [place] 2019-03-12 2019-03-12 Orders Doctor FRANCES [id number] Univers 00:00:00 00:00:00 Only Unassigned, AMBAR 350.1.13.10 ity of [place] [facility] 4.2.7.2.686 [place] [id number] [address] 2019-03-12 2019-03-12 Orders Doctor FRANCES 1.2.840.114 [id number] 54 00:00:00 00:00:00 Only Unassigned, AMBAR [id number] [facility] [id number] 2019-03-09 2019-03-09 Case DUNCAN Brooke [id number] [facility] 00:00:00 00:00:00 Management [employer] [facility] [id number] [id number] [phone] [address] 2019-02-24 2019-02-24 Office DUNCAN Brooke [id number] [facility] 10:25:40 12:32:56 Visit [employer] [facility] [id number] [id number] [phone] [address] 2019-02-24 2019-02-24 Orders Doctor FRANCES [id number] [employer] 00:00:00 00:00:00 Only Unassigned, AMBAR [id number] ity of [facility] [id number] [place] [phone] [address] Results Test Description Test Time Test [...] POCT U APPEAR (test code = 3267) [facility] [id number] 00:39:56 Reactive and reassuringOne contraction with mild irritability on [place] Oliviachandrika Fernando MD?04/01/2019?7:39 [facility] - WET [id number] 23:17:00 Test Item Value Reference Range Interpretation Comments Wet Prep (test code No Trichomonas vaginalis = [id number]) present [facility] URINALYSIS W SPECIFIC [id number] 18:23:00 Test Item Value Reference Range Interpretation [...] POCT U APPEAR (test code = 3267) [facility] URINALYSIS W SPECIFIC [id number] 18:23:00 Test Item Value Reference Range Interpretation [...] POCT U APPEAR (test code = 3267) [facility] SPECIFIC [id number] 18:31:00 Test Item Value Reference Range Interpretation [...] POCT U APPEAR (test code = 3267) [facility]
--- NOTE | 2022-04-01 12:46 | EDPHYS ---
Physician Documentation [facility] Name: Noa Yoon Age: 26 yrs Sex: Female : 1995 Arrival Date: 04/01/2022 Time: 12:21 Bed 9 Private MD: ED Physician Farhad Mosquera HPI: 04/01 12:38 This 26 yrs old Female presents to ER via Ambulatory with complaints of Skin cp Problem. 12:39 The patient's rash thought to be caused by an unknown cause. The rash is located on the cp face. The rash can be described as erythematous, swelling. Onset: The symptoms/episode began/occurred yesterday. Associated signs and symptoms: Pertinent positives: Pain Pertinent negatives: fever. Severity of symptoms: in the emergency department the symptoms are unchanged despite home interventions. 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 - Social history:: Smoking status: Patient denies any tobacco usage or history of. ROS: 12:40 Eyes: Negative for injury, pain, redness, and discharge. cp 12:40 Constitutional: Negative for fever. 12:40 ENT: Negative for drainage from ear(s), ear pain, sore throat, difficulty swallowing, difficulty handling secretions. 12:40 Respiratory: Negative for cough, shortness of breath, wheezing. 12:40 Abdomen/GI: Negative for abdominal pain, nausea, vomiting, and diarrhea. 12:40 Skin: Positive for erythema, rash, of the face. 12:40 All other systems are negative. Exam: 12:42 Constitutional: The patient appears in no acute distress, alert, awake, comfortable, cp non-toxic, well developed, well nourished. 12:42 Head/face: Noted is rash, appears with erythema, swelling, tender to touch. 12:42 Eyes: Periorbital structures: appear normal, Conjunctiva: normal, no exudate, no injection, Lids and lashes: appear normal, bilaterally. 12:42 ENT: External ear(s): are unremarkable, Nose: is normal, Posterior pharynx: Airway: no evidence of obstruction, patent. 12:42 Chest/axilla: Inspection: normal. 12:42 Cardiovascular: Rate: normal. 12:42 Respiratory: the patient does not display signs of respiratory distress, Respirations: normal, no use of accessory muscles, no retractions, labored breathing, is not present. Vital Signs: 12:31 BP 117 / 71; Pulse 82; Resp 16; Temp 98.0; Pulse Ox 99% on R/A; iw MDM: 12:35 Patient medically screened. cp 12:40 Differential diagnosis: impetigo, cellulitis, erysipelas. cp 12:46 Data reviewed: vital signs, nurses notes. cp 12:46 Counseling: I had a detailed discussion with the patient and/or guardian regarding: the cp historical points, exam findings, and any diagnostic results supporting the discharge/admit diagnosis, to return to the emergency department if symptoms worsen or persist or if there are any questions or concerns that arise at home. Administered Medications: No medications were administered Disposition: 14:08 Co-signature as Attending Physician, Farhad Mosquera MD. rn Disposition Summary: 04/01/22 12:46 Discharge Ordered Location: Home cp Problem: new cp Symptoms: have improved cp Condition: Stable cp Diagnosis - Local infection of the skin and subcutaneous tissue, unspecified cp Followup: cp - With: Private Physician - When: 2 - 3 days - Reason: Worsening of condition Discharge Instructions: - Discharge Summary Sheet cp Forms: - Medication Reconciliation Form cp - Thank You Letter cp - Antibiotic Education cp - Prescription Opioid Use cp Prescriptions: - mupirocin 2 % Topical ointment - apply 1 application by TOPICAL route 3 times per day for 7 days; 30 gram; cp Refills: 0, Product Selection Permitted - Clindamycin HCl 300 mg Oral Capsule - take 1 capsule by ORAL route every 8 hours for 10 days; 30 capsule; Refills: 0, cp Product Selection Permitted Signatures: Yumi Álvarez, RN Farhad Landeros MD MD rn Page, Corey, PA PA cp Leyda Merino RN RN kb3
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
[2022-04-01 13:08] VITALS: BP 117/71; TEMP 98; O2SAT 99
== END 2022-04-01 13:00 | disposition home or self-care (01) ==
LOC: ER 12:18
DX: L08.9 Local infection of the skin and subcutaneous tissue, unspecified (principal)
CPT/HCPCS: 99282

== ENCOUNTER 2024-04-18 13:47 | Emergency (ER) | payer SELFPAY ==
--- NOTE | 2024-04-18 13:59 | ER ---
Nurse's Notes [facility] Name: Noa Yoon Age: 28 yrs Sex: Female : 1995 Arrival Date: 04/18/2024 Time: 13:47 Bed 13 Private MD: Diagnosis: Allergic contact dermatitis due to other agents Presentation: 04/18 13:57 Chief complaint: Itchy rash on right forearm and hand x 2 days. Coronavirus screen: At this time, the client does not indicate any symptoms associated with coronavirus-19. Ebola Screen: No symptoms or risks identified at this time. Initial Sepsis Screen: Does the patient meet any 2 criteria? No. Patient's initial sepsis screen is negative. Does the patient have a suspected source of infection? No. Patient's initial sepsis screen is negative. Risk Assessment: Do you want to hurt yourself or someone else? Patient reports no desire to harm self or others. Onset of symptoms was April 17, 2024. 13:57 Method Of Arrival: Ambulatory hb 13:57 Acuity: JULIETTE 4 hb Historical: - Allergies: 13:59 No Known Allergies; hb - Home Meds: 13:59 None [Active]; hb - PMHx: 13:59 None; hb - PSHx: 13:59 section; hb - Immunization history:: Adult Immunizations up to date. - Infectious Disease History:: Denies. - Social history:: Smoking status: Patient denies any tobacco usage or history of. Screenin:03 [facility] ED Fall Risk Assessment (Adult) History of falling in the last 3 months, ko1 including since admission No falls in past 3 months (0 pts) Confusion or Disorientation No (0 pts) Intoxicated or Sedated No (0 pts) Impaired Gait No (0 pts) Mobility Assist Device Used No (0 pt) Altered Elimination No (0 pt) Score/Fall Risk Level 0 - 2 = Low Risk Oriented to surroundings, Maintained a safe environment, Assessed \T\ reinforced patient's understanding of fall precautions, Hourly rounding (assess needs \T\ fall precautionary measures) done. Abuse screen: Denies threats or abuse. Denies injuries from another. Nutritional screening: No deficits noted. Tuberculosis screening: No symptoms or risk factors identified. Assessment: 14:03 General: Appears in no apparent distress. Behavior is calm, cooperative, appropriate ko1 for age. Pain: Denies pain. Neuro: No deficits noted. Cardiovascular: No deficits noted. Respiratory: No deficits noted. GI: No deficits noted. : No deficits noted. EENT: No deficits noted. Derm: Reports rash to arm. Musculoskeletal: No deficits noted. Vital Signs: 13:57 BP 124 / 74; Pulse 71; Resp 16; Temp 97.4(TE); Pulse Ox 99% on R/A; Pain 0/10; hb 13:57 Pain Scale: Adult hb ED Course: 13:51 Patient arrived in ED. mg5 13:52 Meme Woods PA-C [facility]. sb4 13:52 Farhad Mosquera MD is Attending Physician. sb4 13:52 Maty Toscano, RN is Primary Nurse. ko1 13:59 Triage completed. hb 13:59 Arm band placed on. hb 14:03 Patient has correct armband on for positive identification. Bed in low position. Call ko1 light in reach. Provided Education on: call light. Pulse ox on. NIBP on. Door closed. Noise minimized. Lights dimmed. 14:03 No provider procedures requiring assistance completed. Patient did not have IV access ko1 during this emergency room visit. Administered Medications: No medications were administered Medication: 14:03 VIS not applicable for this client. ko1 Outcome: 13:58 Discharge ordered by . sb4 14:03 Discharged to home ambulatory, ko1 14:03 Condition: stable 14:03 Discharge instructions given to patient, Instructed on discharge instructions, follow up and referral plans. medication usage, Demonstrated understanding of instructions, follow-up care, medications, Prescriptions given X 1, 14:05 Patient left the ED. ko1 Signatures: Cheryl Catherine, RN RN Maty Toscano, RN RN ko1 Meme Woods PA-C PA-C 4 Scarlet Ray mg5
--- NOTE | 2024-04-18 13:59 | EDPHYS ---
Physician Documentation [facility] Name: Noa Yoon Age: 28 yrs Sex: Female : 1995 Arrival Date: 04/18/2024 Time: 13:47 Bed 13 Private MD: ED Physician Farhad Mosquera HPI: 04/18 14:00 This 28 yrs old Female presents to ER via Ambulatory with complaints of Rash. sb4 14:00 The patient's rash thought to be caused by Contact allergy an unknown cause. The rash sb4 is located on the right forearm, right pinky. The rash can be described as erythematous, raised. Onset: The symptoms/episode began/occurred 2 day(s) ago. Associated signs and symptoms: Pertinent negatives: fever, itching, nausea, Pain. Treatment given at home: triple antibiotic ointment. The patient has not experienced similar symptoms in the past. The patient has not recently seen a physician. Historical: - Allergies: 13:59 No Known Allergies; hb - Home Meds: 13:59 None [Active]; hb - PMHx: 13:59 None; hb - PSHx: 13:59 section; hb - Immunization history:: Adult Immunizations up to date. - Infectious Disease History:: Denies. - Social history:: Smoking status: Patient denies any tobacco usage or history of. ROS: 14:00 Constitutional: Negative for fever, chills, and weight loss, sb4 14:00 Skin: Positive for rash, 14:00 All other systems are negative, Exam: 14:00 Constitutional: This is a well developed, well nourished patient who is awake, alert, sb4 and in no acute distress. Head/Face: Normocephalic, atraumatic. Eyes: Extra-ocular motions intact. Periorbital areas with no swelling, redness, or edema. ENT: Mucous membranes moist. 14:00 Skin: rash a mild rash is noted, contact dermatitis, on the right forearm and right pinky, Vital Signs: 13:57 BP 124 / 74; Pulse 71; Resp 16; Temp 97.4(TE); Pulse Ox 99% on R/A; Pain 0/10; hb 13:57 Pain Scale: Adult hb MDM: 13:52 Patient medically screened. sb4 14:00 Data reviewed: vital signs, nurses notes, and as a result, I will discharge patient. sb4 Counseling: I had a detailed discussion with the patient and/or guardian regarding the historical points, exam findings, and any diagnostic results supporting the discharge/admit diagnosis, to return to the emergency department if symptoms worsen or persist or if there are any questions or concerns that arise at home. Administered Medications: No medications were administered Disposition: 04/19 07:42 Co-signature as Attending Physician, Farhad Mosquera MD I reviewed the patient's care rn provided by the Advanced Practice Provider and agree with the diagnosis and treatment plan. Disposition Summary: 04/18/24 13:58 Discharge Ordered Notes: Location: Home sb4 Problem: new sb4 Symptoms: are unchanged sb4 Condition: Stable sb4 Diagnosis - Allergic contact dermatitis due to other agents sb4 Followup: sb4 - With: Emergency Department - When: As needed - Reason: Wound Recheck, Worsening of condition Discharge Instructions: - Discharge Summary Sheet sb4 - Contact Dermatitis, Aoly-ab-Lbum sb4 Forms: - Patient Portal Instructions sb4 - Leadership Thank You Letter sb4 Prescriptions: - Hydrocortisone 0.5 % Topical Cream - apply 1 application TOPICAL route every 12 hours As needed; 30 gram; Refills: sb4 0, Product Selection Permitted Signatures: Farhad Mosquera MD MD rn Baxter, Heather, RN RN hb Brown, Sophia, PA-C PA-C sb4
[2024-04-18 14:09] VITALS: BP 124/74; TEMP 97.4; O2SAT 99
== END 2024-04-18 14:05 | disposition home or self-care (01) ==
LOC: ER 13:47
DX: L23.89 Allergic contact dermatitis due to other agents (principal)
CPT/HCPCS: 99283

== ENCOUNTER 2024-05-06 08:47 | Inpatient (IN) | payer SELFPAY ==
--- OUTSIDE RECORDS SUMMARY | 2024-05-06 08:50 | XMS REPORT | Continuity of Care Document ---
Author Name Unknown Address [address] [facility] [place] [address] Organization [facility] thconnect Address [address] [facility] [address] [place] [address] Care Team Providers Care Software Development Specialist Name Role Phone Kamini Small Attending Clinician [phone] Abdullahi VANCE, Olivia Birch Attending Clinician [phone] Doctor Unassigned, Centre Attending Clinician U capri Brooke MD, Galina Joel Attending Clinician + [phone] [facility], [facility] Attending Clinician Unavailable Abdullahi VANCE, Olivia Birch Admitting Clinician [phone] Payers Payer Name Policy Type Policy Number Effective Date Expirati on Date Source Problems Condition Name Condition Details Condition Category Status Onset Date Resolution Date Last Treatment Date Treating Clinician Comments Source Anemia of mother in , antepartum Anemia of mother in , antepartum Disease Active 12 00:00: 00 [facility] Tubal ligation status Tubal ligation status Disease Active 8-09 00:00: 00 [facility] Abnormal quad screen Abnormal quad screen Disease Active 15 00:00: 00 Overview: OSB 1:15, may need recalcula tion [facility] 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), currently 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), currently Disease Active 17 00:00: 00 Overview: Address pp [facility] High-risk , third trimester High-risk , third trimester Disease Active 2016-08 00:00: 00 Overview: See scanned records for prior visit [facility] Previous delivery affecting , antepartum Previous delivery affecting , antepartum Disease Active 2016-08 00:00: 00 Overview: X2 [facility] Multiparit y Multiparit y Disease Active 2016-08 00:00: 00 [facility] Social History Social Habit Start Date Stop Date Quantity Comments Source ASSERTION 2018-08-25 00:00:00 [facility] Alcohol intake [facility] Sex Assigned At [facility] Smoking Status Start Date Stop Date Source Never smoker [facility] Medications Ordered Medication Name Filled Medication Name Start Date Stop Date Current Medication? Ordering Clinician Indication Dosage Frequency Signature (SIG) Comments Components Source metroNIDAZO LE 250 mg tablet 04-01 00:00: 00 04-09 04:59 :00 No [id number] 500mg Take 2 tablets by mouth 2 (two) times daily for 7 days. [facility] Iron, Cbn & Gluc-FA-B12 -C-DSS (FERRALET 90 DUAL-IRON DELIVERY) 90-1-12-50 mg-mg-mcg-m g per tablet 03-15 00:00: 00 Yes [id number] 1{tbl} Take 1 tablet by mouth daily. [facility] vit 33-iron-fol ic-dha (SELECT-OB + DHA) 29 mg iron-1 mg -250 mg combo pack 03-12 00:00: 00 Yes [id number] 1{packe t} Take 1 Packet by mouth daily. [facility] Nitrofurant oin&Nit. Macrocryst 100 mg capsule 02-22 00:00: 00 03-12 00:00 :00 No [id number] 100mg Take 1 capsule by mouth 2 (two) times daily. [facility] PNV 67-iron ps-folate no.1-dha (VITAFOL ULTRA) 29 mg iron- 1 mg-200 mg Cap 01-15 00:00: 00 03-12 00:00 :00 No [id number] 1{each} Take 1 Each by mouth daily. [facility] Vital Signs Vital Name Observation Time Observation Value Comments S ource Systolic blood pressure 2019-04-09 18:45:00 111 mm[Hg] [facility] Diastolic blood pressure 2019-04-09 18:45:00 63 mm[Hg] [facility] Heart rate 2019-04-09 18:45:00 81 /min [facility] Body temperature 2019-04-09 18:45:00 36.89 Alana [facility] Respiratory rate 2019-04-09 18:45:00 16 /min [facility] Body height 2019-04-09 18:45:00 157.5 cm [facility] Body weight 2019-04-09 18:45:00 59.648 kg [facility] BMI 2019-04-09 18:45:00 24.05 kg/m2 [facility] Systolic blood pressure 2019-04-09 18:45:00 111 mm[Hg] [facility] Diastolic blood pressure 2019-04-09 18:45:00 63 mm[Hg] [facility] Heart rate 2019-04-09 18:45:00 81 /min [facility] Body temperature 2019-04-09 18:45:00 36.89 Al[facility] Respiratory rate 2019-04-09 18:45:00 16 /min [facility] Body height 2019-04-09 18:45:00 157.5 cm [facility] Body weight 2019-04-09 18:45:00 59.648 kg [facility] BMI 2019-04-09 18:45:00 24.05 kg/m2 [facility] Heart rate 2019-04-02 00:45:00 91 /min [facility] Oxygen saturation in Arterial blood by Pulse oximetry 2019-04-02 00:30:00 100 /min [facility] Systolic blood pressure 2019-04-01 23:46:00 108 mm[Hg] [facility] Diastolic blood pressure 2019-04-01 23:46:00 68 mm[Hg] [facility] Body temperature 2019-04-01 21:57:00 36.67 Alana [facility] Respiratory rate 2019-04-01 21:57:00 16 /min [facility] Heart rate 2019-04-02 00:45:00 91 /min [facility] Oxygen saturation in Arterial blood by Pulse oximetry 2019-04-02 00:30:00 100 /min [facility] Systolic blood pressure 2019-04-01 23:46:00 108 mm[Hg] [facility] Diastolic blood pressure 2019-04-01 23:46:00 68 mm[Hg] [facility] Body temperature 2019-04-01 21:57:00 36.67 Alana [facility] Respiratory rate 2019-04-01 21:57:00 16 /min [facility] Systolic blood pressure 2019-03-26 18:20:00 118 mm[Hg] [facility] Diastolic blood pressure 2019-03-26 18:20:00 68 mm[Hg] [facility] Heart rate 2019-03-26 18:20:00 62 /min [facility] Body temperature 2019-03-26 18:20:00 36.72 Alana [facility] Respiratory rate 2019-03-26 18:20:00 16 /min [facility] Body height 2019-03-26 18:20:00 157.5 cm [facility] Body weight 2019-03-26 18:20:00 58.514 kg [facility] BMI 2019-03-26 18:20:00 23.59 kg/m2 [facility] Systolic blood pressure 2019-03-26 18:20:00 118 mm[Hg] [facility] Diastolic blood pressure 2019-03-26 18:20:00 68 mm[Hg] [facility] Heart rate 2019-03-26 18:20:00 62 /min [facility] Body temperature 2019-03-26 18:20:00 36.72 Alana [facility] Respiratory rate 2019-03-26 18:20:00 16 /min [facility] Body height 2019-03-26 18:20:00 157.5 cm [facility] Body weight 2019-03-26 18:20:00 58.514 kg [facility] BMI 2019-03-26 18:20:00 23.59 kg/m2 [facility] Systolic blood pressure 2019-03-12 18:28:00 109 mm[Hg] [place] [facility] Diastolic blood pressure 2019-03-12 18:28:00 68 mm[Hg] [place] [facility] Heart rate 2019-03-12 18:28:00 98 /min [facility] Body temperature 2019-03-12 18:28:00 36.72 Alana [facility] Respiratory rate 2019-03-12 18:28:00 20 /min [facility] Body height 2019-03-12 18:28:00 157.5 cm [facility] Body weight 2019-03-12 18:28:00 57.323 kg [facility] BMI 2019-03-12 18:28:00 23.11 kg/m2 [facility] Procedures Procedure Date / Time Performed Performing Clinician Source POCT URINALYSIS 2019-04-09 18:46:00 Lucy Razo [facility] NON-STRESS TEST 2019-04-02 00:38:50 Olivia Fernando [facility] ADC CLC OR LCC ONLY - WET PREP 2019-04-01 22:38:00 Olivia Fernando [facility] NOTICE OF PRIVACY PRACTICES 2019-04-01 21:37:21 Doctor Unassigned, Centre [facility] ASSIGNMENT OF BENEFITS 2019-04-01 21:36:29 Docto r Unassigned, Centre [facility] POCT URINALYSIS 2019-03-26 18:22:00 Lucy Razo [facility] SCANNED LAB RESULTS 2019-03-21 05:01:00 Doctor Trini chin, Centre [facility] TDAP (ADACEL) IMMUNIZATION 2019-03-12 18:36:28 Kamini Álvarez [facility] POCT URINALYSIS 2019-03-12 18:31:00 Lcuy Razo [facility] STERILIZATION CONSENT FORM 2019-03-12 05:01:00 Doctor Unassigned, Centre [facility] GENETICS COUNSELING NOTE 2019-02-24 05:01:00 Doc tor Unassigned, Centre [facility] Encounters Start Date/Time End Date/Time Encounter Type Admission Type Attending [facility] Care Facility Care Department Encounter ID Source 2019-04-09 13:26:49 2019-04-09 13:53:34 Routine Visit Kamini Álvarez [facility] [employer]IDEO [employer]AME PROGRAM[employer] [facility] 1.2.840.114 350.1.13.10 4.2.7.2.686 [id number] [facility] 2019-04-09 13:26:49 2019-04-09 13:53:34 Routine Visit Kamini Álvarez [facility] 1.2.840.114 350.1.13.10 4.2.7.2.686 [id number] 2019-04-01 16:38:02 2019-04-01 19:54:00 Hospital Encounter Olivia Fernando [facility] 1.2.840.114 350.1.13.10 4.2.7.2.686 [id number] [facility] 2019-04-01 16:38:02 2019-04-01 19:54:00 Hospital Encounter Olivia Fernando [facility] 1.2.840.114 350.1.13.10 4.2.7.2.686 [id number] 2019-04-01 00:00:00 2019-04-01 00:00:00 Orders Only Doctor Unassigned, Centre [facility] 1.2.840.114 350.1.13.10 4.2.7.2.686 [id number] [facility] 2019-04-01 00:00:00 2019-04-01 00:00:00 Orders Only Doctor Unassigned, Centre [place] [id number] 350.1.13.10 4.2.7.2.686 [id number] 2019-03-26 13:10:26 2019-03-26 13:34:57 Routine Visit Kamini Álvarez [facility] [employer] [facility] 1.2.840.114 350.1.13.10 4.2.7.2.686 [id number] [facility] 2019-03-26 13:10:26 2019-03-26 13:34:57 Routine Visit Kamini Álvarez [facility] [employer] [facility] 1.2.840.114 350.1.13.10 4.2.7.2.686 [id number] 2019-03-22 00:00:00 2019-03-22 00:00:00 Telephone Edwardo [facility] 1.2840.114 350.1.13.10 4.2.7.2.686 [id number] [facility] 2019-03-21 00:00:00 2019-03-21 00:00:00 Orders Only Doctor Unassigned, Centre [facility] 1.2.840.114 350.1.13.10 4.2.7.2.686 [id number] [facility] 2019-03-17 00:00:00 2019-03-17 00:00:00 Case Management [place] [facility] 1.2.840.114 350.1.13.10 4.2.7.2.686 [id number] [facility] 2019-03-17 00:00:00 2019-03-17 00:00:00 Case Management [place] [facility] 1.2.840.114 350.1.13.10 4.2.7.2.686 [id number] 2019-03-15 00:00:00 2019-03-15 00:00:00 Telephone Kamini Álvarez [facility] [employer]IDEO [employer] [facility] 1.2.840.114 350.1.13.10 4.2.7.2.686 [id number] [facility] 2019-03-12 14:05:53 2019-03-12 14:06:34 Boiler Service Technician Visit Lab, [facility] Kamini Álvarez [place] [facility] [employer] PROGRAM[employer] [facility] 1.2.840.114 350.1.13.10 4.2.7.2.686 [id number] [facility] 2019-03-12 13:22:41 2019-03-12 14:03:26 Routine Visit HenriKamini Ch[place]ango [facility] 1.2.840.114 350.1.13.10 4.2.7.2.686 [id number] [facility] 2019-03-12 00:00:00 2019-03-12 00:00:00 Orders Only Doctor Unassigned, Centre [facility] 1.2840.114 350.1.13.10 4.2.7.2.686 [id number] [facility] 2019-03-12 00:00:00 2019-03-12 00:00:00 Orders Only Doctor Unassigned, Centre [facility] 1.2.840.114 350.1.13.10 4.2.7.2.686 [id number] 2019-03-09 00:00:00 2019-03-09 00:00:00 Case Management Galina Brooke [facility] 1.2840.114 350.1.13.10 4.2.7.2.686 [id number] [facility] 2019-02-24 10:25:40 2019-02-24 12:32:56 Office Visit Galina Brooke [facility] 1.2840.114 350.1.13.10 4.2.7.2.686 [id number] [facility] 2019-02-24 00:00:00 2019-02-24 00:00:00 Orders Only Doctor Unassigned, Centre [facility] 1.2.840.114 350.1.13.10 4.2.7.2.686 [id number] [facility] Results Test Description Test Time Test Comments Results Result Co mments Source [facility] [id number] 00:39:56 Reactive and reassuringOne contraction with mild irritability on Stevinson Oliviachandrika Fernando MD?04/01/2019?7:39 [facility] - WET [id number] 23:17:00* Test Item Value Reference Range Interpretation Comme nts Wet Prep (test code = [id number]) No Trichomonas vaginalis present [facility] W SPECIFIC [id number] 18:23:00* Test Item Value Reference Range Interpretation Comme nts POCT U SP GRAV (test code = 3255) . 1.005-1.025 POCT PH U (test code = 3254) . 5-8 POCT U LEUK EST (test code = 3263) . Negative - N egative POCT U NIT (test code = 3262) . Negative - Negati ve POCT U PROT (test code = 3259) neg Negative - Negat francisca POCT U GLU (test code = 3256) neg Negative - Negati ve POCT U KETONE (test code = 3258) . Negative - Neg ative POCT U UROBILI (test code = 3260) . 0.2-1 POCT U BILI (test code = 3261) . Negative - Negat francisca POCT U BLD (test code = 3257) . Negative - Negati ve POCT U COLOR (test code = 3266) POCT U APPEAR (test code = 3267) [facility] W SPECIFIC [id number] 18:23:00* Test Item Value Reference Range Interpretation Comme nts POCT U SP GRAV (test code = 3255) . 1.005-1.025 POCT PH U (test code = 3254) . 5-8 POCT U LEUK EST (test code = 3263) . Negative - N egative POCT U NIT (test code = 3262) . Negative - Negati ve POCT U PROT (test code = 3259) neg Negative - Negat francisca POCT U GLU (test code = 3256) neg Negative - Negati ve POCT U KETONE (test code = 3258) . Negative - Neg ative POCT U UROBILI (test code = 3260) . 0.2-1 POCT U BILI (test code = 3261) . Negative - Negat francisca POCT U BLD (test code = 3257) . Negative - Negati ve POCT U COLOR (test code = 3266) POCT U APPEAR (test code = 3267) [facility] W SPECIFIC [id number] 18:31:00* Test Item Value Reference Range Interpretation Comme nts POCT U SP GRAV (test code = 3255) . 1.005-1.025 POCT PH U (test code = 3254) . 5-8 POCT U LEUK EST (test code = 3263) . Negative - N egative POCT U NIT (test code = 3262) . Negative - Negati ve POCT U PROT (test code = 3259) neg Negative - Negat francisca POCT U GLU (test code = 3256) neg Negative - Negati ve POCT U KETONE (test code = 3258) . Negative - Neg ative POCT U UROBILI (test code = 3260) . 0.2-1 POCT U BILI (test code = 3261) . Negative - Negat francisca POCT U BLD (test code = 3257) . Negative - Negati ve POCT U COLOR (test code = 3266) POCT U APPEAR (test code = 3267) [facility]
[2024-05-06] MEDS ORDERED: MAGNES/ALUMIN/SIMET 30ML UCUP ONE (09:16)
[2024-05-06] MEDS ORDERED: LIDOCAINE VISCOUS 2% 10ML ORAL SOLN ONE (09:16)
[2024-05-06] MEDS ORDERED: FAMOTIDINE 20 MG/2 ML VIAL IV ONE (09:16)
[2024-05-06 09:43] LABS: Absolute Eosinophils 0.2 K/uL (0-0.5); Absolute Lymphocytes (CBC) 1.3 K/uL (0.7-4.9); Absolute Monocytes 0.2 K/uL (0.1-1.3); Absolute Neutrophil 2.4 K/uL (1.8-8.0); Basophils % 0.6 % (0-1.3); Eosinophils % 5.1 % (0-4.4); Hemoglobin 11.8 g/dL (12.0-15.0); Lymphocytes % 31.7 % (15.3-44.8); MCH 26.4 pg (27.0-35.0); MCHC 32.6 g/dL (32.0-36.0); MCV 80.9 fL (80-100); MPV 8.8 fL (7.6-11.3); Neutrophils % 57.6 % (41.7-73.7); Nucleated Red Blood Cells % 0.1 % (0-0); Platelets 151 thou/uL (152-406); RBC Red Blood Cell Count 4.45 M/uL (3.86-4.86); Red Cell Distribution Width 15.2 % (12.1-15.2)
[2024-05-06 09:55] LABS: AST/SGOT 12 U/L (15-37); Albumin 3.6 g/dL (3.4-5.0); Albumin/Globulin Ratio 1.1 (1.1-1.8); Alkaline Phosphatase 58 U/L (45-117); Anion Gap 6.5 mEq/L (5.0-15.0); BUN Blood Urea Nitrogen 10 mg/dL (7-18); Bicarbonate 27 mEq/L (21-32); Bilirubin Total 0.6 mg/dL (0.2-1.0); Globulin 3.3 g/dL (2.3-3.5); Glomerular Filtration Rate 115 ml/min (=/>90); Glucose Level 100 mg/dL (74-106); Lipase 34 U/L (13-75); Potassium 3.5 mEq/L (3.5-5.1); Protein, Total 6.9 g/dL (6.4-8.2); Sodium Level 139 mEq/L (136-145)
[2024-05-06 10:01] LABS: ALT/SGPT < 14 U/L (13-56)
[2024-05-06 10:04] LABS: Specific Gravity > 1.030 (1.005-1.030); Sqamous Epithelial <5 /HPF (None Seen); Urine Bacteria <20 /HPF (<20); Urine Bilirubin NEGATIVE (Negative); Urine Blood 1+ (Negative); Urine Clarity Clear (Clear); Urine Color Yellow (Yellow); Urine Culture Reflex Order NOT NEEDED; Urine Glucose NEGATIVE (Negative); Urine Ketones 2+ (Negative); Urine Microscopic Reflex YN ORDER UMIC; Urine Mucus 1+ /HPF (None Seen); Urine Nitrite NEGATIVE (Negative); Urine Protein TRACE (Negative); Urine RBC <5 /HPF (None Seen); Urine Urobilinogen 1+ (Normal); Urine WBC <5 /HPF (<5); Urine pH 6.5 (5.0-7.0)
[2024-05-06] MEDS ORDERED: MORPHINE 4 MG/ML SYR ONE (10:22)
--- NOTE | 2024-05-06 10:32 | RAD REPORT ---
EXAMINATION: CT ABDOMEN AND PELVIS WITH CONTRAST CLINICAL INDICATION: Abdominal pain TECHNIQUE: CT abdomen and pelvis was performed, after the administration of 100 cc Isovue-300.. Sagit brittaney and coronal reconstructions were obtained. One or more of the following dose reduction techniques were used: Automated exposure control, adjustment of the mA and/or kV according to patien t size, and/or iterative reconstruction. Unless otherwise specified, incidental findings do not require dedicated imaging follow-up. [id number]. Oral contrast was not given which limits evaluation of b owel and appendix. COMPARISON: none FINDINGS: The liver, spleen, pancreas, and adrenals appear unremarkable. Bilateral extrarenal pelves are present. No renal mass 2 calcifications are present within the appendix. The largest 5 mm. Appendix is fluid-filled borderli ne dilated. No abscess. No free air. Small amount of free fluid Diastases rectus abdominis muscles 5 cm No adnexal mass : IMPRESSION: Calcifications within the appendix with borderline dilatation. This probably indicates early appendic itis
[2024-05-06] MEDS ORDERED: NA CHLORIDE 0.9% 100 ML ONE (10:54)
[2024-05-06] MEDS ORDERED: PIPERACIL/TAZO 3.375 GM VIAL IV ONE (10:54)
--- NOTE | 2024-05-06 11:00 | EDPHYS ---
Physician Documentation [facility] Name: Noa Yoon Age: 28 yrs Sex: Female : 1995 Arrival Date: 05/06/2024 Time: 08:47 Bed 16 Private MD: ED Physician Steven Rae HPI: 05/06 09:18 This 28 yrs old Female presents to ER via Ambulatory with complaints of ms3 Abdominal Pain. 09:18 28-year-old female with no past medical history presents to the emergency department ms3 for epigastric abdominal pain that began at 6 AM. Patient rates her pain 10/10. Patient denies any alleviating or inciting factors. Patient denies nausea, vomiting, diarrhea, fevers, chills.. 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 - Infectious Disease History:: Denies. - Social history:: Smoking status: Patient denies any tobacco usage or history of. ROS: 09:18 Constitutional: Negative for fever, and chills. Neck: Negative for injury, pain, and ms3 swelling, Cardiovascular: Negative for chest pain, and palpitations. Respiratory: Negative for shortness of breath, cough, wheezing, and pleuritic chest pain, 09:18 MS/Extremity: Negative for injury and deformity, Skin: Negative for injury, rash, and discoloration, 09:18 Abdomen/GI: Positive for abdominal pain, Exam: 09:18 Constitutional: This is a well developed, well nourished patient who is awake, alert, ms3 and in no acute distress. Chest/axilla: Normal chest wall appearance and motion. Nontender with no deformity. Cardiovascular: Regular rate and rhythm with a normal S1 and S2. No gallops, murmurs, or rubs. Normal PMI, no JVD. No pulse deficits. Respiratory: Lungs have equal breath sounds bilaterally, clear to auscultation and percussion. No rales, rhonchi or wheezes noted. No increased work of breathing, no retractions or nasal flaring. Skin: Warm, dry with normal turgor. Normal color with no rashes, no lesions, and no evidence of cellulitis. 09:21 Abdomen/GI: Inspection: abdomen appears normal, Bowel sounds: normal, Palpation: ms3 moderate abdominal tenderness, in the left upper quadrant, Vital Signs: 08:58 BP 125 / 89; Pulse 73; Resp 16; Temp 98.4; Pulse Ox 100% ; Pain 10/10; ll1 11:05 BP 133 / 95; Pulse 63; Resp 16; Pulse Ox 100% on R/A; ll1 08:58 Pain Scale: Adult ll1 MDM: 09:13 Patient medically screened. ms3 09:18 Differential diagnosis: bowel obstruction, gastroesophageal reflux disease, ms3 non-specific abd pain, pancreatitis. 11:00 Data reviewed: vital signs, nurses notes, lab test result(s), radiologic studies, and ms3 as a result, I will admit patient. Consideration of Admission/Observation Patient was admitted/placed on observation. Management of patient was discussed with the following: Hospitalist: RUI Pratt with Dr Kim. Radiotelegraph Operator Servicer: Dr Calhoun. I considered the following discharge prescriptions or medication management in the emergency department Medications were administered in the Emergency Department. See MAR. Counseling: I had a detailed discussion with the patient and/or guardian regarding the historical points, exam findings, and any diagnostic results supporting the discharge/admit diagnosis, lab results, radiology results, the need for further work-up and treatment in the hospital. ED course: Discussed labs and imaging with the patient. Discussed conversation with Dr. Calhoun and necessity for observation with patient. Patient understands and agrees with plan.. 05/06 09:13 Order name: CBC with Diff; Complete Time: 10:20 ms3 05/06 09:13 Order name: CMP; Complete Time: 10:20 ms3 05/06 09:13 Order name: Lipase; Complete Time: 10:20 ms3 05/06 09:13 Order name: Test, Urine; Complete Time: 10:20 ms3 05/06 09:13 Order name: Urinalysis w/ reflexes; Complete Time: 10:20 ms3 05/06 11:32 Order name: Basic Metabolic Panel EDMS 05/06 11:32 Order name: Basic Metabolic Panel EDMS 05/06 11:32 Order name: Basic Metabolic Panel EDMS 05/06 11:32 Order name: Basic Metabolic Panel EDMS 05/06 11:32 Order name: CBC with Automated Diff EDMS 05/06 11:32 Order name: CBC with Automated Diff EDMS 05/06 11:32 Order name: CBC with Automated Diff EDMS 05/06 11:32 Order name: CBC with Automated Diff EDMS 05/06 11:32 Order name: Magnesium EDMS 05/06 11:32 Order name: Magnesium EDMS 05/06 11:32 Order name: Magnesium EDMS 05/06 11:32 Order name: Magnesium EDMS 05/06 11:32 Order name: Phosphorus EDMS 05/06 11:32 Order name: Phosphorus EDMS 05/06 11:32 Order name: Phosphorus EDMS 05/06 11:32 Order name: Phosphorus EDMS 05/06 09:13 Order name: CT Abd/Pelvis - IV Contrast Only; Complete Time: 10:33 ms3 05/06 11:32 Order name: CONS Physician Consult EDMS 05/06 09:13 Order name: IV Saline Lock; Complete Time: 09:28 ms3 05/06 09:13 Order name: Labs collected and sent; Complete Time: 09:28 ms3 Administered Medications: 09:41 Drug: Famotidine IVP 20 mg IVP once; dilute with 10 mL 0.9% NaCl; give over 2 minutes ll1 Route: IVP; Site: left antecubital; 10:11 Follow up: Response: No adverse reaction ll1 09:41 Drug: GI Cocktail without - (Maalox PO 30 ml, Lidocaine Mucous Membrane 2 % 15 ll1 ml) PO once Route: PO; 10:11 Follow up: Response: No adverse reaction ll1 10:32 Drug: morphine IVP or IV 4 mg IVP once over 4 mins {Note: RASS 0, pain 8/10.} Route: ll1 IVP; Infused Over: 4 mins; Site: left antecubital; 10:58 Follow up: Response: No adverse reaction; Pain is decreased; RASS: Alert and Calm (0) ll1 10:57 Drug: Piperacillin-Tazobactam IVPB 3.375 grams IVPB once over 60 mins; (mix in NS 100 ll1 mL) Route: IVPB; Infused Over: 60 mins; Site: left antecubital; 11:37 Follow up: Response: No adverse reaction; IV Status: Completed infusion; IV Intake: ll1 100ml Disposition Summary: 05/06/24 11:00 Hospitalization Ordered Notes: Hospitalization Status: Observation ms3 Provider: Horacio Kim ms3 Location: Telemetry/MedSurg (observation) ms3 Condition: Stable ms3 Problem: new ms3 Symptoms: are unchanged ms3 Bed/Room Type: Standard ms3 Room Assignment: 204(05/06/24 11:46) bc6 Diagnosis - Unspecified acute appendicitis ms3 - Abdominal pain, unspecified ms3 - Anemia, unspecified ms3 Forms: - Medication Reconciliation Form ms3 - SBAR form ms3 - Leadership Thank You Letter ms3 Signatures: Dispatcher [employer] Stephanie Ricks RN RN ll1 Steven Rae DO DO ms3 Codi Cummings bc6 Corrections: (The following items were deleted from the chart) 09:21 09:18 Constitutional: This is a well developed, well nourished patient who is awake, ms3 alert, and in no acute distress. Chest/axilla: Normal chest wall appearance and motion. Nontender with no deformity. Cardiovascular: Regular rate and rhythm with a normal S1 and S2. No gallops, murmurs, or rubs. Normal PMI, no JVD. No pulse deficits. Respiratory: Lungs have equal breath sounds bilaterally, clear to auscultation and percussion. No rales, rhonchi or wheezes noted. No increased work of breathing, no retractions or nasal flaring. Abdomen/GI: Soft, non-tender, with normal bowel sounds. No distension or tympany. No guarding or rebound. No evidence of tenderness throughout. Skin: Warm, dry with normal turgor. Normal color with no rashes, no lesions, and no evidence of cellulitis. ms3 11:46 11:00 ms3 bc6
--- NOTE | 2024-05-06 11:00 | ER ---
Nurse's Notes [facility] Name: Noa Yoon Age: 28 yrs Sex: Female : 1995 Arrival Date: 05/06/2024 Time: 08:47 Bed 16 Private MD: Diagnosis: Unspecified acute appendicitis;Abdominal pain, unspecified;Anemia, unspecified Presentation: 05/06 08:55 Coronavirus screen: Client denies travel out of the [place] in the last 14 days. At this ll1 time, the client does not indicate any symptoms associated with coronavirus-19. Ebola Screen: Patient denies travel to an Ebola-affected area in the 21 days before illness onset. Initial Sepsis Screen: Does the patient meet any 2 criteria? No. Patient's initial sepsis screen is negative. Does the patient have a suspected source of infection? No. Patient's initial sepsis screen is negative. Risk Assessment: Do you want to hurt yourself or someone else? Patient reports no desire to harm self or others. 08:55 Method Of Arrival: Ambulatory ll1 08:55 Acuity: JULIETTE 3 ll1 08:58 Chief complaint: Patient states: Mid abdominal pain started this AM. Onset of symptoms ll1 was May 06, 2024. Triage Assessment: 08:59 General: Appears uncomfortable, Behavior is calm, cooperative, appropriate for age. ll1 Pain: Complains of pain in abdomen Pain currently is 10 out of 10 on a pain scale. Quality of pain is described as aching, crampy. GI: Reports lower abdominal pain, upper abdominal pain, cramping. 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 - Infectious Disease History:: Denies. - Social history:: Smoking status: Patient denies any tobacco usage or history of. Screenin:28 [facility] ED Fall Risk Assessment (Adult) History of falling in the last 3 months, ll1 including since admission No falls in past 3 months (0 pts) Confusion or Disorientation No (0 pts) Intoxicated or Sedated No (0 pts) Impaired Gait No (0 pts) Mobility Assist Device Used No (0 pt) Altered Elimination No (0 pt) Score/Fall Risk Level 0 - 2 = Low Risk Maintained a safe environment, Hourly rounding (assess needs \T\ fall precautionary measures) done. Abuse screen: Denies threats or abuse. Nutritional screening: No deficits noted. Tuberculosis screening: No symptoms or risk factors identified. Assessment: 10:00 Reassessment: No changes from previously documented assessment. requesting pain ll1 medicine, Dr. Rae informed. 10:32 Reassessment: No changes from previously documented assessment. Patient and/or family ll1 updated on plan of care and expected duration. Pain level reassessed. 10:58 Reassessment: No changes from previously documented assessment. Patient and/or family ll1 updated on plan of care and expected duration. Pain level reassessed. Patient is alert, oriented x 3, equal unlabored respirations, skin warm/dry/pink. 11:56 GI: Bowel sounds present X 4 quads. Abd is soft Abdomen is tender to palpation in ss umbilical area. Vital Signs: 08:58 BP 125 / 89; Pulse 73; Resp 16; Temp 98.4; Pulse Ox 100% ; Pain 10/10; ll1 11:05 BP 133 / 95; Pulse 63; Resp 16; Pulse Ox 100% on R/A; ll1 08:58 Pain Scale: Adult ll1 ED Course: 08:51 Patient arrived in ED. mg5 08:54 Arm band placed on Patient placed in an exam room, on a stretcher. ll1 08:55 Triage completed. ll1 09:06 Steven Rae DO is Attending Physician. ms3 09:06 Stephanie Mazariegos, RN is Primary Nurse. ll1 09:28 Patient has correct armband on for positive identification. Bed in low position. Call 1 light in reach. Provided Education on: ER procedures and process. Client placed on continuous cardiac and pulse oximetry monitoring. NIBP monitoring applied. 09:28 Inserted saline lock: 20 gauge in right antecubital area, using aseptic technique. ll1 Blood collected. Flushed with 10 mL NS. 09:41 Lipase Sent. ll1 09:41 CMP Sent. ll1 09:41 CBC with Diff Sent. ll1 09:52 Urinalysis w/ reflexes Sent. ll1 09:52 Test, Urine Sent. ll1 10:16 CT Abd/Pelvis - IV Contrast Only In Process Unspecified. EDMS 10:59 Horacio Kim is Hospitalizing Provider. ms3 11:56 No provider procedures requiring assistance completed. Patient admitted, IV remains in ss place. Administered Medications: 09:41 Drug: Famotidine IVP 20 mg IVP once; dilute with 10 mL 0.9% NaCl; give over 2 minutes ll1 Route: IVP; Site: left antecubital; 10:11 Follow up: Response: No adverse reaction ll1 09:41 Drug: GI Cocktail without - (Maalox PO 30 ml, Lidocaine Mucous Membrane 2 % 15 ll1 ml) PO once Route: PO; 10:11 Follow up: Response: No adverse reaction ll1 10:32 Drug: morphine IVP or IV 4 mg IVP once over 4 mins {Note: RASS 0, pain 8/10.} Route: ll1 IVP; Infused Over: 4 mins; Site: left antecubital; 10:58 Follow up: Response: No adverse reaction; Pain is decreased; RASS: Alert and Calm (0) ll1 10:57 Drug: Piperacillin-Tazobactam IVPB 3.375 grams IVPB once over 60 mins; (mix in NS 100 ll1 mL) Route: IVPB; Infused Over: 60 mins; Site: left antecubital; 11:37 Follow up: Response: No adverse reaction; IV Status: Completed infusion; IV Intake: ll1 100ml Medication: 09:28 VIS not applicable for this client. ll1 Intake: 11:37 IV: 100ml; Total: 100ml. 1 Outcome: 11:00 Decision to Hospitalize by Provider. ms3 11:56 Admitted to Med/surg accompanied by [facility], via wheelchair, room 204, with chart, Report ss called to faxed to 2nd 11:56 Condition: stable 11:56 Instructed on the need for admit, 12:07 Patient left the ED. 1 Signatures: Dispatcher [employer] EDJennifer Hill RN RN ss Lewis, Lynsay, RN RN ll1 Steven Rae DO DO ms3 Scarlet Ray mg5 Corrections: (The following items were deleted from the chart) 09:11 08:58 BP 125 / 89; Pulse 73bpm; Pulse Ox 100%; Temp 98.4F; Pain 10/10, Adult; ll1 ll1
--- NOTE | 2024-05-06 11:02 | P.HP ---
Certification for Inpatient Patient admitted to: Inpatient With expected LOS: >2 Midnights Practitioner: I am a practitioner with admitting privileges, knowledge of patient current condition, hospital course, and medical plan of care. Services: Services provided to patient in accordance with Admission requirements found in Title 42 Section 412.3 of the Code of Federal Regulations Patient History Date of Service: 05/06/24 Reason for admission: Acute early appendicitis History of Present Illness: Noa Yoon is a 28 year old female with no past medical hisotry who pres ents to the ED with chief complaint of epigastric abdominal pain that began around 6 AM. She reports getting ready to go to work but started having abdominal pain. She denies nausea, vomiting, and diarrhea. CT abdomen pelvis report "Calcifications within the appendix with borderline dilatation. This probably indicates early appendicitis". laboratory evaluation grossly unremarkable. Initial vitals stable and afebrile. Noa will be admitted to hospitalist service for further evaluation and treatment of early appendicitis, Dr. Calhoun consulted. Allergies No Known Allergies Allergy (Unverified 09/26/17 16:26) Home Medications: NK [No Home Meds] 05/06/24 - Past Medical/Surgical History Diabetic: No Past Medical History: Patient denies medical history -: C/S 2015 - Family History Family History: Reviewed- Non-Contributory - Social History Smoking Status: Never smoker Alcohol use: No CD- Drugs: No Caffeine use: No Review of Systems Gastrointestinal: Abdominal Pain Physical Examination - Studies Laboratory Data (last 24 hrs) 05/06/24 05/06/24 09:29 09:29 WBC 4.20 L Hgb 11.8 L Hct 36.0 Plt Count 151 L Sodium 139 Potassium 3.5 BUN 10 Creatinine 0.72 Glucose 100 Total Bilirubin 0.6 AST 12 L ALT < 14 Alkaline Phosphatase 58 Lipase 34 Assessment and Plan - Plan Assessment and plan Acute appendicitis -CT abdomen pelvis report "Calcifications within the appendix with borderline dilatation. This probably indicates early appendicitis". -Consult Dr. Clahoun -N.p.o. at midnight, plan for surgery in the a.m. -Continue Zosyn -IV fluids -Pain control DVT PPx SCD -Full code LOS 2 days Discharge Plan: Home Plan to discharge in: 48 Hours - Advance Directives Does patient have a Living Will: No Does patient have a Durable POA for Healthcare: No
[2024-05-06] MEDS ORDERED: MORPHINE 2 MG/ML SYR IV PRN (11:27)
[2024-05-06] MEDS ORDERED: ONDANSETRON 4 MG/2 ML VIAL IV PRN (11:27)
[2024-05-06 12:52] VITALS: BMI 22.3
[2024-05-06] MEDS: NA CHLORIDE 0.9% 1,000 ML IV SCH (14:30)
[2024-05-06] MEDS ORDERED: PIPER TAZO 3.375 GM in NA CHLORIDE 0.9% 100 ML IV SCH (17:00)
--- NOTE | 2024-05-06 18:59 | CON ---
Date of Consultation: 05/06/2024 Reason For Consultation: Abdominal pain. History Of Present Illness: The patient is a 28-year-old female who presents with acute onset of epi gastric abdominal pain and periumbilical abdominal pain started at 6 a.m. Pain does not radiate to a ny other parts of her abdomen. The pain is better after she was given pain medication. She denies a ny nausea, vomiting, diarrhea, constipation, blood in her stool. No dysuria or hematuria. No sore t hroat, runny nose, cough, headaches, or dizziness. No chest pain. No fevers or chills. The patient has never had pain like this before. As stated, the patient is essentially asymptomatic at this [facility]. Review of Systems: Otherwise, unremarkable. Past Medical History: Negative. Past Surgical History: . Allergies: NO ALLERGY. Social History: She denies smoking or drinking alcohol. Family History: Significant for prostate cancer in the father. Physical Examination: Vital Signs: Stable. She is afebrile. General: She is awake, alert, oriented x3. She is Senegalese speaking. 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 Head and Neck: No masses. Chest: Clear. Heart: S1, S2. Abdomen: Soft, nondistended, nontender. Positive bowel sounds. No rebound. No rigidity. No guard ing. No sign of tenderness anywhere. Extremities: Adequately perfused. Nontender. Neuro: Nonfocal. Laboratory Data: White count is 4.2, there is no left shift. Chemistry reviewed, essentially within normal limits. CT of the abdomen and pelvis reviewed which shows calcification within the appendix with borderline dilatation, may indicate early appendicitis. Assessment: Abdominal pain, etiology unclear. At this time, if the patient is completely asymptomat ic, could be early appendicitis, based on the CT finding, however, clinically she does not have any s igns of appendicitis. Recommendations: We should do serial abdominal exams. Check CBC in the morning, and if her symptoms worsen, she may need a diagnostic laparoscopy. However, at this time, there is no indication for an y surgical intervention. We will treat her with IV antibiotics and follow this patient closely. Sirnea n of care discussed with the hospitalist team and the patient. LYUDMILA/AMANDA Voice ID: [id number] Report ID: [id number]
[2024-05-06] MEDS: PIPER TAZO 3.375 GM in NA CHLORIDE 0.9% 100 ML IV SCH (20:07)
[2024-05-07 00:42] VITALS: O2SAT 100
[2024-05-07 05:16] LABS: Absolute Eosinophils 0.3 K/uL (0-0.5); Absolute Lymphocytes (CBC) 1.5 K/uL (0.7-4.9); Absolute Monocytes 0.2 K/uL (0.1-1.3); Absolute Neutrophil 2.4 K/uL (1.8-8.0); Basophils % 0.9 % (0-1.3); Eosinophils % 7.2 % (0-4.4); Hematocrit 33.1 % (36.0-45.0); Hemoglobin 10.8 g/dL (12.0-15.0); Lymphocytes % 32.4 % (15.3-44.8); MCH 26.6 pg (27.0-35.0); MCHC 32.7 g/dL (32.0-36.0); MCV 81.2 fL (80-100); Monocytes % 5.4 % (3.3-12.3); Neutrophils % 54.1 % (41.7-73.7); Platelets 131 thou/uL (152-406); RBC Red Blood Cell Count 4.08 M/uL (3.86-4.86); Red Cell Distribution Width 15.3 % (12.1-15.2)
[2024-05-07 05:26] LABS: Anion Gap 7.8 mEq/L (5.0-15.0); Magnesium 1.9 mg/dL (1.6-2.4); Phosphorus 3.1 mg/dL (2.5-4.9); Potassium 3.8 mEq/L (3.5-5.1)
[2024-05-07] MEDS: KCL 20 MEQ/100 mL IVPB 20 MEQ/100 ML BAG IV ONE (08:37)
[2024-05-07] MEDS: CIPROFLOXACIN HCL 500 MG TAB PO SCH (11:58)
[2024-05-07] MEDS: metroNIDAZOLE 500 MG TABLET PO SCH (11:58)
[2024-05-07 12:59] VITALS: BP 108/59; TEMP 97.3
--- NOTE | 2024-05-07 14:15 | P.DS ---
Admission Date: 05/06/24 Discharge Date: 05/07/24 Disposition: ROUTINE DISCHARGE Discharge Condition: GOOD Reason for Admission: Acute early appendicitis Brief History of Present Illness: Diagnosis Acute Early appendicitis Proteinnuria Anemia of unknown etiology Thrombocytopenia HPI 05/06/24 Noa Yoon is a 28 year old female with no past medical hisotry who presents to the ED with chief complaint of epigastric abdominal pain that began around 6 AM. She reports getting ready to go to work but started having abdominal pain. She denies nausea, vomiting, and diarrhea. CT abdomen pelvis report "Calcifications within the appendix with borderline dilatation. This probably indicates early appendicitis". laboratory evaluation grossly unremarkable. Initial vitals stable and afebrile. Noa will be admitted to hospitalist service for further evaluation and treatment of early appendicitis, Dr. Calhoun consulted. Hospital Course: Noa Yoon is a pleasant 28 year old female with no past medical hisotry who was admitted to the [facility] on 05/06/24 for Acute appendicitis. Noa presented with right lower quadrant abdominal pain, CT abd/pelvis showed indications for early appendicitis. Dr. Calhoun was consulted for further evaluation. She was observed overnight and remained afebrile, WBC WNL, ambulating independently and denies right lower quadrant abdominal pain. Dr. Calhoun has cleared her for discharge, she will need further monitoring as this is early appendicitis the symptoms may return. She has been instructed to follow up with Dr. Calhoun. She has tolerated IV zosyn, a regular diet and denies nausea, vomiting, and diarrhea. She has remained afebrile this admission. On 05/07/24, Noa was seen on morning rounds and deemed medically stable for discharge home with family support. Noa was discharged with instructions to schedule follow-up appointments with PCP and Dr. Calhoun. Noa was provided prescriptions for Cipro and flagyl Physical Exam: General: AAO x 3, NAD HENT: MMM, nares normal Head/Neck: normocephalic, atraumatic, neck supple Respiratory: symmetrical chest expansion, no accessory muscle used, lungs clear on auscultation , on RA Cardiac: Regular rate and rhythm, no murmurs or gallops, S1 S2 present Extremities: No edema present, peripheral pulses 2+ Abdominal: soft on palpation, NT/ ND Skin: warm pink and dry, no rash Neurological: clear speech, appropriate Psych: normal mood and affect, judgment appropriate Vital Signs/Physical Exam: Temp Pulse Resp BP Pulse Ox 97.3 F 62 16 108/59 L 98 05/07/24 12:00 05/07/24 12:00 05/07/24 12:00 05/07/24 12:00 05/07/24 12:00 Laboratory Data at Discharge: WBC 4.50 thou/uL (4.3-10.9) 05/07/24 04:37 Hgb 10.8 g/dL (12.0-15.0) L D 05/07/24 04:37 Hct 33.1 % (36.0-45.0) L 05/07/24 04:37 Plt Count 131 thou/uL (152-406) L 05/07/24 04:37 Sodium 139 mEq/L (136-145) 05/07/24 04:37 Potassium 3.8 mEq/L (3.5-5.1) 05/07/24 04:37 BUN 6 mg/dL (7-18) L 05/07/24 04:37 Creatinine 0.71 mg/dL (0.55-1.02) 05/07/24 04:37 Glucose 95 mg/dL (74-106) 05/07/24 04:37 Phosphorus 3.1 mg/dL (2.5-4.9) 05/07/24 04:37 Magnesium 1.9 mg/dL (1.6-2.4) 05/07/24 04:37 Total Bilirubin 0.6 mg/dL (0.2-1.0) 05/06/24 09:29 AST 12 U/L (15-37) L 05/06/24 09:29 ALT < 14 U/L (13-56) 05/06/24 09:29 Alkaline Phosphatase 58 U/L (45-117) 05/06/24 09:29 Lipase 34 U/L (13-75) 05/06/24 09:29 Home Medications: Ciprofloxacin HCl [Cipro 500 MG Tablet] 500 mg PO BID 7 Days #14 tab 05/07/24 metroNIDAZOLE [Flagyl*] 500 mg PO TID 7 Days #21 tab 05/07/24 New Medications: Ciprofloxacin HCl [Cipro 500 MG Tablet] 500 mg PO BID 7 Days #14 tab metroNIDAZOLE [Flagyl*] 500 mg PO TID 7 Days #21 tab Physician Discharge Instructions: 1. Please call and schedule a follow-up appointment with your PCP in 3-5 days - Please follow-up with your PCP for medication refills/adjustments 2. Please call and schedule a follow-up appointment with Dr. Calhoun in one week 3. Continue regular diet 4. No activity restrictions 5. Return to the ED if symptoms worsen, It's likely these symptoms will return New medications Cipro 500 mg p.o. twice daily x 7 days Flagyl 500 mg p.o. twice daily DC x 7 days One work letter provided to return to work on Friday. This letter will be sufficient for both work places. Diet: Regular Activity: Ad karissa Followup: NONE,NONE [Primary Care Provider] - Joaquin Calhoun MD [ACTIVE - CAN ADMIT] - 1 Week
--- NOTE | 2024-05-07 14:27 | PN ---
Date of Progress Note: 05/07/2024 Subjective: The patient is awake, alert. No complaints. Tolerated clear liquids last night. She i s hungry this morning. Objective: Vital Signs: Stable. She is afebrile currently. Abdomen: Soft, nondistended, nontender. Positive bowel sounds. There is absolutely no evidence of any tenderness anywhere in the abdomen. Laboratory Data: Her white count is 4.5. There is no left shift. Assessment: Questionable acute appendicitis. Recommendations: Advance diet if tolerated. The patient can be discharged home on Cipro and Flagyl with followup as an outpatient on a p.r.n. basis. Plan of care discussed with the hospitalist. LYUDMILA/AMANDA Voice ID: [id number] Report ID: [id number]
== END 2024-05-07 14:59 | disposition home or self-care (01) | DRG 395 ==
LOC: ER 08:47 → ERHOLD 11:27 → 2ND 12:07
PROVIDERS: ADMIT Internal Medicine; ATTEND Internal Medicine
DX: K35.80 Unspecified acute appendicitis (principal); D64.9 Anemia, unspecified; D69.6 Thrombocytopenia, unspecified; R80.9 Proteinuria, unspecified
CPT/HCPCS: 36415; 74177; 80048; 80053; 81001; 81025; 83690; 83735; 84100; 85025; 96365; 96375; 99285; J2543; J3480; J7030; Q9967

== ENCOUNTER 2024-10-22 12:39 | Emergency (ER) | payer SELFPAY ==
--- OUTSIDE RECORDS SUMMARY | 2024-10-22 12:43 | XMS REPORT | Continuity of Care Document ---
Author Name Unknown Address [address] [place] [address] [facility] Address [address] [place] [address] Care Team Providers Care Global Logistics Manager Name Role Phone Kamini Small Attending Clinician [phone] Abdullahi VANCE, Olivia Birch Attending Clinician [phone] Doctor Unassigned, [place] Attending Clinician U Galina Fierro MD Attending Clinician + [phone] [facility] Clinician Unavailable Abdullahi VANCE, Olivia Birch Admitting Clinician [phone] Payers Payer Name Policy Type Policy Number Effective Date Expirati on Date Source Problems Condition Name Condition Details Condition Category Status Onset Date Resolution Date Last Treatment Date Treating Clinician Comments Source Anemia of mother in , antepartum Anemia of mother in , antepartum Disease Active 03-15 00:00: 00 [facility] Tubal ligation status Tubal ligation status Disease Active 8-09 00:00: 00 [facility] Abnormal quad screen Abnormal quad screen Disease Active 02-15 00:00: 00 Overview: OSB 1:15, may need recalcula tion [facility] 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), currently 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), currently Disease Active 01-18 00:00: 00 Overview: Address [facility] High-risk , third trimester High-risk , third trimester Disease Active 2016-08 00:00: 00 Overview: See scanned records for prior visit [facility] Previous delivery affecting , antepartum Previous delivery affecting , antepartum Disease Active 2016-08 00:00: 00 Overview: X2 [facility] Multiparit y Multiparit y Disease Active 2016-08 00:00: 00 [facility] Social History Social Habit Start Date Stop Date Quantity Comments Source ASSERTION 2018-08-25 00:00:00 [facility] Alcohol intake [facility] Sex Assigned At [facility] Smoking Status Start Date Stop Date Source Never smoker [facility] Medications Ordered Medication Name Filled Medication Name Start Date Stop Date Current Medication? Ordering Clinician Indication Dosage Frequency Signature (SIG) Comments Components Source metroNIDAZO LE 250 mg tablet 04-01 00:00: 00 04-09 04:59 :00 No [id number] 500mg Take 2 tablets by mouth 2 (two) times daily for 7 days. [facility] Iron, Cbn & Gluc-FA-B12 -C-DSS (FERRALET 90 DUAL-IRON DELIVERY) 90-1-12-50 mg-mg-mcg-m g per tablet 03-15 00:00: 00 Yes [id number] 1{tbl} Take 1 tablet by mouth daily. [facility] vit 33-iron-fol ic-dha (SELECT-OB + DHA) 29 mg iron-1 mg -250 mg combo pack 03-12 00:00: 00 Yes [id number] 1{packe t} Take 1 Packet by mouth daily. [facility] Nitrofurant oin&Nit. Macrocryst 100 mg capsule 02-22 00:00: 00 03-12 00:00 :00 No [id number] 100mg Take 1 capsule by mouth 2 (two) times daily. [facility] PNV 67-iron ps-folate no.1-dha (VITAFOL ULTRA) 29 mg iron- 1 mg-200 mg Cap 2019-0 6-14 00:00: 00 03-12 00:00 :00 No [id number] 1{each} Take 1 Each by mouth daily. [facility] Vital Signs Vital Name Observation Time Observation Value Comments S melonie Systolic blood pressure 2019-04-09 18:45:00 111 mm[Hg] [facility] Diastolic blood pressure 2019-04-09 18:45:00 63 mm[Hg] [facility] Heart rate 2019-04-09 18:45:00 81 /min Unive [facility] Body temperature 2019-04-09 18:45:00 36.89 Alana [facility] Respiratory rate 2019-04-09 18:45:00 16 /min [facility] Body height 2019-04-09 18:45:00 157.5 cm [facility] Body weight 2019-04-09 18:45:00 59.648 kg [facility] BMI 2019-04-09 18:45:00 24.05 kg/m2 [facility] Systolic blood pressure 2019-04-09 18:45:00 111 mm[Hg] [facility] Diastolic blood pressure 2019-04-09 18:45:00 63 mm[Hg] [facility] Heart rate 2019-04-09 18:45:00 81 /min [facility] Body temperature 2019-04-09 18:45:00 36.89 Alana [facility] Respiratory rate 2019-04-09 18:45:00 16 /min [facility] Body height 2019-04-09 18:45:00 157.5 cm [facility] Body weight 2019-04-09 18:45:00 59.648 kg [facility] BMI 2019-04-09 18:45:00 24.05 kg/m2 [facility] Heart rate 2019-04-02 00:45:00 91 /min [facility] Oxygen saturation in Arterial blood by Pulse oximetry 2019-04-02 00:30:00 100 /min [facility] Systolic blood pressure 2019-04-01 23:46:00 108 mm[Hg] [facility] Diastolic blood pressure 2019-04-01 23:46:00 68 mm[Hg] [facility] Body temperature 2019-04-01 21:57:00 36.67 Alana [facility] Respiratory rate 2019-04-01 21:57:00 16 /min [facility] Heart rate 2019-04-02 00:45:00 91 /min [facility] Oxygen saturation in Arterial blood by Pulse oximetry 2019-04-02 00:30:00 100 /min [facility] Systolic blood pressure 2019-04-01 23:46:00 108 mm[Hg] [facility] Diastolic blood pressure 2019-04-01 23:46:00 68 mm[Hg] [facility] Body temperature 2019-04-01 21:57:00 36.67 Alana [facility] Respiratory rate 2019-04-01 21:57:00 16 /min [facility] Systolic blood pressure 2019-03-26 18:20:00 118 mm[Hg] [facility] Diastolic blood pressure 2019-03-26 18:20:00 68 mm[Hg] [facility] Heart rate 2019-03-26 18:20:00 62 /min Unive [facility] Body temperature 2019-03-26 18:20:00 36.72 Alana [facility] Respiratory rate 2019-03-26 18:20:00 16 /min [facility] Body height 2019-03-26 18:20:00 157.5 cm [facility] Body weight 2019-03-26 18:20:00 58.514 kg [facility] BMI 2019-03-26 18:20:00 23.59 kg/m2 [facility] Systolic blood pressure 2019-03-26 18:20:00 118 mm[Hg] [facility] Diastolic blood pressure 2019-03-26 18:20:00 68 mm[Hg] [facility] Heart rate 2019-03-26 18:20:00 62 /min Unive [facility] Body temperature 2019-03-26 18:20:00 36.72 Alana [facility] Respiratory rate 2019-03-26 18:20:00 16 /min [facility] Body height 2019-03-26 18:20:00 157.5 cm [facility] Body weight 2019-03-26 18:20:00 58.514 kg [facility] BMI 2019-03-26 18:20:00 23.59 kg/m2 [facility] Systolic blood pressure 2019-03-12 18:28:00 109 mm[Hg] [facility] Diastolic blood pressure 2019-03-12 18:28:00 68 mm[Hg] [facility] Heart rate 2019-03-12 18:28:00 98 /min [facility] Body temperature 2019-03-12 18:28:00 36.72 Alana [facility] Respiratory rate 2019-03-12 18:28:00 20 /min [facility] Body height 2019-03-12 18:28:00 157.5 cm [facility] Body weight 2019-03-12 18:28:00 57.323 kg [facility] BMI 2019-03-12 18:28:00 23.11 kg/m2 [facility] Procedures Procedure Date / Time Performed Performing Clinician Source POCT URINALYSIS 2019-04-09 18:46:00 Lucy Razo [facility] NON-STRESS TEST 2019-04-02 00:38:50 Olivia Fernando [facility] ADC CLC OR LCC ONLY - WET PREP 2019-04-01 22:38:00 Olivia Fernando [facility] NOTICE OF PRIVACY PRACTICES 2019-04-01 21:37:21 Doctor Unassigned, [place] [facility] ASSIGNMENT OF BENEFITS 2019-04-01 21:36:29 Docto r Unassigned, [place] [facility] POCT URINALYSIS 2019-03-26 18:22:00 Lucy Razo [facility] SCANNED LAB RESULTS 2019-03-21 05:01:00 Doctor Trini chin, [place] [facility] TDAP (ADACEL) IMMUNIZATION 2019-03-12 18:36:28 Kamini Álvarez [facility] POCT URINALYSIS 2019-03-12 18:31:00 Lucy Razo [facility] STERILIZATION CONSENT FORM 2019-03-12 05:01:00 Doctor Unassigned, [place] [facility] GENETICS COUNSELING NOTE 2019-02-24 05:01:00 Doc tor Unassigned, [place] [facility] Encounters Start Date/Time End Date/Time Encounter Type Admission Type Attending Clinicians Care Facility Care Department Encounter ID Source 2019-04-09 13:26:49 2019-04-09 13:53:34 Routine Visit Kamini Álvarez [facility] INSTRUMENT AND CONTROL TECHNICIAN [facility] & CHILD [facility] 1.2.840.114 350.1.13.10 4.2.7.2.686 [id number] [facility] 2019-04-09 13:26:49 2019-04-09 13:53:34 Routine Visit Kamini Álvarez [facility] 1.2.840.114 350.1.13.10 4.2.7.2.686 [id number] 2019-04-01 16:38:02 2019-04-01 19:54:00 Hospital Encounter Olivia Fernando [facility] 1.2.840.114 350.1.13.10 4.2.7.2.686 [id number] [facility] 2019-04-01 16:38:02 2019-04-01 19:54:00 Hospital Encounter Olivia Fernando [facility] 1.2.840.114 350.1.13.10 4.2.7.2.686 [id number] 2019-04-01 00:00:00 2019-04-01 00:00:00 Orders Only Doctor Unassigned, [place] [facility] 1.2.840.114 350.1.13.10 4.2.7.2.686 [id number] [facility] 2019-04-01 00:00:00 2019-04-01 00:00:00 Orders Only Doctor Unassigned, [place] [facility] 1.2.840.114 350.1.13.10 4.2.7.2.686 [id number] 2019-03-26 13:10:26 2019-03-26 13:34:57 Routine Visit Kamini Álvarez [facility] INSTRUMENT AND CONTROL TECHNICIAN [facility]ILD [facility] 1.2.840.114 350.1.13.10 4.2.7.2.686 [id number] [facility] 2019-03-26 13:10:26 2019-03-26 13:34:57 Routine Visit Kamini Álvarez [facility] INSTRUMENT AND CONTROL TECHNICIAN [facility] 1.2.840.114 350.1.13.10 4.2.7.2.686 [id number] 2019-03-22 00:00:00 2019-03-22 00:00:00 [facility] 1.2840.114 350.1.13.10 4.2.7.2.686 [id number] [facility] 2019-03-21 00:00:00 2019-03-21 00:00:00 Orders Only Doctor Unassigned, [place] [facility] 1.2.840.114 350.1.13.10 4.2.7.2.686 [id number] [facility] 2019-03-17 00:00:00 2019-03-17 00:00:00 Case Management [facility] 1.2.840.114 350.1.13.10 4.2.7.2.686 [id number] [facility] 2019-03-17 00:00:00 2019-03-17 00:00:00 Case Management [facility] 1.2.840.114 350.1.13.10 4.2.7.2.686 [id number] 2019-03-15 00:00:00 2019-03-15 00:00:00 Telephone Kamini Álvarez [facility]/GYN [facility] CHILD [facility] 1.2.840.114 350.1.13.10 4.2.7.2.686 [id number] [facility] 2019-03-12 14:05:53 2019-03-12 14:06:34 Deputy Clerk Visit Lab, [facility] Kamini Álvarez [facility] INSTRUMENT AND CONTROL TECHNICIAN [facility] CHILD [facility] 1.2.840.114 350.1.13.10 4.2.7.2.686 [id number] [facility] 2019-03-12 13:22:41 2019-03-12 14:03:26 Routine Visit Kamini Álvarez [facility] 1.2.840.114 350.1.13.10 4.2.7.2.686 [id number] [facility] 2019-03-12 00:00:00 2019-03-12 00:00:00 Orders Only Doctor Unassigned, [place] [facility] 1.2.840.114 350.1.13.10 4.2.7.2.686 [id number] [facility] 2019-03-12 00:00:00 2019-03-12 00:00:00 Orders Only Doctor Unassigned, [place] [facility] 1.2.840.114 350.1.13.10 4.2.7.2.686 [id number] 2019-03-09 00:00:00 2019-03-09 00:00:00 Case Management Galina Brooke [facility] 1.2840.114 350.1.13.10 4.2.7.2.686 [id number] [facility] 2019-02-24 10:25:40 2019-02-24 12:32:56 Office Visit Galina Brooke [facility] 1.2840.114 350.1.13.10 4.2.7.2.686 [id number] [facility] 2019-02-24 00:00:00 2019-02-24 00:00:00 Orders Only Doctor Unassigned, [place] [facility] 1.2.840.114 350.1.13.10 4.2.7.2.686 [id number] [facility] Results Test Description Test Time Test Comments Results Result Co mments Source [facility] [id number] 00:39:56 Reactive and reassuringOne contraction with mild irritability on Lester Olivia Eyal Fernando MD?04/01/2019?7:39 [facility] - WET [id number] 23:17:00* Test Item Value Reference Range Interpretation Comme nts Wet Prep (test code = 6433031956) No Trichomonas vaginalis present [facility] W SPECIFIC [id number] 18:23:00* Test Item Value Reference Range Interpretation [...] POCT U APPEAR (test code = 3267) [facility] W SPECIFIC [id number] 18:23:00* Test Item Value Reference Range Interpretation [...] POCT U APPEAR (test code = 3267) [facility] W SPECIFIC [id number] 18:31:00* Test Item Value Reference Range Interpretation [...] POCT U APPEAR (test code = 3267) [facility]
--- NOTE | 2024-10-22 13:16 | EDPHYS ---
Physician Documentation [facility] Name: Noa Yoon Age: 29 yrs Sex: Female : 1995 Arrival Date: 10/22/2024 Time: 12:39 Bed IW2 Private MD: ED Physician Wang Chatterjee HPI: 10/22 13:17 This 29 yrs old Female presents to ER via Unassigned with complaints of Sinus ec2 Congestion. 13:17 Patient arrives today for evaluation of sinus congestion. reports 3d of symptoms. ec2 reports nausea, no vomiting, no diarrhea. denies any abd pain. no fevers. does complain of chills. no chronic medical problems, no daily meds, no allergies. ROS: 13:17 Constitutional: as per hpi ec2 Exam: 13:17 Constitutional: GEN: NAD Head: atraumatic Eyes: EOMI Ears: External ears are ec2 normal. CV: regular rate LUNGS: no respiratory distress ABD: non-distended SKIN: no evidence of rashes MSK: no evidence of trauma MDM: 13:16 Medical Screening Exam initiated ec2 13:19 Data reviewed: vital signs, nurses notes. ED course: Patient arrives today for ec2 evaluation of URI signs and symptoms. Examination is revealing for nontoxic individuals otherwise in no acute distress. Instructed the patient on orsq-wks-vdfvjiw medications, will give the patient steroids to help with the inflammation, will also give the patient has metolazone. Patient discharged home per return precautions given.. Administered Medications: 15:31 Drug: Dexamethasone IM 10 mg IM once Route: IM; Site: left deltoid; hb 15:31 Drug: Oxymetazoline Intranasal Drops (0.05 %) 1 sprays Intranasal once Route: hb Intranasal; Site: both nares; Disposition Summary: 10/22/24 13:16 Discharge Ordered Notes: Location: Home ec2 Condition: Stable ec2 Diagnosis - Viral infection, unspecified ec2 - Acute maxillary sinusitis ec2 Followup: ec2 - With: Private Physician - When: - Reason: Re-evaluation by your physician Discharge Instructions: - Discharge Summary Sheet ec2 - Sinusitis, Adult, Rztq-gl-Shnf ec2 - Viral Illness, Adult ec2 Forms: - Work release form ec2 - Medication Reconciliation Form ec2 - Antibiotic Education ec2 - Prescription Opioid Use ec2 - Patient Portal Instructions ec2 - Leadership Thank You Letter ec2 Prescriptions: - Prednisone 20 mg Oral Tablet - take 2 tablets ORAL route once daily for 5 days; 10 tablet; Refills: 0, Product ec2 Selection Permitted Signatures: hCeryl Catherine, RN RN Wang Chatterjee MD MD ec2
[2024-10-22] MEDS ORDERED: OXYMETAZOLINE HCL 0.05% 30ML NAS ONE (15:23)
[2024-10-22] MEDS ORDERED: dexAMETHasone 10 MG/ML VIAL ONE (15:23)
--- NOTE | 2024-10-22 15:37 | ER ---
Nurse's Notes [facility] Name: Noa Yoon Age: 29 yrs Sex: Female : 1995 Arrival Date: 10/22/2024 Time: 12:39 Bed IW2 [facility] MD: Diagnosis: Viral infection, unspecified;Acute maxillary sinusitis Presentation: 10/22 13:58 Chief complaint: Patient states: sinus congestion X 3 days. Coronavirus screen: At this iw time, the client does not indicate any symptoms associated with coronavirus-19. Ebola Screen: No symptoms or risks identified at this time. Risk Assessment: Do you want to hurt yourself or someone else? Patient reports no desire to harm self or others. 13:58 Method Of Arrival: Ambulatory iw 13:58 Acuity: JULIETTE 4 iw ED Course: 12:41 Patient arrived in ED. mr 12:56 Wang Chatterjee MD is Attending Physician. ec2 13:58 Triage completed. iw 15:30 Cheryl Catherine RN is Primary Nurse. hb Administered Medications: 15:31 Drug: Dexamethasone IM 10 mg IM once Route: IM; Site: left deltoid; hb 15:31 Drug: Oxymetazoline Intranasal Drops (0.05 %) 1 sprays Intranasal once Route: hb Intranasal; Site: both nares; Outcome: 13:16 Discharge ordered by . ec2 15:36 Patient left the ED. hb Signatures: Apolonia Cross, Reg Reg mr Yumi Álvarez RN RN Cheryl Catherine RN RN Wang Chatterjee MD MD ec2
== END 2024-10-22 15:36 | disposition home or self-care (01) ==
LOC: ER 12:39
DX: J01.00 Acute maxillary sinusitis, unspecified (principal); B34.9 Viral infection, unspecified
CPT/HCPCS: 96372; 99284; J1100